=== PATIENT | male | born 1940 | race African-American/Black ===

== ENCOUNTER 2016-08-24 15:18 | Inpatient (IN) | payer MEDICARE ==
[~2016-08-24] VITALS: Ht 175.3 cm; Wt 88.2 kg
[2016-08-24 15:50] LABS: BASO # 0.1 x10^3/uL (0.0-0.2); BASO % 2 % (0-3); EOS % 1 % (0-3); HEMOGLOBIN 12.3 g/dL (13.0-17.5); LYMPH % 31 % (24-48); MEAN CORPUSCULAR HEMOGLOBIN 34 pg (25-35); MEAN CORPUSCULAR HGB CONC 34 g/dL (31-37); MEAN CORPUSCULAR VOLUME 98 fL (79-100); MONO % 10 % (0-9); NEUT % 56 % (31-73); PLATELET COUNT 206 x10^3/uL (140-400); RED BLOOD COUNT 3.68 x10^6/uL (4.30-5.70); RED CELL DISTRIBUTION WIDTH 13.8 % (11.5-14.5); WHITE BLOOD COUNT 3.4 x10^3/uL (4.0-11.0)
--- NOTE | 2016-08-24 15:56 | RAD ---
Exam performed: One view chest. Indication: STROKE W/U Date of Service: 08/24/2016 5:40 PM Comparison: One view chest from 09/30/12. Single AP upright portable view chest findings: Cardiomediastinal silhouette is within upper limits of normal. There is minimal blunting of the left costophrenic angle likely tiny pleural effusion or pleural thickening. No acute infiltrates or pneumothorax is detected. The bony structures are normal. Impression: No acute cardiopulmonary process is detected.
[2016-08-24 15:57] LABS: PROTHROMBIN TIME PATIENT 12.9 SEC (11.7-14.0)
--- NOTE | 2016-08-24 16:05 | RAD ---
Exam performed: CT scan of the head without contrast. Date of Service: 04/30/13. Comparison: None available. Clinical History: Dizziness and syncope. Technique: Helical acquisitions are obtained from the foramen magnum to the vertex without intravenous administration of contrast. Findings: Mild prominence of cortical sulci and ventricular system with age related atrophy. There are areas of low-attenuation in both periventricular cortical deep white matter assisting small vessel ischemic changes. Normal kimbrough-white differentiation is maintained. There is no extra axial fluid collection, intraparenchymal hemorrhage or mass lesion. The visualized portions of the orbits, and the mastoid air cells appear clear. Mucoperiosteal thickening involving bilateral maxillary sinuses. The calvarium is intact. Impression: 1. No acute intracranial process detected. 2. Age-related atrophy and bilateral periventricular small vessel ischemic changes. 3. Chronic bilateral maxillary sinus disease. PQRS Compliance Statement: One or more of the following individualized dose reduction techniques were utilized for this examination: 1. Automated exposure control 2. Adjustment of the mA and/or kV according to patient size 3. Use of iterative reconstruction technique
[2016-08-24 16:08] LABS: CALCIUM 9.3 mg/dL (8.5-10.1); CREATININE 0.8 mg/dL (0.7-1.3); GFR 94.2; POTASSIUM 4.1 mmol/L (3.5-5.1)
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
[2016-08-24 16:16] LABS: ALBUMIN 2.9 g/dL (3.4-5.0); ALBUMIN/GLOBULIN RATIO 0.6 (1.0-1.7); MAGNESIUM 0.5 mg/dL (1.8-2.4); TOTAL BILIRUBIN 0.5 mg/dL (0.2-1.0); TOTAL PROTEIN 7.8 g/dL (6.4-8.2)
[2016-08-24] MEDS ORDERED: IV NORMAL SALINE 1000ML BAG 1,000 ML IV ONE (17:00)
[2016-08-24] MEDS ORDERED: fentaNYL PF VIAL 100 MCG/2 ML VIAL IV PRN (17:00)
[2016-08-24] MEDS ORDERED: ONDANSETRON PF 4 MG/2 ML VIAL. IV PRN (17:00)
[2016-08-24 18:20] VITALS: BP 160/89
[2016-08-24 18:28] VITALS: BP 160/89
[2016-08-24 19:10] VITALS: BP 146/75
[2016-08-24 23:10] VITALS: BP 129/83
--- NOTE | 2016-08-25 01:15 | HP ---
ADMIT DATE: 08/24/2016 CHIEF COMPLAINT: Leg weakness and alcohol withdrawal. HISTORY OF PRESENT ILLNESS: The patient is a pleasant 76-year-old male who drinks too much. States that he was in the shower, his legs gave out, he dropped to the ground. He may have almost passed out. He is complaining of some progressive weakness. I have discussed the case with the ER physician. We are going to admit the patient and consult Neurology. PAST MEDICAL HISTORY: Alcoholism, hypertension. ALLERGIES: None. FAMILY HISTORY: Diabetes. SOCIAL HISTORY: Drinks a lot of alcohol, no drugs. MEDICATIONS: Reviewed. REVIEW OF SYSTEMS: GENERAL: No history of weight change, weakness or fevers. SKIN: No bruising, hair changes or rashes. EYES: No blurred, double or loss of vision. NOSE AND THROAT: No history of nosebleeds, hoarseness or sore throat. HEART: No history of palpitations, chest pain or shortness of breath on exertion. LUNGS: Denies cough, hemoptysis, wheezing or shortness of breath. GASTROINTESTINAL: Denies changes in appetite, nausea, vomiting, diarrhea or constipation. GENITOURINARY: No history of frequency, urgency, hesitancy or nocturia. NEUROLOGIC: ____ weakness. PSYCHIATRIC: No history of panic, anxiety or depression. ENDOCRINE: No history of heat or cold intolerance, polyuria or polydipsia. EXTREMITIES: Denies muscle weakness, joint pain, pain on walking or stiffness. PHYSICAL EXAMINATION: VITAL SIGNS: Temperature afebrile, pulse 74, respirations 23, blood pressure 119/68. GENERAL: He is alert, cooperative. HEART: Normal S1, S2. LUNGS: Clear. ABDOMEN: Soft, positive bowel sounds. He has got some ascites. EXTREMITIES: 1+ edema. SKIN: No rashes. PSYCHIATRIC: Stable. VASCULAR: Good capillary refill. ENDOCRINE: No thyromegaly. LYMPHATICS: No cervical nodes. HEMATOPOIETIC: No bruising. ASSESSMENT AND PLAN: Transient ischemic attack. The patient has been admitted. We will check carotid Doppler, consult Neurology. Suspect he will need an MRI. Alcohol withdrawal protocol. PT, OT. RUSTY CALLE DO DR: SHAYNE/ta JOB#: [id number] / [id number]
[2016-08-25 03:10] VITALS: BP 145/77
[2016-08-25 05:00] LABS: BASO % 1 % (0-3); EOS % 0 % (0-3); HEMATOCRIT 32.9 % (39.0-53.0); HEMOGLOBIN 11.9 g/dL (13.0-17.5); LYMPH # 0.8 x10^3/uL (1.0-4.8); LYMPH % 22 % (24-48); MEAN CORPUSCULAR HEMOGLOBIN 35 pg (25-35); MEAN CORPUSCULAR HGB CONC 36 g/dL (31-37); MEAN CORPUSCULAR VOLUME 97 fL (79-100); MONO % 13 % (0-9); NEUT % 64 % (31-73); PLATELET COUNT 198 x10^3/uL (140-400); RED CELL DISTRIBUTION WIDTH 13.6 % (11.5-14.5); WHITE BLOOD COUNT 3.6 x10^3/uL (4.0-11.0)
[2016-08-25 05:15] LABS: CALCIUM 9.3 mg/dL (8.5-10.1); CREATININE 0.7 mg/dL (0.7-1.3); POTASSIUM 3.6 mmol/L (3.5-5.1)
[2016-08-25 07:00] VITALS: BP 174/88
[2016-08-25] MEDS ORDERED: cloNIDine HCL 0.1 MG TABLET PO PRN (08:45)
[2016-08-25] MEDS ORDERED: chlordiazePOXIDE HCL 25 MG CAPSULE PO PRN ×2 (08:45)
[2016-08-25] MEDS ORDERED: diphenhydrAMINE 50 MG/ML VIAL IVP PRN (08:45)
[2016-08-25] MEDS ORDERED: LORazepam 100 MG in IV NORMAL SALINE 100ML 50 ML IV PRN (08:45)
[2016-08-25] MEDS ORDERED: LORazepam 1 MG TABLET PO PRN (08:45)
[2016-08-25] MEDS ORDERED: HALOPERIDOL LACTATE 5 MG/ML VIAL. IVP PRN (08:45)
[2016-08-25] MEDS: LORazepam 1 MG TABLET PO PRN (09:27)
[2016-08-25 09:37] LABS: ALBUMIN 2.6 g/dL (3.4-5.0); DIRECT BILIRUBIN 0.3 mg/dL (0.0-0.2); TOTAL BILIRUBIN 0.5 mg/dL (0.2-1.0)
[2016-08-25] MEDS ORDERED: METO50TA2 PO (10:58)
[2016-08-25] MEDS ORDERED: PANT40TA5 PO (10:58)
[2016-08-25] MEDS ORDERED: DOXA4TAB2 PO (10:58)
[2016-08-25] MEDS ORDERED: LOSA1TAB18 PO (10:58)
[2016-08-25] MEDS ORDERED: SIMV20TA3 PO (10:58)
[2016-08-25] MEDS ORDERED: POTASSIUM CHLO10 MEQ PO (10:58)
[2016-08-25 11:00] VITALS: BP 130/88
--- NOTE | 2016-08-25 12:32 | PDOC ---
PROGRESS NOTES Chief Complaint Chief Complaint 1. TIA 2. Hyponatremia 3. Alcoholism 4. Hypertension History of Present Illness History of Present Illness Patient seen this am in NAD. Reviewed results of chest x-ray and head CT with patient. Informed patient of low sodium 127 and potassium 3.6. Will replace these electrolytes. Informed patient of his high blood pressure readings and that Norvasc 10 mg will be added. Patient understands plan of action. Vitals Vitals Vital Signs Date Time Temp Pulse Resp B/P (MAP) Pulse Ox O2 Delivery O2 Flow Rate FiO2 08/25/16 11:00 98.7 120 20 130/88 (102) 93 Room Air 98.7 Physical Exam General: Alert, Oriented X3, Cooperative Heart: Regular rate, Normal S1, Normal S2 Lungs: Clear Abdomen: Normal bowel sounds, Soft, No tenderness, No hepatosplenomegaly Extremities: No clubbing, No cyanosis Skin: No rashes, No breakdown, No significant lesion Labs LABS Laboratory Tests Test 08/24/16 15:35 08/25/16 04:35 White Blood Count 3.4 x10^3/uL (4.0-11.0) 3.6 x10^3/uL (4.0-11.0) Red Blood Count 3.68 x10^6/uL (4.30-5.70) 3.40 x10^6/uL (4.30-5.70) Hemoglobin 12.3 g/dL (13.0-17.5) 11.9 g/dL (13.0-17.5) Hematocrit 36.0 % (39.0-53.0) 32.9 % (39.0-53.0) Mean Corpuscular Volume 98 fL (79-100) 97 fL (79-100) Mean Corpuscular Hemoglobin 34 pg (25-35) 35 pg (25-35) Mean Corpuscular Hemoglobin Concent 34 g/dL (31-37) 36 g/dL (31-37) Red Cell Distribution Width 13.8 % (11.5-14.5) 13.6 % (11.5-14.5) Platelet Count 206 x10^3/uL (140-400) 198 x10^3/uL (140-400) Neutrophils (%) (Auto) 56 % (31-73) 64 % (31-73) Lymphocytes (%) (Auto) 31 % (24-48) 22 % (24-48) Monocytes (%) (Auto) 10 % (0-9) 13 % (0-9) Eosinophils (%) (Auto) 1 % (0-3) 0 % (0-3) Basophils (%) (Auto) 2 % (0-3) 1 % (0-3) Neutrophils # (Auto) 1.9 x10^3uL (1.8-7.7) 2.3 x10^3uL (1.8-7.7) Lymphocytes # (Auto) 1.0 x10^3/uL (1.0-4.8) 0.8 x10^3/uL (1.0-4.8) Monocytes # (Auto) 0.3 x10^3/uL (0.0-1.1) 0.5 x10^3/uL (0.0-1.1) Eosinophils # (Auto) 0.0 x10^3/uL (0.0-0.7) 0.0 x10^3/uL (0.0-0.7) Basophils # (Auto) 0.1 x10^3/uL (0.0-0.2) 0.0 x10^3/uL (0.0-0.2) Prothrombin Time 12.9 SEC (11.7-14.0) Prothromb Time International Ratio 1.0 (0.8-1.1) Activated Partial Thromboplast Time 30 SEC (24-38) Sodium Level 123 mmol/L (136-145) 127 mmol/L (136-145) Potassium Level 4.1 mmol/L (3.5-5.1) 3.6 mmol/L (3.5-5.1) Chloride Level 87 mmol/L (98-107) 90 mmol/L (98-107) Carbon Dioxide Level 28 mmol/L (21-32) 26 mmol/L (21-32) Anion Gap 8 (6-14) 11 (6-14) Blood Urea Nitrogen 7 mg/dL (8-26) 6 mg/dL (8-26) Creatinine 0.8 mg/dL (0.7-1.3) 0.7 mg/dL (0.7-1.3) Estimated GFR (Cockcroft-Gault) 94.2 133.0 BUN/Creatinine Ratio 9 (6-20) Glucose Level 105 mg/dL (70-99) 84 mg/dL (70-99) Calcium Level 9.3 mg/dL (8.5-10.1) 9.3 mg/dL (8.5-10.1) Magnesium Level 0.5 mg/dL (1.8-2.4) Total Bilirubin 0.5 mg/dL (0.2-1.0) 0.5 mg/dL (0.2-1.0) Aspartate Amino Transf (AST/SGOT) 94 U/L (15-37) 75 U/L (15-37) Alanine Aminotransferase (ALT/SGPT) 56 U/L (16-63) 51 U/L (16-63) Alkaline Phosphatase 57 U/L (46-116) 47 U/L (46-116) Creatine Kinase 159 U/L (39-308) Troponin I Quantitative < 0.017 ng/mL (0.000-0.055) YB-Xlg-T-Type Natriuretic Peptide 124 pg/mL (0-449) Total Protein 7.8 g/dL (6.4-8.2) 7.0 g/dL (6.4-8.2) Albumin 2.9 g/dL (3.4-5.0) 2.6 g/dL (3.4-5.0) Albumin/Globulin Ratio 0.6 (1.0-1.7) Lipase 1307 U/L (73-393) Thyroid Stimulating Hormone (TSH) 0.581 uIU/mL (0.358-3.74) Ethyl Alcohol Level 240 mg/dL (0-10) Direct Bilirubin 0.3 mg/dL (0.0-0.2) Review of Systems Review of Systems No fever/chills No rashes No JVD No chest pain Assessment and Plan Assessmemt and Plan Problems Medical Problems: (1) Alcohol abuse Status: Acute (2) Hyponatremia Status: Acute (3) Pancreatitis Status: Acute (4) TIA (transient ischemic attack) Status: Acute 5. Hypertension Plan: -Continue current medications and adjust accordingly as needed. -Add Norvasc 10 mg PO to med list. -Administer NS 75 ml/hr. Last sodium 127. -Administer 40 mEq KCl. Last potassium 3.6. -Involve PT/OT. -Continue speciality consultation. -Continue blood draws to monitor Na and K. Problems: Comment Review of Relevant I have reviewed the following items azeb (where applicable) has been applied. Labs Laboratory Tests Test 08/24/16 15:35 08/25/16 04:35 White Blood Count 3.4 x10^3/uL (4.0-11.0) 3.6 x10^3/uL (4.0-11.0) Red Blood Count 3.68 x10^6/uL (4.30-5.70) 3.40 x10^6/uL (4.30-5.70) Hemoglobin 12.3 g/dL (13.0-17.5) 11.9 g/dL (13.0-17.5) Hematocrit 36.0 % (39.0-53.0) 32.9 % (39.0-53.0) Mean Corpuscular Volume 98 fL (79-100) 97 fL (79-100) Mean Corpuscular Hemoglobin 34 pg (25-35) 35 pg (25-35) Mean Corpuscular Hemoglobin Concent 34 g/dL (31-37) 36 g/dL (31-37) Red Cell Distribution Width 13.8 % (11.5-14.5) 13.6 % (11.5-14.5) Platelet Count 206 x10^3/uL (140-400) 198 x10^3/uL (140-400) Neutrophils (%) (Auto) 56 % (31-73) 64 % (31-73) Lymphocytes (%) (Auto) 31 % (24-48) 22 % (24-48) Monocytes (%) (Auto) 10 % (0-9) 13 % (0-9) Eosinophils (%) (Auto) 1 % (0-3) 0 % (0-3) Basophils (%) (Auto) 2 % (0-3) 1 % (0-3) Neutrophils # (Auto) 1.9 x10^3uL (1.8-7.7) 2.3 x10^3uL (1.8-7.7) Lymphocytes # (Auto) 1.0 x10^3/uL (1.0-4.8) 0.8 x10^3/uL (1.0-4.8) Monocytes # (Auto) 0.3 x10^3/uL (0.0-1.1) 0.5 x10^3/uL (0.0-1.1) Eosinophils # (Auto) 0.0 x10^3/uL (0.0-0.7) 0.0 x10^3/uL (0.0-0.7) Basophils # (Auto) 0.1 x10^3/uL (0.0-0.2) 0.0 x10^3/uL (0.0-0.2) Prothrombin Time 12.9 SEC (11.7-14.0) Prothromb Time International Ratio 1.0 (0.8-1.1) Activated Partial Thromboplast Time 30 SEC (24-38) Sodium Level 123 mmol/L (136-145) 127 mmol/L (136-145) Potassium Level 4.1 mmol/L (3.5-5.1) 3.6 mmol/L (3.5-5.1) Chloride Level 87 mmol/L (98-107) 90 mmol/L (98-107) Carbon Dioxide Level 28 mmol/L (21-32) 26 mmol/L (21-32) Anion Gap 8 (6-14) 11 (6-14) Blood Urea Nitrogen 7 mg/dL (8-26) 6 mg/dL (8-26) Creatinine 0.8 mg/dL (0.7-1.3) 0.7 mg/dL (0.7-1.3) Estimated GFR (Cockcroft-Gault) 94.2 133.0 BUN/Creatinine Ratio 9 (6-20) Glucose Level 105 mg/dL (70-99) 84 mg/dL (70-99) Calcium Level 9.3 mg/dL (8.5-10.1) 9.3 mg/dL (8.5-10.1) Magnesium Level 0.5 mg/dL (1.8-2.4) Total Bilirubin 0.5 mg/dL (0.2-1.0) 0.5 mg/dL (0.2-1.0) Aspartate Amino Transf (AST/SGOT) 94 U/L (15-37) 75 U/L (15-37) Alanine Aminotransferase (ALT/SGPT) 56 U/L (16-63) 51 U/L (16-63) Alkaline Phosphatase 57 U/L (46-116) 47 U/L (46-116) Creatine Kinase 159 U/L (39-308) Troponin I Quantitative < 0.017 ng/mL (0.000-0.055) KD-Sbl-H-Type Natriuretic Peptide 124 pg/mL (0-449) Total Protein 7.8 g/dL (6.4-8.2) 7.0 g/dL (6.4-8.2) Albumin 2.9 g/dL (3.4-5.0) 2.6 g/dL (3.4-5.0) Albumin/Globulin Ratio 0.6 (1.0-1.7) Lipase 1307 U/L (73-393) Thyroid Stimulating Hormone (TSH) 0.581 uIU/mL (0.358-3.74) Ethyl Alcohol Level 240 mg/dL (0-10) Direct Bilirubin 0.3 mg/dL (0.0-0.2) Laboratory Tests Test 08/24/16 15:35 08/25/16 04:35 White Blood Count 3.4 x10^3/uL (4.0-11.0) 3.6 x10^3/uL (4.0-11.0) Red Blood Count 3.68 x10^6/uL (4.30-5.70) 3.40 x10^6/uL (4.30-5.70) Hemoglobin 12.3 g/dL (13.0-17.5) 11.9 g/dL (13.0-17.5) Hematocrit 36.0 % (39.0-53.0) 32.9 % (39.0-53.0) Mean Corpuscular Volume 98 fL (79-100) 97 fL (79-100) Mean Corpuscular Hemoglobin 34 pg (25-35) 35 pg (25-35) Mean Corpuscular Hemoglobin Concent 34 g/dL (31-37) 36 g/dL (31-37) Red Cell Distribution Width 13.8 % (11.5-14.5) 13.6 % (11.5-14.5) Platelet Count 206 x10^3/uL (140-400) 198 x10^3/uL (140-400) Neutrophils (%) (Auto) 56 % (31-73) 64 % (31-73) Lymphocytes (%) (Auto) 31 % (24-48) 22 % (24-48) Monocytes (%) (Auto) 10 % (0-9) 13 % (0-9) Eosinophils (%) (Auto) 1 % (0-3) 0 % (0-3) Basophils (%) (Auto) 2 % (0-3) 1 % (0-3) Neutrophils # (Auto) 1.9 x10^3uL (1.8-7.7) 2.3 x10^3uL (1.8-7.7) Lymphocytes # (Auto) 1.0 x10^3/uL (1.0-4.8) 0.8 x10^3/uL (1.0-4.8) Monocytes # (Auto) 0.3 x10^3/uL (0.0-1.1) 0.5 x10^3/uL (0.0-1.1) Eosinophils # (Auto) 0.0 x10^3/uL (0.0-0.7) 0.0 x10^3/uL (0.0-0.7) Basophils # (Auto) 0.1 x10^3/uL (0.0-0.2) 0.0 x10^3/uL (0.0-0.2) Prothrombin Time 12.9 SEC (11.7-14.0) Prothromb Time International Ratio 1.0 (0.8-1.1) Activated Partial Thromboplast Time 30 SEC (24-38) Sodium Level 123 mmol/L (136-145) 127 mmol/L (136-145) Potassium Level 4.1 mmol/L (3.5-5.1) 3.6 mmol/L (3.5-5.1) Chloride Level 87 mmol/L (98-107) 90 mmol/L (98-107) Carbon Dioxide Level 28 mmol/L (21-32) 26 mmol/L (21-32) Anion Gap 8 (6-14) 11 (6-14) Blood Urea Nitrogen 7 mg/dL (8-26) 6 mg/dL (8-26) Creatinine 0.8 mg/dL (0.7-1.3) 0.7 mg/dL (0.7-1.3) Estimated GFR (Cockcroft-Gault) 94.2 133.0 BUN/Creatinine Ratio 9 (6-20) Glucose Level 105 mg/dL (70-99) 84 mg/dL (70-99) Calcium Level 9.3 mg/dL (8.5-10.1) 9.3 mg/dL (8.5-10.1) Magnesium Level 0.5 mg/dL (1.8-2.4) Total Bilirubin 0.5 mg/dL (0.2-1.0) 0.5 mg/dL (0.2-1.0) Aspartate Amino Transf (AST/SGOT) 94 U/L (15-37) 75 U/L (15-37) Alanine Aminotransferase (ALT/SGPT) 56 U/L (16-63) 51 U/L (16-63) Alkaline Phosphatase 57 U/L (46-116) 47 U/L (46-116) Creatine Kinase 159 U/L (39-308) Troponin I Quantitative < 0.017 ng/mL (0.000-0.055) EB-Jqx-T-Type Natriuretic Peptide 124 pg/mL (0-449) Total Protein 7.8 g/dL (6.4-8.2) 7.0 g/dL (6.4-8.2) Albumin 2.9 g/dL (3.4-5.0) 2.6 g/dL (3.4-5.0) Albumin/Globulin Ratio 0.6 (1.0-1.7) Lipase 1307 U/L (73-393) Thyroid Stimulating Hormone (TSH) 0.581 uIU/mL (0.358-3.74) Ethyl Alcohol Level 240 mg/dL (0-10) Direct Bilirubin 0.3 mg/dL (0.0-0.2) Medications Current Medications Ondansetron HCl (Zofran) 4 mg PRN Q8HRS PRN IV NAUSEA/VOMITING; Start 08/24/16 at 17:00; Stop 08/25/16 at 16:59 Fentanyl Citrate (Fentanyl 2ml Vial) 50 mcg PRN Q2HR PRN IV PAIN; Start at 17:00; Stop 08/25/16 at 16:59 Sodium Chloride 1,000 ml @ 100 mls/hr 1X ONCE IV Last administered on t 17:31; Start 08/24/16 at 17:00; Stop 08/25/16 at 02:59; Status DC Multivitamins 10 ml/Thiamine HCl 100 mg/Folic Acid 1 mg/Sodium Chloride 1,011.2 ml @ 100 mls/ hr DAILY IV ; Start 08/25/16 at 09:00; Stop 08/30/16 at 08:59 Chlordiazepoxide (Librium) 50 mg PRN Q1HR PRN PO For CIWA 8-14; Start 08/25/16 at 08:45 Chlordiazepoxide (Librium) 100 mg PRN Q1HR PRN PO For CIWA 15 or greater; Start 08/25/16 at 08:45 Lorazepam (Ativan) 4 mg PRN Q1HR PRN PO For CIWA 8-14 Last administered on 08/25t 09:27; Start 08/25/16 at 08:45 Lorazepam (Ativan) 8 mg PRN Q1HR PRN PO For CIWA 15 or greater; Start 08/25/16 at 08:45 Lorazepam (Ativan) 2 mg PRN Q1HR PRN IV For CIWA 8-14; Start 08/25/16 at 08:45 Lorazepam (Ativan) 4 mg PRN Q1HR PRN IV For CIWA 15 or greater; Start 08/25/16 at 08:45 Haloperidol Lactate (Haldol) 5 mg PRN Q4HRS PRN IVP Hallucinatns,Confusn, Delirium; Start 08/25/16 at 08:45 Diphenhydramine HCl (Benadryl) 25 mg PRN Q15MIN PRN IVP EPS symptoms 2'Haldol admin; Start 08/25/16 at 08:45 Clonidine HCl (Catapres) 0.1 mg PRN Q1HR PRN PO SBP > 180 or DBP > 100, MRX3; Start 08/25/16 at 08:45 Lorazepam (Ativan) 2 mg PRN Q15MIN PRN IV COMM; Start 08/25/16 at 08:45; Status UNV Lorazepam (Ativan) 4 mg PRN Q15MIN PRN IV COMM; Start 08/25/16 at 08:45; Status UNV Diazepam (Valium) 5 mg PRN Q5MIN PRN IV COMM; Start 08/25/16 at 08:45 Diazepam (Valium) 10 mg PRN Q5MIN PRN IV COMM; Start 08/25/16 at 08:45 Lorazepam 100 mg/ Sodium Chloride 100 ml @ 2 mls/hr CONT PRN IV PROTOCOL; Start 08/25/16 at 08:45; Status UNV Active Scripts Active Reported Losartan-Hctz 100-12.5 Mg Tab (Losartan/Hydrochlorothiazide) 1 Each Tablet 1 Tab PO DAILY Metoprolol Tartrate 50 Mg Tablet 1 Tab PO BID Pantoprazole Sodium 40 Mg Tablet.dr 1 Tab PO DAILY Simvastatin 20 Mg Tablet 1 Tab PO QHS Potassium Chloride 10 Meq Capsule.er 10 Meq PO DAILY Cardura (Doxazosin Mesylate) 4 Mg Tablet 1 Tab PO DAILY Vitals/I & O Vital Sign - Last 24 Hours 08/24/16 08/24/16 08/24/16 08/24/16 15:22 16:20 17:20 18:20 Temp 97.8 97.7 97.8 97.7 Pulse 74 80 78 84 Resp 18 18 18 16 B/P (MAP) 153/118 (130) 144/80 (101) 142/77 (98) 160/89 (112) Pulse Ox 94 97 97 91 O2 Delivery Room Air Room Air Room Air Room Air 08/24/16 08/24/16 08/24/16 08/24/16 18:28 19:10 20:00 23:10 Temp 97.7 98.1 98.0 97.7 98.1 98.0 Pulse 84 80 90 Resp 16 20 20 B/P (MAP) 160/89 (112) 146/75 (98) 129/83 (98) Pulse Ox 91 94 92 O2 Delivery Room Air Room Air Room Air Room Air 08/25/16 08/25/16 08/25/16 03:10 07:00 11:00 Temp 98.3 98.6 98.7 98.3 98.6 98.7 Pulse 91 91 120 Resp 20 20 20 B/P (MAP) 145/77 (99) 174/88 (116) 130/88 (102) Pulse Ox 90 93 93 O2 Delivery Room Air Room Air Room Air Intake and Output 08/24/16 08/24/16 08/25/16 14:59 22:59 06:59 Intake Total 50 ml Output Total 1525 ml Balance -1475 ml RUSTY CALLE III DO August 25, 2016 12:32
[2016-08-25] MEDS ORDERED: POTASSIUM CHLORIDE 20 MEQ TABLET.ER. PO ONE (13:00)
[2016-08-25] MEDS: amLODIPine BESYLATE 10 MG TABLET PO SCH (13:04)
[2016-08-25] MEDS: MULTIVIT INFUSN,ADULT 4,VIT K 10 ML, THIAMINE 100 MG, FOLIC ACID 1 MG in IV NORMAL SALI... IV SCH (13:04)
[2016-08-25] MEDS: IV NORMAL SALINE 1000ML BAG 1,000 ML IV SCH (14:00)
--- NOTE | 2016-08-25 14:25 | PDOC2 ---
NEUROLOGY CONSULT Date of Admission Date of Admission Full Report Dictated DATE: 08/25/16 TIME: 14:24 Current Medications Current Medications Current Medications Ondansetron HCl (Zofran) 4 mg PRN Q8HRS PRN IV NAUSEA/VOMITING; Start 08/24/16 at 17:00; Stop 08/25/16 at 16:59 Fentanyl Citrate (Fentanyl 2ml Vial) 50 mcg PRN Q2HR PRN IV PAIN; Start at 17:00; Stop 08/25/16 at 16:59 Sodium Chloride 1,000 ml @ 100 mls/hr 1X ONCE IV Last administered on 17:31; Start 08/24/16 at 17:00; Stop 08/25/16 at 02:59; Status DC Multivitamins 10 ml/Thiamine HCl 100 mg/Folic Acid 1 mg/Sodium Chloride 1,011.2 ml @ 100 mls/ hr DAILY IV Last administered on 08/25/16 13:04; Start at 09:00; Stop 08/30/16 at 08:59 Chlordiazepoxide (Librium) 50 mg PRN Q1HR PRN PO For CIWA 8-14; Start 08/25/16 at 08:45 Chlordiazepoxide (Librium) 100 mg PRN Q1HR PRN PO For CIWA 15 or greater; Start 08/25/16 at 08:45 Lorazepam (Ativan) 4 mg PRN Q1HR PRN PO For CIWA 8-14 Last administered on 08/25 09:27; Start 08/25/16 at 08:45 Lorazepam (Ativan) 8 mg PRN Q1HR PRN PO For CIWA 15 or greater; Start 08/25/16 at 08:45 Lorazepam (Ativan) 2 mg PRN Q1HR PRN IV For CIWA 8-14; Start 08/25/16 at 08:45 Lorazepam (Ativan) 4 mg PRN Q1HR PRN IV For CIWA 15 or greater; Start 08/25/16 at 08:45 Haloperidol Lactate (Haldol) 5 mg PRN Q4HRS PRN IVP Hallucinatns,Confusn, Delirium; Start 08/25/16 at 08:45 Diphenhydramine HCl (Benadryl) 25 mg PRN Q15MIN PRN IVP EPS symptoms 2'Haldol admin; Start 08/25/16 at 08:45 Clonidine HCl (Catapres) 0.1 mg PRN Q1HR PRN PO SBP > 180 or DBP > 100, MRX3; Start 08/25/16 at 08:45 Lorazepam (Ativan) 2 mg PRN Q15MIN PRN IV COMM; Start 08/25/16 at 08:45; Status UNV Lorazepam (Ativan) 4 mg PRN Q15MIN PRN IV COMM; Start 08/25/16 at 08:45; Status UNV Diazepam (Valium) 5 mg PRN Q5MIN PRN IV COMM; Start 08/25/16 at 08:45 Diazepam (Valium) 10 mg PRN Q5MIN PRN IV COMM; Start 08/25/16 at 08:45 Lorazepam 100 mg/ Sodium Chloride 100 ml @ 2 mls/hr CONT PRN IV PROTOCOL; Start 08/25/16 at 08:45; Status UNV Sodium Chloride 1,000 ml @ 75 mls/hr [id number] IV ; Start 08/25/16 at 14:00 Potassium Chloride (Klor-Con) 40 meq 1X ONCE PO Last administered on 13:03; Start 08/25/16 at 13:00; Stop 08/25/16 at 13:01; Status DC Amlodipine Besylate (Norvasc) 10 mg DAILY PO Last administered on 08/25/16 13: 04; Start 08/25/16 at 13:00 Active Scripts Active Reported Losartan-Hctz 100-12.5 Mg Tab (Losartan/Hydrochlorothiazide) 1 Each Tablet 1 Tab PO DAILY Metoprolol Tartrate 50 Mg Tablet 1 Tab PO BID Pantoprazole Sodium 40 Mg Tablet.dr 1 Tab PO DAILY Simvastatin 20 Mg Tablet 1 Tab PO QHS Potassium Chloride 10 Meq Capsule.er 10 Meq PO DAILY Cardura (Doxazosin Mesylate) 4 Mg Tablet 1 Tab PO DAILY Allergies Allergies: Coded Allergies: No Known Drug Allergies (Unverified , 08/24/16) Vitals VITALS Vital Signs Date Time Temp Pulse Resp B/P (MAP) Pulse Ox O2 Delivery O2 Flow Rate FiO2 08/25/16 13:04 120 130/88 08/25/16 11:00 98.7 20 93 Room Air 98.7 Labs Labs Laboratory Tests Test 08/24/16 15:35 08/25/16 04:35 White Blood Count 3.4 x10^3/uL (4.0-11.0) 3.6 x10^3/uL (4.0-11.0) Red Blood Count 3.68 x10^6/uL (4.30-5.70) 3.40 x10^6/uL (4.30-5.70) Hemoglobin 12.3 g/dL (13.0-17.5) 11.9 g/dL (13.0-17.5) Hematocrit 36.0 % (39.0-53.0) 32.9 % (39.0-53.0) Mean Corpuscular Volume 98 fL (79-100) 97 fL (79-100) Mean Corpuscular Hemoglobin 34 pg (25-35) 35 pg (25-35) Mean Corpuscular Hemoglobin Concent 34 g/dL (31-37) 36 g/dL (31-37) Red Cell Distribution Width 13.8 % (11.5-14.5) 13.6 % (11.5-14.5) Platelet Count 206 x10^3/uL (140-400) 198 x10^3/uL (140-400) Neutrophils (%) (Auto) 56 % (31-73) 64 % (31-73) Lymphocytes (%) (Auto) 31 % (24-48) 22 % (24-48) Monocytes (%) (Auto) 10 % (0-9) 13 % (0-9) Eosinophils (%) (Auto) 1 % (0-3) 0 % (0-3) Basophils (%) (Auto) 2 % (0-3) 1 % (0-3) Neutrophils # (Auto) 1.9 x10^3uL (1.8-7.7) 2.3 x10^3uL (1.8-7.7) Lymphocytes # (Auto) 1.0 x10^3/uL (1.0-4.8) 0.8 x10^3/uL (1.0-4.8) Monocytes # (Auto) 0.3 x10^3/uL (0.0-1.1) 0.5 x10^3/uL (0.0-1.1) Eosinophils # (Auto) 0.0 x10^3/uL (0.0-0.7) 0.0 x10^3/uL (0.0-0.7) Basophils # (Auto) 0.1 x10^3/uL (0.0-0.2) 0.0 x10^3/uL (0.0-0.2) Prothrombin Time 12.9 SEC (11.7-14.0) Prothromb Time International Ratio 1.0 (0.8-1.1) Activated Partial Thromboplast Time 30 SEC (24-38) Sodium Level 123 mmol/L (136-145) 127 mmol/L (136-145) Potassium Level 4.1 mmol/L (3.5-5.1) 3.6 mmol/L (3.5-5.1) Chloride Level 87 mmol/L (98-107) 90 mmol/L (98-107) Carbon Dioxide Level 28 mmol/L (21-32) 26 mmol/L (21-32) Anion Gap 8 (6-14) 11 (6-14) Blood Urea Nitrogen 7 mg/dL (8-26) 6 mg/dL (8-26) Creatinine 0.8 mg/dL (0.7-1.3) 0.7 mg/dL (0.7-1.3) Estimated GFR (Cockcroft-Gault) 94.2 133.0 BUN/Creatinine Ratio 9 (6-20) Glucose Level 105 mg/dL (70-99) 84 mg/dL (70-99) Calcium Level 9.3 mg/dL (8.5-10.1) 9.3 mg/dL (8.5-10.1) Magnesium Level 0.5 mg/dL (1.8-2.4) Total Bilirubin 0.5 mg/dL (0.2-1.0) 0.5 mg/dL (0.2-1.0) Aspartate Amino Transf (AST/SGOT) 94 U/L (15-37) 75 U/L (15-37) Alanine Aminotransferase (ALT/SGPT) 56 U/L (16-63) 51 U/L (16-63) Alkaline Phosphatase 57 U/L (46-116) 47 U/L (46-116) Creatine Kinase 159 U/L (39-308) Troponin I Quantitative < 0.017 ng/mL (0.000-0.055) SC-Gnw-V-Type Natriuretic Peptide 124 pg/mL (0-449) Total Protein 7.8 g/dL (6.4-8.2) 7.0 g/dL (6.4-8.2) Albumin 2.9 g/dL (3.4-5.0) 2.6 g/dL (3.4-5.0) Albumin/Globulin Ratio 0.6 (1.0-1.7) Lipase 1307 U/L (73-393) Thyroid Stimulating Hormone (TSH) 0.581 uIU/mL (0.358-3.74) Ethyl Alcohol Level 240 mg/dL (0-10) Direct Bilirubin 0.3 mg/dL (0.0-0.2) Laboratory Tests Test 08/24/16 15:35 08/25/16 04:35 White Blood Count 3.4 x10^3/uL (4.0-11.0) 3.6 x10^3/uL (4.0-11.0) Red Blood Count 3.68 x10^6/uL (4.30-5.70) 3.40 x10^6/uL (4.30-5.70) Hemoglobin 12.3 g/dL (13.0-17.5) 11.9 g/dL (13.0-17.5) Hematocrit 36.0 % (39.0-53.0) 32.9 % (39.0-53.0) Mean Corpuscular Volume 98 fL (79-100) 97 fL (79-100) Mean Corpuscular Hemoglobin 34 pg (25-35) 35 pg (25-35) Mean Corpuscular Hemoglobin Concent 34 g/dL (31-37) 36 g/dL (31-37) Red Cell Distribution Width 13.8 % (11.5-14.5) 13.6 % (11.5-14.5) Platelet Count 206 x10^3/uL (140-400) 198 x10^3/uL (140-400) Neutrophils (%) (Auto) 56 % (31-73) 64 % (31-73) Lymphocytes (%) (Auto) 31 % (24-48) 22 % (24-48) Monocytes (%) (Auto) 10 % (0-9) 13 % (0-9) Eosinophils (%) (Auto) 1 % (0-3) 0 % (0-3) Basophils (%) (Auto) 2 % (0-3) 1 % (0-3) Neutrophils # (Auto) 1.9 x10^3uL (1.8-7.7) 2.3 x10^3uL (1.8-7.7) Lymphocytes # (Auto) 1.0 x10^3/uL (1.0-4.8) 0.8 x10^3/uL (1.0-4.8) Monocytes # (Auto) 0.3 x10^3/uL (0.0-1.1) 0.5 x10^3/uL (0.0-1.1) Eosinophils # (Auto) 0.0 x10^3/uL (0.0-0.7) 0.0 x10^3/uL (0.0-0.7) Basophils # (Auto) 0.1 x10^3/uL (0.0-0.2) 0.0 x10^3/uL (0.0-0.2) Prothrombin Time 12.9 SEC (11.7-14.0) Prothromb Time International Ratio 1.0 (0.8-1.1) Activated Partial Thromboplast Time 30 SEC (24-38) Sodium Level 123 mmol/L (136-145) 127 mmol/L (136-145) Potassium Level 4.1 mmol/L (3.5-5.1) 3.6 mmol/L (3.5-5.1) Chloride Level 87 mmol/L (98-107) 90 mmol/L (98-107) Carbon Dioxide Level 28 mmol/L (21-32) 26 mmol/L (21-32) Anion Gap 8 (6-14) 11 (6-14) Blood Urea Nitrogen 7 mg/dL (8-26) 6 mg/dL (8-26) Creatinine 0.8 mg/dL (0.7-1.3) 0.7 mg/dL (0.7-1.3) Estimated GFR (Cockcroft-Gault) 94.2 133.0 BUN/Creatinine Ratio 9 (6-20) Glucose Level 105 mg/dL (70-99) 84 mg/dL (70-99) Calcium Level 9.3 mg/dL (8.5-10.1) 9.3 mg/dL (8.5-10.1) Magnesium Level 0.5 mg/dL (1.8-2.4) Total Bilirubin 0.5 mg/dL (0.2-1.0) 0.5 mg/dL (0.2-1.0) Aspartate Amino Transf (AST/SGOT) 94 U/L (15-37) 75 U/L (15-37) Alanine Aminotransferase (ALT/SGPT) 56 U/L (16-63) 51 U/L (16-63) Alkaline Phosphatase 57 U/L (46-116) 47 U/L (46-116) Creatine Kinase 159 U/L (39-308) Troponin I Quantitative < 0.017 ng/mL (0.000-0.055) [id number]-Type Natriuretic Peptide 124 pg/mL (0-449) Total Protein 7.8 g/dL (6.4-8.2) 7.0 g/dL (6.4-8.2) Albumin 2.9 g/dL (3.4-5.0) 2.6 g/dL (3.4-5.0) Albumin/Globulin Ratio 0.6 (1.0-1.7) Lipase 1307 U/L (73-393) Thyroid Stimulating Hormone (TSH) 0.581 uIU/mL (0.358-3.74) Ethyl Alcohol Level 240 mg/dL (0-10) Direct Bilirubin 0.3 mg/dL (0.0-0.2) Assessment/Plan Assessment/Plan Patient is a 76-year-old man with a long history of heavy alcohol consumption who fell over forward when trying to leaf size picker the dog's water bowl. There was no loss of consciousness or syncopal episode. He has bilateral leg weakness at the hips. I also feel he's got cognitive deficits. We can obtain some labs looking for deficiency state if not artery obtained. CAT scan of the head did not reveal an acute process. He is going to require rehabilitation for balance and strength. GABRIEL BERNARD MD August 25, 2016 14:25
[2016-08-25] MEDS: METOPROLOL TART IMMED RELEASE 50 MG TABLET. PO SCH ×2 (14:31→20:49)
--- NOTE | 2016-08-25 14:32 | PDOC2 ---
CARDIOLOGY CONSULT NOTE CHEIF COMPLAINT: fall Problems: HPI: 76 y.o with mechanical fall in the setting of alcohol abuse at baseline he is active, denies any chest pain, dyspnea, orthopnea or PND reports compliance with meds cardiology called for sinus tachy on monitor. PMHX: alcohol abuse HTN SOCHX: Lives at home with girlfriend. Drinks 1/2pint daily. smokes 1/2ppd FAMHX: NC CURRENT MEDS: Current Medications Medications (Trade) Dose Ordered Sig/Keith Start Time Stop Time Status Last Admin Dose Admin Amlodipine Besylate (Norvasc) 10 mg DAILY 08/25/16 13:00 08/25/16 13:04 10 MG Chlordiazepoxide (Librium) 100 mg PRN Q1HR PRN 08/25/16 08:45 Clonidine HCl (Catapres) 0.1 mg PRN Q1HR PRN 08/25/16 08:45 Diazepam (Valium) 10 mg PRN Q5MIN PRN 08/25/16 08:45 Diphenhydramine HCl (Benadryl) 25 mg PRN Q15MIN PRN 08/25/16 08:45 Fentanyl Citrate (Fentanyl 2ml Vial) 50 mcg PRN Q2HR PRN 08/24/16 17:00 08/25/16 16:59 Haloperidol Lactate (Haldol) 5 mg PRN Q4HRS PRN 08/25/16 08:45 Lorazepam (Ativan) 4 mg PRN Q15MIN PRN 08/25/16 08:45 UNV Lorazepam 100 mg/ Sodium Chloride 100 ml @ 2 mls/hr CONT PRN 08/25/16 08:45 UNV Metoprolol Tartrate (Lopressor) 50 mg BID 08/25/16 21:00 UNV Multivitamins 10 ml/Thiamine HCl 100 mg/Folic Acid 1 mg/Sodium Chloride 1,011.2 ml @ 100 mls/ hr DAILY 08/25/16 09:00 08/30/16 08:59 08/25/16 13:04 100 MLS/HR Ondansetron HCl (Zofran) 4 mg PRN Q8HRS PRN 08/24/16 17:00 08/25/16 16:59 Potassium Chloride (Klor-Con) 40 meq 1X ONCE 08/25/16 13:00 08/25/16 13:01 DC 08/25/16 13:03 40 MEQ Sodium Chloride 1,000 ml @ 75 mls/hr [id number] 08/25/16 14:00 ALLERGIES: Allergies Coded Allergies Type Severity Reaction Last Updated Verified No Known Drug Allergies 08/24/16 No ROS: Negative for 01/26 systems reviewed. PHYSICAL EXAM: Vital Signs: Vital Signs Date Time Temp Pulse Resp B/P (MAP) Pulse Ox O2 Delivery O2 Flow Rate FiO2 08/25/16 13:04 120 130/88 08/25/16 11:00 98.7 20 93 Room Air 98.7 I & O Intake and Output 08/25/16 07:00 Intake Total 50 ml Output Total 1525 ml Balance -1475 ml Intake Oral 50 ml Output Urine Total 1525 ml Physical Exam: A/O x 3. NAD Tachycardic, regular no m/r/g no carotid bruits normal lung sounds abd soft no edema non-focal neuro exam DIAGNOSTIC TESTING: EKG ST with RBBB. CT head negative. Lab Laboratory Tests Test 08/24/16 15:35 08/25/16 04:35 White Blood Count 3.4 x10^3/uL (4.0-11.0) L 3.6 x10^3/uL (4.0-11.0) L Red Blood Count 3.68 x10^6/uL (4.30-5.70) L 3.40 x10^6/uL (4.30-5.70) L Hemoglobin 12.3 g/dL (13.0-17.5) L 11.9 g/dL (13.0-17.5) L Hematocrit 36.0 % (39.0-53.0) L 32.9 % (39.0-53.0) L Mean Corpuscular Volume 98 fL (79-100) 97 fL (79-100) Mean Corpuscular Hemoglobin 34 pg (25-35) 35 pg (25-35) Mean Corpuscular Hemoglobin Concent 34 g/dL (31-37) 36 g/dL (31-37) Red Cell Distribution Width 13.8 % (11.5-14.5) 13.6 % (11.5-14.5) Platelet Count 206 x10^3/uL (140-400) 198 x10^3/uL (140-400) Neutrophils (%) (Auto) 56 % (31-73) 64 % (31-73) Lymphocytes (%) (Auto) 31 % (24-48) 22 % (24-48) L Monocytes (%) (Auto) 10 % (0-9) H 13 % (0-9) H Eosinophils (%) (Auto) 1 % (0-3) 0 % (0-3) Basophils (%) (Auto) 2 % (0-3) 1 % (0-3) Neutrophils # (Auto) 1.9 x10^3uL (1.8-7.7) 2.3 x10^3uL (1.8-7.7) Lymphocytes # (Auto) 1.0 x10^3/uL (1.0-4.8) 0.8 x10^3/uL (1.0-4.8) L Monocytes # (Auto) 0.3 x10^3/uL (0.0-1.1) 0.5 x10^3/uL (0.0-1.1) Eosinophils # (Auto) 0.0 x10^3/uL (0.0-0.7) 0.0 x10^3/uL (0.0-0.7) Basophils # (Auto) 0.1 x10^3/uL (0.0-0.2) 0.0 x10^3/uL (0.0-0.2) Prothrombin Time 12.9 SEC (11.7-14.0) Prothromb Time International Ratio 1.0 (0.8-1.1) Activated Partial Thromboplast Time 30 SEC (24-38) Sodium Level 123 mmol/L (136-145) L 127 mmol/L (136-145) L Potassium Level 4.1 mmol/L (3.5-5.1) 3.6 mmol/L (3.5-5.1) Chloride Level 87 mmol/L (98-107) L 90 mmol/L (98-107) L Carbon Dioxide Level 28 mmol/L (21-32) 26 mmol/L (21-32) Anion Gap 8 (6-14) 11 (6-14) Blood Urea Nitrogen 7 mg/dL (8-26) L 6 mg/dL (8-26) L Creatinine 0.8 mg/dL (0.7-1.3) 0.7 mg/dL (0.7-1.3) Estimated GFR (Cockcroft-Gault) 94.2 133.0 BUN/Creatinine Ratio 9 (6-20) Glucose Level 105 mg/dL (70-99) H 84 mg/dL (70-99) Calcium Level 9.3 mg/dL (8.5-10.1) 9.3 mg/dL (8.5-10.1) Total Bilirubin 0.5 mg/dL (0.2-1.0) 0.5 mg/dL (0.2-1.0) Aspartate Amino Transf (AST/SGOT) 94 U/L (15-37) H 75 U/L (15-37) H Alkaline Phosphatase 57 U/L (46-116) 47 U/L (46-116) Creatine Kinase 159 U/L (39-308) Total Protein 7.8 g/dL (6.4-8.2) 7.0 g/dL (6.4-8.2) Albumin 2.9 g/dL (3.4-5.0) L 2.6 g/dL (3.4-5.0) L Albumin/Globulin Ratio 0.6 (1.0-1.7) L Lipase 1307 U/L (73-393) H Thyroid Stimulating Hormone (TSH) 0.581 uIU/mL (0.358-3.74) Ethyl Alcohol Level 240 mg/dL (0-10) H Direct Bilirubin 0.3 mg/dL (0.0-0.2) H ASSESSMENT: 1. Sinus tachycardia likely secondary to dehydration, alcoholism 2. HTN PLAN: 1. IVF 2. Restart home meds 3. If persistent tachy after home meds restarted, consider increasing metoprolol. This may convert into some SVT (aflutter or atrial tachy) given his presentation but will defer aggressive treatment until electrolytes and dehydration correction. Will follow peripherally. SHARRI NAVA MD August 25, 2016 14:32
--- NOTE | 2016-08-25 14:42 | ACF ---
Admission Forms Criteria TRANSIENT ISCHEMIC ATTACK (TIA) Clinical Indications for Admission to Inpatient Care (Place 'X' for any and all applicable criteria): Admission is indicated for ANY ONE of the following(1)(2)(3)(4)(5): [ ]I. Immediate inpatient procedure is needed (eg, endarterectomy). [X]II. Inpatient admission required rather than observation care (Also use Transient Ischemic Attack (TIA): Observation Care Criteria as appropriate) because of ANY ONE of the following: [X]a) Focal neurologic signs or symptoms persist or recurring [ ]b) Cardiac arrhythmias of immediate concern [ ]c) Clinically significant cardiac disorder identified that requires inpatient care (eg, severe valvular disease, atrial myxoma, cardiomyopathy) [ ]d) Hypertension requiring inpatient treatment [ ]e) Parenteral anticoagulation required (eg, alternative forms of anticoagulation not appropriate or not feasible) as indicated by ALL of the following(13): [ ]i) Temporary subtherapeutic anticoagulation unacceptable because of high risk of short-term venous or arterial thromboembolism due to ANY ONE of the following(14)(15)(16): [ ]1) Atrial fibrillation suspected as etiology of TIA(17)(18)(19)(20)(21) [ ]2) Venous thromboembolism within past 12 months [ ]3) Underlying malignancy [ ]4) Patient with mechanical cardiac valve(22)( 23) [ ]5) Underlying hypercoagulable state (eg, protein C or protein S deficiency antithrombin deficiency, antiphospholipid antibodies) [ ]6) Patient at temporary high risk of thromboembolism (eg, status post orthopedic surgery) [ ]ii) Contraindications to outpatient use of "bridging" agent or alternative oral anticoagulant[B] as indicated by ALL of the following: [ ]1) Contraindication to outpatient use of low- molecular-weight heparin as "bridging" agent as indicated by ANY ONE of the following(15): [ ]A. Documented current or history of heparin-induced thrombocytopenia(24) [ ]B. Severe thrombocytopenia (eg, platelet count less than 50,000/mm3 (58t470/L) [ ]C. Documented allergy to heparin, low- molecular-weight heparin, or pork products [ ]D. Renal failure (creatinine clearance less than 30 mL/min/1.73m2 (0.50mL/sec/1.73m2) or on dialysis) [ ]E. Inability to manage self-injection ( eg, by patient, caregiver, or visiting nurse) [ ]2) Contraindication to outpatient use of fondaparinux as "bridging" agent as indicated by ANY ONE of the following(25)(26 )(27)(28): [ ]A. Severe thrombocytopenia (eg, platelet count less than 50,000/mm3 (50 x109/L)) [ ]B.Hypersensitivity to fondaparinux, related drugs, or product components [ ]C.Renal failure (creatinine clearance less than 30 mL/min/1.73m2 (0.50mL/sec/1.73m2) or on dialysis) [ ]D.Inability to manage self-injection ( eg, by patient, caregiver, or visiting nurse [ ]3. Oral direct thrombin inhibitor (eg, dabigatran) or oral coagulation factor Xa inhibitor (eg, rivaroxaban, apixaban) not appropriate as oral anticoagulation (eg, indication not appropriate) or contraindicated (eg, hypersensitivity, creatinine clearance less than 15 mL/min/1.73m2 ( 0.25 mL/sec/1.73m2) or on dialysis). [ ]f) Continuous IV infusion of anticoagulant, platelet inhibitor, vasoactive or antiarrhythmia(18)(19) [ ]g) Other condition, treatment, or monitoring requiring inpatient admission [ ]III. Contraindications and/or Inappropriate clinical situations for Observational Care in patients with Transient Ischemic Attack (TIA), when ANY ONE of the following is required: [ ]a) Patient with persistent or severe neurological deficit 24 [ ]b) Patient with acute CVA or other identified pathology should be admitted to inpatient for further care 25 [ ]IV. General contraindications and/or Inappropriate clinical situations for Observational Care in patients with Transient Ischemic Attack (TIA), when ANY ONE of the following is required: [ ]a) Prediction of prolongation of LOS based on ANY ONE of the following may be considered as a contraindication for observational care 2, 3, 4, 5, 6, 7, 8, 9, 10, 11 [ ]i) Age > 65 yrs. [ ]ii) Patient arriving by ambulance [ ]iii) Patient with high acuity [ ]iv) Patient requiring vital sign monitoring [ ]v) Patient on IV medication [ ]b) Systolic blood pressures 180mmHg 3,12 [ ]c) Patient with altered mental status including delirium and other alteration of consciousness, (3) [ ]d) Patient whose discharge disposition will be to a senior care home or rehabilitation home should not be managed in Emergency Department Observation Unit. CMS rule requires 3 days hospital stay before such placement.3,13 [ ]e) Patient with failure to thrive due to broad array of etiologies 3,16,17 [ ]f) Inability to ambulate 3,14 Extended stay beyond goal length of stay may be needed for(4)(30)(32): [ ]a) Parenteral anticoagulation required [ ]b) Dangerous arrhythmia [ ]c) Cardiac valvular disorder, atrial myxoma, cardiomyopathy [ ]d) Uncontrolled severe hypertension [ ]e) Severe carotid stenosis [ ]f) Active comorbidities (eg, heart failure) [ ]g) Extracranial vertebrobasilar disease(29) [ ]h) Clinical evolution of TIA into cerebrovascular accident (stroke) The original [employer] [facility] content created by [employer] has been revised. The portions of thecontent which have been revised are identified through the use of italic text or in bold, and [facility] has neither reviewed nor approved the modified material. All other unmodified content is copyright [facility]. Please see references footnoted in the original [employer] [facility] edition 2016 Admission Criteria Met?: Yes ALEXANDR ANDREA August 25, 2016 14:42
--- NOTE | 2016-08-25 14:45 | EKG ---
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
[2016-08-25 15:00] VITALS: BP 111/72
[2016-08-25 19:43] VITALS: BP 142/89
[2016-08-25] MEDS ORDERED: METOPROLOL TART IMMED RELEASE 50 MG TABLET. PO SCH ×2 (21:00)
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
[2016-08-25 23:09] VITALS: BP 138/89
[2016-08-26] VITALS (7 sets, daily range): BP systolic 111–196; BP diastolic 67–119
[2016-08-26] MEDS: IV NORMAL SALINE 1000ML BAG 1,000 ML IV SCH ×2 (01:33→15:19)
[2016-08-26 05:35] LABS: BASO % 1 % (0-3); EOS % 2 % (0-3); HEMATOCRIT 36.9 % (39.0-53.0); HEMOGLOBIN 12.9 g/dL (13.0-17.5); LYMPH # 1.2 x10^3/uL (1.0-4.8); LYMPH % 36 % (24-48); MEAN CORPUSCULAR HEMOGLOBIN 35 pg (25-35); MEAN CORPUSCULAR HGB CONC 35 g/dL (31-37); MEAN CORPUSCULAR VOLUME 99 fL (79-100); MONO % 18 % (0-9); NEUT % 44 % (31-73); PLATELET COUNT 190 x10^3/uL (140-400); RED BLOOD COUNT 3.75 x10^6/uL (4.30-5.70); RED CELL DISTRIBUTION WIDTH 14.1 % (11.5-14.5); WHITE BLOOD COUNT 3.4 x10^3/uL (4.0-11.0)
[2016-08-26 05:39] LABS: CALCIUM 9.7 mg/dL (8.5-10.1); CREATININE 0.7 mg/dL (0.7-1.3); POTASSIUM 3.6 mmol/L (3.5-5.1)
[2016-08-26] MEDS: LORazepam 1 MG TABLET PO PRN ×2 (07:28→19:53)
[2016-08-26] MEDS: METOPROLOL TART IMMED RELEASE 50 MG TABLET. PO SCH ×2 (07:29→19:53)
[2016-08-26] MEDS: amLODIPine BESYLATE 10 MG TABLET PO SCH (07:30)
[2016-08-26] MEDS: MULTIVIT INFUSN,ADULT 4,VIT K 10 ML, THIAMINE 100 MG, FOLIC ACID 1 MG in IV NORMAL SALI... IV SCH (08:33)
[2016-08-26] MEDS ORDERED: hydroCHLOROthiazide 12.5 MG CAPSULE PO SCH (09:00)
--- NOTE | 2016-08-26 13:26 | PDOC ---
PROGRESS NOTES Chief Complaint Chief Complaint 1. TIA 2. Hyponatremia 3. Alcoholism 4. Hypertension History of Present Illness History of Present Illness Patient seen this am in NAD. Discussed pt's continued high BP despite adding Norvasc yesterday Discussed w/ pt need to diuerese more fluid off to manage BP Patient understands plan of action. Vitals Vitals Vital Signs Date Time Temp Pulse Resp B/P (MAP) Pulse Ox O2 Delivery O2 Flow Rate FiO2 08/26/16 11:00 97.7 71 20 120/67 (84) 92 Room Air 97.7 Physical Exam General: Alert, Oriented X3, Cooperative Heart: Regular rate, Normal S1, Normal S2 Lungs: Clear, Other (no wheezing) Abdomen: Normal bowel sounds, Soft, No tenderness, No hepatosplenomegaly Extremities: No clubbing, No cyanosis Skin: No rashes, No breakdown, No significant lesion Labs LABS Laboratory Tests Test 08/26/16 04:40 White Blood Count 3.4 x10^3/uL (4.0-11.0) Red Blood Count 3.75 x10^6/uL (4.30-5.70) Hemoglobin 12.9 g/dL (13.0-17.5) Hematocrit 36.9 % (39.0-53.0) Mean Corpuscular Volume 99 fL (79-100) Mean Corpuscular Hemoglobin 35 pg (25-35) Mean Corpuscular Hemoglobin Concent 35 g/dL (31-37) Red Cell Distribution Width 14.1 % (11.5-14.5) Platelet Count 190 x10^3/uL (140-400) Neutrophils (%) (Auto) 44 % (31-73) Lymphocytes (%) (Auto) 36 % (24-48) Monocytes (%) (Auto) 18 % (0-9) Eosinophils (%) (Auto) 2 % (0-3) Basophils (%) (Auto) 1 % (0-3) Neutrophils # (Auto) 1.5 x10^3uL (1.8-7.7) Lymphocytes # (Auto) 1.2 x10^3/uL (1.0-4.8) Monocytes # (Auto) 0.6 x10^3/uL (0.0-1.1) Eosinophils # (Auto) 0.1 x10^3/uL (0.0-0.7) Basophils # (Auto) 0.0 x10^3/uL (0.0-0.2) Sodium Level 135 mmol/L (136-145) Potassium Level 3.6 mmol/L (3.5-5.1) Chloride Level 97 mmol/L (98-107) Carbon Dioxide Level 32 mmol/L (21-32) Anion Gap 6 (6-14) Blood Urea Nitrogen 5 mg/dL (8-26) Creatinine 0.7 mg/dL (0.7-1.3) Estimated GFR (Cockcroft-Gault) 133.0 Glucose Level 122 mg/dL (70-99) Calcium Level 9.7 mg/dL (8.5-10.1) Review of Systems Review of Systems Denies chest pain Denies SOA Assessment and Plan Assessmemt and Plan Problems Medical Problems: (1) Alcohol abuse Status: Acute (2) Hyponatremia Status: Acute (3) Pancreatitis Status: Acute (4) TIA (transient ischemic attack) Status: Acute Assessment: 1. TIA - neuro r/o - most likely syncope related to EtOH abuse 2. Hyponatremia - resolved 3. Alcoholism 4. Hypertension Plan: -Continue current medications and adjust accordingly as needed. -D/C hydrochlorothiazide and start Lasix 40 mg QD -Start KCl 20 mEq - last K at 3.6 but prevent hypokalemia secondary to adding lasix -Administer 40 mEq KCl. Last potassium 3.6. -Involve PT/OT. -Continue speciality consultation. -Continue blood draws to monitor Na and K. -Check labs in am Problems: Comment Review of Relevant I have reviewed the following items azeb (where applicable) has been applied. Labs Laboratory Tests Test 08/24/16 15:35 08/25/16 04:35 08/26/16 04:40 White Blood Count 3.4 x10^3/uL (4.0-11.0) 3.6 x10^3/uL (4.0-11.0) 3.4 x10^3/uL (4.0-11.0) Red Blood Count 3.68 x10^6/uL (4.30-5.70) 3.40 x10^6/uL (4.30-5.70) 3.75 x10^6/uL (4.30-5.70) Hemoglobin 12.3 g/dL (13.0-17.5) 11.9 g/dL (13.0-17.5) 12.9 g/dL (13.0-17.5) Hematocrit 36.0 % (39.0-53.0) 32.9 % (39.0-53.0) 36.9 % (39.0-53.0) Mean Corpuscular Volume 98 fL (79-100) 97 fL (79-100) 99 fL (79-100) Mean Corpuscular Hemoglobin 34 pg (25-35) 35 pg (25-35) 35 pg (25-35) Mean Corpuscular Hemoglobin Concent 34 g/dL (31-37) 36 g/dL (31-37) 35 g/dL (31-37) Red Cell Distribution Width 13.8 % (11.5-14.5) 13.6 % (11.5-14.5) 14.1 % (11.5-14.5) Platelet Count 206 x10^3/uL (140-400) 198 x10^3/uL (140-400) 190 x10^3/uL (140-400) Neutrophils (%) (Auto) 56 % (31-73) 64 % (31-73) 44 % (31-73) Lymphocytes (%) (Auto) 31 % (24-48) 22 % (24-48) 36 % (24-48) Monocytes (%) (Auto) 10 % (0-9) 13 % (0-9) 18 % (0-9) Eosinophils (%) (Auto) 1 % (0-3) 0 % (0-3) 2 % (0-3) Basophils (%) (Auto) 2 % (0-3) 1 % (0-3) 1 % (0-3) Neutrophils # (Auto) 1.9 x10^3uL (1.8-7.7) 2.3 x10^3uL (1.8-7.7) 1.5 x10^3uL (1.8-7.7) Lymphocytes # (Auto) 1.0 x10^3/uL (1.0-4.8) 0.8 x10^3/uL (1.0-4.8) 1.2 x10^3/uL (1.0-4.8) Monocytes # (Auto) 0.3 x10^3/uL (0.0-1.1) 0.5 x10^3/uL (0.0-1.1) 0.6 x10^3/uL (0.0-1.1) Eosinophils # (Auto) 0.0 x10^3/uL (0.0-0.7) 0.0 x10^3/uL (0.0-0.7) 0.1 x10^3/uL (0.0-0.7) Basophils # (Auto) 0.1 x10^3/uL (0.0-0.2) 0.0 x10^3/uL (0.0-0.2) 0.0 x10^3/uL (0.0-0.2) Prothrombin Time 12.9 SEC (11.7-14.0) Prothromb Time International Ratio 1.0 (0.8-1.1) Activated Partial Thromboplast Time 30 SEC (24-38) Sodium Level 123 mmol/L (136-145) 127 mmol/L (136-145) 135 mmol/L (136-145) Potassium Level 4.1 mmol/L (3.5-5.1) 3.6 mmol/L (3.5-5.1) 3.6 mmol/L (3.5-5.1) Chloride Level 87 mmol/L (98-107) 90 mmol/L (98-107) 97 mmol/L (98-107) Carbon Dioxide Level 28 mmol/L (21-32) 26 mmol/L (21-32) 32 mmol/L (21-32) Anion Gap 8 (6-14) 11 (6-14) 6 (6-14) Blood Urea Nitrogen 7 mg/dL (8-26) 6 mg/dL (8-26) 5 mg/dL (8-26) Creatinine 0.8 mg/dL (0.7-1.3) 0.7 mg/dL (0.7-1.3) 0.7 mg/dL (0.7-1.3) Estimated GFR (Cockcroft-Gault) 94.2 133.0 133.0 BUN/Creatinine Ratio 9 (6-20) Glucose Level 105 mg/dL (70-99) 84 mg/dL (70-99) 122 mg/dL (70-99) Calcium Level 9.3 mg/dL (8.5-10.1) 9.3 mg/dL (8.5-10.1) 9.7 mg/dL (8.5-10.1) Magnesium Level 0.5 mg/dL (1.8-2.4) Total Bilirubin 0.5 mg/dL (0.2-1.0) 0.5 mg/dL (0.2-1.0) Aspartate Amino Transf (AST/SGOT) 94 U/L (15-37) 75 U/L (15-37) Alanine Aminotransferase (ALT/SGPT) 56 U/L (16-63) 51 U/L (16-63) Alkaline Phosphatase 57 U/L (46-116) 47 U/L (46-116) Creatine Kinase 159 U/L (39-308) Troponin I Quantitative < 0.017 ng/mL (0.000-0.055) TA-Rcg-V-Type Natriuretic Peptide 124 pg/mL (0-449) Total Protein 7.8 g/dL (6.4-8.2) 7.0 g/dL (6.4-8.2) Albumin 2.9 g/dL (3.4-5.0) 2.6 g/dL (3.4-5.0) Albumin/Globulin Ratio 0.6 (1.0-1.7) Lipase 1307 U/L (73-393) Thyroid Stimulating Hormone (TSH) 0.581 uIU/mL (0.358-3.74) Ethyl Alcohol Level 240 mg/dL (0-10) Direct Bilirubin 0.3 mg/dL (0.0-0.2) Laboratory Tests Test 08/26/16 04:40 White Blood Count 3.4 x10^3/uL (4.0-11.0) Red Blood Count 3.75 x10^6/uL (4.30-5.70) Hemoglobin 12.9 g/dL (13.0-17.5) Hematocrit 36.9 % (39.0-53.0) Mean Corpuscular Volume 99 fL (79-100) Mean Corpuscular Hemoglobin 35 pg (25-35) Mean Corpuscular Hemoglobin Concent 35 g/dL (31-37) Red Cell Distribution Width 14.1 % (11.5-14.5) Platelet Count 190 x10^3/uL (140-400) Neutrophils (%) (Auto) 44 % (31-73) Lymphocytes (%) (Auto) 36 % (24-48) Monocytes (%) (Auto) 18 % (0-9) Eosinophils (%) (Auto) 2 % (0-3) Basophils (%) (Auto) 1 % (0-3) Neutrophils # (Auto) 1.5 x10^3uL (1.8-7.7) Lymphocytes # (Auto) 1.2 x10^3/uL (1.0-4.8) Monocytes # (Auto) 0.6 x10^3/uL (0.0-1.1) Eosinophils # (Auto) 0.1 x10^3/uL (0.0-0.7) Basophils # (Auto) 0.0 x10^3/uL (0.0-0.2) Sodium Level 135 mmol/L (136-145) Potassium Level 3.6 mmol/L (3.5-5.1) Chloride Level 97 mmol/L (98-107) Carbon Dioxide Level 32 mmol/L (21-32) Anion Gap 6 (6-14) Blood Urea Nitrogen 5 mg/dL (8-26) Creatinine 0.7 mg/dL (0.7-1.3) Estimated GFR (Cockcroft-Gault) 133.0 Glucose Level 122 mg/dL (70-99) Calcium Level 9.7 mg/dL (8.5-10.1) Medications Current Medications Ondansetron HCl (Zofran) 4 mg PRN Q8HRS PRN IV NAUSEA/VOMITING; Start 08/24/16 at 17:00; Stop 08/25/16 at 16:59; Status DC Fentanyl Citrate (Fentanyl 2ml Vial) 50 mcg PRN Q2HR PRN IV PAIN; Start at 17:00; Stop 08/25/16 at 16:59; Status DC Sodium Chloride 1,000 ml @ 100 mls/hr 1X ONCE IV Last administered on t 17:31; Start 08/24/16 at 17:00; Stop 08/25/16 at 02:59; Status DC Multivitamins 10 ml/Thiamine HCl 100 mg/Folic Acid 1 mg/Sodium Chloride 1,011.2 ml @ 100 mls/ hr DAILY IV Last administered on 08/26/16 08:33; Start at 09:00; Stop 08/30/16 at 08:59 Chlordiazepoxide (Librium) 50 mg PRN Q1HR PRN PO For CIWA 8-14 Last administered on 08/25/16 20:50; Start 08/25/16 at 08:45 Chlordiazepoxide (Librium) 100 mg PRN Q1HR PRN PO For CIWA 15 or greater; Start 08/25/16 at 08:45 Lorazepam (Ativan) 4 mg PRN Q1HR PRN PO For CIWA 8-14 Last administered on 08/26 07:28; Start 08/25/16 at 08:45 Lorazepam (Ativan) 8 mg PRN Q1HR PRN PO For CIWA 15 or greater; Start 08/25/16 at 08:45 Lorazepam (Ativan) 2 mg PRN Q1HR PRN IV For CIWA 8-14 Last administered on 08/26 01:32; Start 08/25/16 at 08:45 Lorazepam (Ativan) 4 mg PRN Q1HR PRN IV For CIWA 15 or greater; Start 08/25/16 at 08:45 Haloperidol Lactate (Haldol) 5 mg PRN Q4HRS PRN IVP Hallucinatns,Confusn, Delirium Last administered on 08/26/16 03:23; Start 08/25/16 at 08:45 Diphenhydramine HCl (Benadryl) 25 mg PRN Q15MIN PRN IVP EPS symptoms 2'Haldol admin; Start 08/25/16 at 08:45 Clonidine HCl (Catapres) 0.1 mg PRN Q1HR PRN PO SBP > 180 or DBP > 100, MRX3; Start 08/25/16 at 08:45 Lorazepam (Ativan) 2 mg PRN Q15MIN PRN IV COMM; Start 08/25/16 at 08:45; Status UNV Lorazepam (Ativan) 4 mg PRN Q15MIN PRN IV COMM; Start 08/25/16 at 08:45; Status UNV Diazepam (Valium) 5 mg PRN Q5MIN PRN IV COMM; Start 08/25/16 at 08:45 Diazepam (Valium) 10 mg PRN Q5MIN PRN IV COMM; Start 08/25/16 at 08:45 Lorazepam 100 mg/ Sodium Chloride 100 ml @ 2 mls/hr CONT PRN IV PROTOCOL; Start 08/25/16 at 08:45; Status UNV Sodium Chloride 1,000 ml @ 75 mls/hr [id number] IV Last administered on 01:33; Start 08/25/16 at 14:00 Potassium Chloride (Klor-Con) 40 meq 1X ONCE PO Last administered on 13:03; Start 08/25/16 at 13:00; Stop 08/25/16 at 13:01; Status DC Amlodipine Besylate (Norvasc) 10 mg DAILY PO Last administered on 08/26/16 07: 30; Start 08/25/16 at 13:00 Metoprolol Tartrate (Lopressor) 50 mg BID PO ; Start 08/25/16 at 21:00; Stop at 21:00; Status DC Metoprolol Tartrate (Lopressor) 50 mg BID PO ; Start 08/25/16 at 21:00; Stop at 21:00; Status DC Metoprolol Tartrate (Lopressor) 50 mg BID PO Last administered on 08/26/16 07: 29; Start 08/25/16 at 14:30 Doxazosin Mesylate (Cardura) 4 mg DAILY PO ; Start 08/26/16 at 09:00 Pantoprazole Sodium (Protonix) 40 mg DAILYAC PO ; Start 08/26/16 at 09:00 Simvastatin (Zocor) 20 mg QHS PO ; Start 08/26/16 at 21:00 Losartan Potassium (Cozaar) 100 mg DAILY PO ; Start 08/26/16 at 09:00 Hydrochlorothiazide (Microzide) 12.5 mg DAILY PO ; Start 08/26/16 at 09:00 Active Scripts Active Reported Losartan-Hctz 100-12.5 Mg Tab (Losartan/Hydrochlorothiazide) 1 Each Tablet 1 Tab PO DAILY Metoprolol Tartrate 50 Mg Tablet 1 Tab PO BID Pantoprazole Sodium 40 Mg Tablet.dr 1 Tab PO DAILY Simvastatin 20 Mg Tablet 1 Tab PO QHS Potassium Chloride 10 Meq Capsule.er 10 Meq PO DAILY Cardura (Doxazosin Mesylate) 4 Mg Tablet 1 Tab PO DAILY Vitals/I & O Vital Sign - Last 24 Hours 08/25/16 08/25/16 08/25/16 08/25/16 14:31 15:00 19:43 20:00 Temp 98.5 97.7 98.5 97.7 Pulse 140 126 90 Resp 20 18 B/P (MAP) 111/72 (85) 142/89 (106) Pulse Ox 99 95 O2 Delivery Room Air Room Air Room Air 08/25/16 08/25/16 08/26/16 08/26/16 20:49 23:09 03:38 07:00 Temp 98.0 98.1 97.5 98.0 98.1 97.5 Pulse 90 91 78 91 Resp 18 20 B/P (MAP) 142/89 138/89 (105) 159/104 (122) 196/119 (144) Pulse Ox 96 98 95 O2 Delivery Room Air Room Air Room Air 08/26/16 08/26/16 08/26/16 08/26/16 07:29 07:30 08:00 11:00 Temp 97.7 97.7 Pulse 80 78 71 Resp 20 B/P (MAP) 196/119 197/119 120/67 (84) Pulse Ox 92 O2 Delivery Room Air Room Air Intake and Output 08/25/16 08/25/16 08/26/16 15:00 23:00 07:00 Intake Total 700 ml 0 ml Output Total 750 ml 780 ml Balance -50 ml -780 ml RUSTY CALLE III DO August 26, 2016 13:26
[2016-08-26] MEDS ORDERED: POTASSIUM CHLORIDE 20 MEQ TABLET.ER. PO ONE (13:30)
[2016-08-26] MEDS: FUROSEMIDE 40 MG TABLET. PO SCH (14:51)
[2016-08-26] MEDS: PANTOPRAZOLE 40 MG TABLET.DR. PO SCH (14:52)
[2016-08-26] MEDS: DOXAZOSIN MESYLATE 4 MG TABLET. PO SCH (14:52)
[2016-08-26] MEDS: LOSARTAN POTASSIUM 50 MG TABLET. PO SCH (14:52)
[2016-08-26] MEDS ORDERED: SIMVASTATIN 20 MG TABLET PO SCH (21:00)
[2016-08-27 02:20] VITALS: BP 162/103
[2016-08-27 03:32] LABS: BASO % 1 % (0-3); EOS % 2 % (0-3); HEMATOCRIT 36.2 % (39.0-53.0); HEMOGLOBIN 12.2 g/dL (13.0-17.5); LYMPH # 1.3 x10^3/uL (1.0-4.8); LYMPH % 25 % (24-48); MEAN CORPUSCULAR HEMOGLOBIN 34 pg (25-35); MEAN CORPUSCULAR HGB CONC 34 g/dL (31-37); MEAN CORPUSCULAR VOLUME 99 fL (79-100); MONO % 10 % (0-9); NEUT % 63 % (31-73); PLATELET COUNT 172 x10^3/uL (140-400); RED BLOOD COUNT 3.65 x10^6/uL (4.30-5.70); WHITE BLOOD COUNT 5.1 x10^3/uL (4.0-11.0)
[2016-08-27 04:00] LABS: CALCIUM 9.7 mg/dL (8.5-10.1); CREATININE 0.6 mg/dL (0.7-1.3); GFR 158.9; POTASSIUM 3.4 mmol/L (3.5-5.1)
[2016-08-27] MEDS: IV NORMAL SALINE 1000ML BAG 1,000 ML IV SCH (06:07)
[2016-08-27 07:00] VITALS: BP 172/103
[2016-08-27] MEDS ORDERED: POTASSIUM CHLORIDE 20 MEQ TABLET.ER. PO ONE (07:30)
[2016-08-27] MEDS: LOSARTAN POTASSIUM 50 MG TABLET. PO SCH (08:09)
[2016-08-27] MEDS: METOPROLOL TART IMMED RELEASE 50 MG TABLET. PO SCH (08:10)
[2016-08-27] MEDS: amLODIPine BESYLATE 10 MG TABLET PO SCH (08:11)
[2016-08-27] MEDS: FUROSEMIDE 40 MG TABLET. PO SCH (08:11)
[2016-08-27] MEDS: DOXAZOSIN MESYLATE 4 MG TABLET. PO SCH (08:11)
[2016-08-27] MEDS: PANTOPRAZOLE 40 MG TABLET.DR. PO SCH (08:12)
[2016-08-27] MEDS: cloNIDine HCL 0.1 MG TABLET PO SCH ×2 (08:12→15:08)
[2016-08-27] MEDS ORDERED: AMLO10TA4 PO (08:42)
[2016-08-27] MEDS ORDERED: CLON0.1T PO (08:42)
--- NOTE | 2016-08-27 08:46 | PDOC3 ---
Discharge Summary Visit Information Date of Admission: August 24, 2016 Date of Discharge: August 27, 2016 Admitting Diagnosis Comment: 1, ETOH 2, HYPONTREMIA 3. ENCEPHALOPATHY 4. HTN, urgency 5, HYPOKALEMIA Final Diagnosis Problems Medical Problems: (1) Alcohol abuse Status: Acute (2) Hyponatremia Status: Acute (3) Pancreatitis Status: Acute (4) TIA (transient ischemic attack) Status: Acute Brief Hospital Course Allergies Allergies Coded Allergies Type Severity Reaction Last Updated Verified No Known Drug Allergies 08/24/16 No Vital Signs Vital Signs Date Time Temp Pulse Resp B/P (MAP) Pulse Ox O2 Delivery O2 Flow Rate FiO2 08/27/16 08:12 92 172/103 08/27/16 08:00 Room Air 08/27/16 07:00 97.4 18 93 97.4 Lab Results Laboratory Tests Test 08/26/16 04:40 08/27/16 03:10 White Blood Count 3.4 x10^3/uL (4.0-11.0) 5.1 x10^3/uL (4.0-11.0) Red Blood Count 3.75 x10^6/uL (4.30-5.70) 3.65 x10^6/uL (4.30-5.70) Hemoglobin 12.9 g/dL (13.0-17.5) 12.2 g/dL (13.0-17.5) Hematocrit 36.9 % (39.0-53.0) 36.2 % (39.0-53.0) Mean Corpuscular Volume 99 fL (79-100) 99 fL (79-100) Mean Corpuscular Hemoglobin 35 pg (25-35) 34 pg (25-35) Mean Corpuscular Hemoglobin Concent 35 g/dL (31-37) 34 g/dL (31-37) Red Cell Distribution Width 14.1 % (11.5-14.5) 14.0 % (11.5-14.5) Platelet Count 190 x10^3/uL (140-400) 172 x10^3/uL (140-400) Neutrophils (%) (Auto) 44 % (31-73) 63 % (31-73) Lymphocytes (%) (Auto) 36 % (24-48) 25 % (24-48) Monocytes (%) (Auto) 18 % (0-9) 10 % (0-9) Eosinophils (%) (Auto) 2 % (0-3) 2 % (0-3) Basophils (%) (Auto) 1 % (0-3) 1 % (0-3) Neutrophils # (Auto) 1.5 x10^3uL (1.8-7.7) 3.2 x10^3uL (1.8-7.7) Lymphocytes # (Auto) 1.2 x10^3/uL (1.0-4.8) 1.3 x10^3/uL (1.0-4.8) Monocytes # (Auto) 0.6 x10^3/uL (0.0-1.1) 0.5 x10^3/uL (0.0-1.1) Eosinophils # (Auto) 0.1 x10^3/uL (0.0-0.7) 0.1 x10^3/uL (0.0-0.7) Basophils # (Auto) 0.0 x10^3/uL (0.0-0.2) 0.0 x10^3/uL (0.0-0.2) Sodium Level 135 mmol/L (136-145) 136 mmol/L (136-145) Potassium Level 3.6 mmol/L (3.5-5.1) 3.4 mmol/L (3.5-5.1) Chloride Level 97 mmol/L (98-107) 100 mmol/L (98-107) Carbon Dioxide Level 32 mmol/L (21-32) 29 mmol/L (21-32) Anion Gap 6 (6-14) 7 (6-14) Blood Urea Nitrogen 5 mg/dL (8-26) 4 mg/dL (8-26) Creatinine 0.7 mg/dL (0.7-1.3) 0.6 mg/dL (0.7-1.3) Estimated GFR (Cockcroft-Gault) 133.0 158.9 Glucose Level 122 mg/dL (70-99) 111 mg/dL (70-99) Calcium Level 9.7 mg/dL (8.5-10.1) 9.7 mg/dL (8.5-10.1) Laboratory Tests Test 08/27/16 03:10 White Blood Count 5.1 x10^3/uL (4.0-11.0) Red Blood Count 3.65 x10^6/uL (4.30-5.70) Hemoglobin 12.2 g/dL (13.0-17.5) Hematocrit 36.2 % (39.0-53.0) Mean Corpuscular Volume 99 fL (79-100) Mean Corpuscular Hemoglobin 34 pg (25-35) Mean Corpuscular Hemoglobin Concent 34 g/dL (31-37) Red Cell Distribution Width 14.0 % (11.5-14.5) Platelet Count 172 x10^3/uL (140-400) Neutrophils (%) (Auto) 63 % (31-73) Lymphocytes (%) (Auto) 25 % (24-48) Monocytes (%) (Auto) 10 % (0-9) Eosinophils (%) (Auto) 2 % (0-3) Basophils (%) (Auto) 1 % (0-3) Neutrophils # (Auto) 3.2 x10^3uL (1.8-7.7) Lymphocytes # (Auto) 1.3 x10^3/uL (1.0-4.8) Monocytes # (Auto) 0.5 x10^3/uL (0.0-1.1) Eosinophils # (Auto) 0.1 x10^3/uL (0.0-0.7) Basophils # (Auto) 0.0 x10^3/uL (0.0-0.2) Sodium Level 136 mmol/L (136-145) Potassium Level 3.4 mmol/L (3.5-5.1) Chloride Level 100 mmol/L (98-107) Carbon Dioxide Level 29 mmol/L (21-32) Anion Gap 7 (6-14) Blood Urea Nitrogen 4 mg/dL (8-26) Creatinine 0.6 mg/dL (0.7-1.3) Estimated GFR (Cockcroft-Gault) 158.9 Glucose Level 111 mg/dL (70-99) Calcium Level 9.7 mg/dL (8.5-10.1) Brief Hospital Course Mr. Ho is a 76 old AA male who drinks half a pint of vodka everyday brought in by bec of confusion and lethargy. Alcoholic, heavy half a pint vodka everyday he claims he has been cutting down, SOme hypokalemia, and hyponatremia, ON HCTZ and lisinopril and LOSartan as home med Still somewhat unsteady in gait BP high, needed to start norvasc 10 and clonidine 0.1 TID. Counselled heavy on etoh BMP in 1-2 weeks - rx given HH to be arranged DispO; Dw Pt and SW Consults: proc; none Pt seen and examined time 34 mins Discharge Information Condition at Discharge: Improved, Stable Disposition/Orders: D/C to Home w/ HH Scheduled Doxazosin Mesylate (Cardura), 1 TAB PO DAILY, (Reported) Losartan/Hydrochlorothiazide (Losartan-Hctz 100-12.5 Mg Tab), 1 TAB PO DAILY, ( Reported) Metoprolol Tartrate (Metoprolol Tartrate), 1 TAB PO BID, (Reported) Pantoprazole Sodium (Pantoprazole Sodium), 1 TAB PO DAILY, (Reported) Potassium Chloride (Potassium Chloride), 10 MEQ PO DAILY, (Reported) Simvastatin (Simvastatin), 1 TAB PO QHS, (Reported) JULIUS MONAHAN MD August 27, 2016 08:46
[2016-08-27] MEDS ORDERED: MULTIVITAMIN with MINERAL TABLET. PO SCH (09:00)
[2016-08-27] MEDS ORDERED: THIAMINE 100 MG TABLET. PO SCH (09:00)
[2016-08-27] MEDS ORDERED: FOLIC ACID 1 MG TABLET. PO SCH (09:00)
[2016-08-27 11:00] VITALS: BP 135/75
--- NOTE | 2016-08-27 12:24 | PDOC ---
PROGRESS NOTES Assessment Problems Medical Problems: (1) Alcohol abuse Status: Acute (2) Hyponatremia Status: Acute (3) Pancreatitis Status: Acute (4) TIA (transient ischemic attack) Status: Acute Mechanical fall, no evidence of stroke or transient ischemic attack Plan Agree with discharge Home health Follow-up with neurology as needed Subjective No complaints Objective Vital Signs Date Time Temp Pulse Resp B/P (MAP) Pulse Ox O2 Delivery O2 Flow Rate FiO2 08/27/16 11:00 97.8 74 18 135/75 (95) 95 Room Air 97.8 Intake and Output 08/27/16 07:00 Intake Total 400 ml Output Total 550 ml Balance -150 ml Intake Oral 400 ml Output Urine Total 550 ml PHYSICAL EXAM Alert. Oriented to time, place and person. PERRL. EOMI. CN: no focal findings. Muscle tone: normal. Muscle strength: 5/5 DTR: 1+flexor[ ] Gait: Ambulates with some assistance Sensory exam: no abnormal findings. No cerebellar signs elicited. Review of Relevant I have reviewed the following items azeb (where applicable) has been applied. Labs Laboratory Tests Test 08/26/16 04:40 08/27/16 03:10 White Blood Count 3.4 x10^3/uL (4.0-11.0) 5.1 x10^3/uL (4.0-11.0) Red Blood Count 3.75 x10^6/uL (4.30-5.70) 3.65 x10^6/uL (4.30-5.70) Hemoglobin 12.9 g/dL (13.0-17.5) 12.2 g/dL (13.0-17.5) Hematocrit 36.9 % (39.0-53.0) 36.2 % (39.0-53.0) Mean Corpuscular Volume 99 fL (79-100) 99 fL (79-100) Mean Corpuscular Hemoglobin 35 pg (25-35) 34 pg (25-35) Mean Corpuscular Hemoglobin Concent 35 g/dL (31-37) 34 g/dL (31-37) Red Cell Distribution Width 14.1 % (11.5-14.5) 14.0 % (11.5-14.5) Platelet Count 190 x10^3/uL (140-400) 172 x10^3/uL (140-400) Neutrophils (%) (Auto) 44 % (31-73) 63 % (31-73) Lymphocytes (%) (Auto) 36 % (24-48) 25 % (24-48) Monocytes (%) (Auto) 18 % (0-9) 10 % (0-9) Eosinophils (%) (Auto) 2 % (0-3) 2 % (0-3) Basophils (%) (Auto) 1 % (0-3) 1 % (0-3) Neutrophils # (Auto) 1.5 x10^3uL (1.8-7.7) 3.2 x10^3uL (1.8-7.7) Lymphocytes # (Auto) 1.2 x10^3/uL (1.0-4.8) 1.3 x10^3/uL (1.0-4.8) Monocytes # (Auto) 0.6 x10^3/uL (0.0-1.1) 0.5 x10^3/uL (0.0-1.1) Eosinophils # (Auto) 0.1 x10^3/uL (0.0-0.7) 0.1 x10^3/uL (0.0-0.7) Basophils # (Auto) 0.0 x10^3/uL (0.0-0.2) 0.0 x10^3/uL (0.0-0.2) Sodium Level 135 mmol/L (136-145) 136 mmol/L (136-145) Potassium Level 3.6 mmol/L (3.5-5.1) 3.4 mmol/L (3.5-5.1) Chloride Level 97 mmol/L (98-107) 100 mmol/L (98-107) Carbon Dioxide Level 32 mmol/L (21-32) 29 mmol/L (21-32) Anion Gap 6 (6-14) 7 (6-14) Blood Urea Nitrogen 5 mg/dL (8-26) 4 mg/dL (8-26) Creatinine 0.7 mg/dL (0.7-1.3) 0.6 mg/dL (0.7-1.3) Estimated GFR (Cockcroft-Gault) 133.0 158.9 Glucose Level 122 mg/dL (70-99) 111 mg/dL (70-99) Calcium Level 9.7 mg/dL (8.5-10.1) 9.7 mg/dL (8.5-10.1) Laboratory Tests Test 08/27/16 03:10 White Blood Count 5.1 x10^3/uL (4.0-11.0) Red Blood Count 3.65 x10^6/uL (4.30-5.70) Hemoglobin 12.2 g/dL (13.0-17.5) Hematocrit 36.2 % (39.0-53.0) Mean Corpuscular Volume 99 fL (79-100) Mean Corpuscular Hemoglobin 34 pg (25-35) Mean Corpuscular Hemoglobin Concent 34 g/dL (31-37) Red Cell Distribution Width 14.0 % (11.5-14.5) Platelet Count 172 x10^3/uL (140-400) Neutrophils (%) (Auto) 63 % (31-73) Lymphocytes (%) (Auto) 25 % (24-48) Monocytes (%) (Auto) 10 % (0-9) Eosinophils (%) (Auto) 2 % (0-3) Basophils (%) (Auto) 1 % (0-3) Neutrophils # (Auto) 3.2 x10^3uL (1.8-7.7) Lymphocytes # (Auto) 1.3 x10^3/uL (1.0-4.8) Monocytes # (Auto) 0.5 x10^3/uL (0.0-1.1) Eosinophils # (Auto) 0.1 x10^3/uL (0.0-0.7) Basophils # (Auto) 0.0 x10^3/uL (0.0-0.2) Sodium Level 136 mmol/L (136-145) Potassium Level 3.4 mmol/L (3.5-5.1) Chloride Level 100 mmol/L (98-107) Carbon Dioxide Level 29 mmol/L (21-32) Anion Gap 7 (6-14) Blood Urea Nitrogen 4 mg/dL (8-26) Creatinine 0.6 mg/dL (0.7-1.3) Estimated GFR (Cockcroft-Gault) 158.9 Glucose Level 111 mg/dL (70-99) Calcium Level 9.7 mg/dL (8.5-10.1) Medications Current Medications Ondansetron HCl (Zofran) 4 mg PRN Q8HRS PRN IV NAUSEA/VOMITING; Start 08/24/16 at 17:00; Stop 08/25/16 at 16:59; Status DC Fentanyl Citrate (Fentanyl 2ml Vial) 50 mcg PRN Q2HR PRN IV PAIN; Start at 17:00; Stop 08/25/16 at 16:59; Status DC Sodium Chloride 1,000 ml @ 100 mls/hr 1X ONCE IV Last administered on 17:31; Start 08/24/16 at 17:00; Stop 08/25/16 at 02:59; Status DC Multivitamins 10 ml/Thiamine HCl 100 mg/Folic Acid 1 mg/Sodium Chloride 1,011.2 ml @ 100 mls/ hr DAILY IV Last administered on 08/26/16 08:33; Start at 09:00; Stop 08/27/16 at 00:21; Status DC Chlordiazepoxide (Librium) 50 mg PRN Q1HR PRN PO For CIWA 8-14 Last administered on 08/25/16 20:50; Start 08/25/16 at 08:45 Chlordiazepoxide (Librium) 100 mg PRN Q1HR PRN PO For CIWA 15 or greater; Start 08/25/16 at 08:45 Lorazepam (Ativan) 4 mg PRN Q1HR PRN PO For CIWA 8-14 Last administered on 08/26 19:53; Start 08/25/16 at 08:45 Lorazepam (Ativan) 8 mg PRN Q1HR PRN PO For CIWA 15 or greater; Start 08/25/16 at 08:45 Lorazepam (Ativan) 2 mg PRN Q1HR PRN IV For CIWA 8-14 Last administered on 08/26 01:32; Start 08/25/16 at 08:45 Lorazepam (Ativan) 4 mg PRN Q1HR PRN IV For CIWA 15 or greater; Start 08/25/16 at 08:45 Haloperidol Lactate (Haldol) 5 mg PRN Q4HRS PRN IVP Hallucinatns,Confusn, Delirium Last administered on 08/26/16 03:23; Start 08/25/16 at 08:45 Diphenhydramine HCl (Benadryl) 25 mg PRN Q15MIN PRN IVP EPS symptoms 2'Haldol admin; Start 08/25/16 at 08:45 Clonidine HCl (Catapres) 0.1 mg PRN Q1HR PRN PO SBP > 180 or DBP > 100, MRX3; Start 08/25/16 at 08:45 Lorazepam (Ativan) 2 mg PRN Q15MIN PRN IV COMM; Start 08/25/16 at 08:45; Status UNV Lorazepam (Ativan) 4 mg PRN Q15MIN PRN IV COMM; Start 08/25/16 at 08:45; Status UNV Diazepam (Valium) 5 mg PRN Q5MIN PRN IV COMM; Start 08/25/16 at 08:45 Diazepam (Valium) 10 mg PRN Q5MIN PRN IV COMM; Start 08/25/16 at 08:45 Lorazepam 100 mg/ Sodium Chloride 100 ml @ 2 mls/hr CONT PRN IV PROTOCOL; Start 08/25/16 at 08:45; Status UNV Sodium Chloride 1,000 ml @ 75 mls/hr [id number] IV Last administered on 06:07; Start 08/25/16 at 14:00 Potassium Chloride (Klor-Con) 40 meq 1X ONCE PO Last administered on 13:03; Start 08/25/16 at 13:00; Stop 08/25/16 at 13:01; Status DC Amlodipine Besylate (Norvasc) 10 mg DAILY PO Last administered on 08/27/16 08: 11; Start 08/25/16 at 13:00 Metoprolol Tartrate (Lopressor) 50 mg BID PO ; Start 08/25/16 at 21:00; Stop at 21:00; Status DC Metoprolol Tartrate (Lopressor) 50 mg BID PO ; Start 08/25/16 at 21:00; Stop at 21:00; Status DC Metoprolol Tartrate (Lopressor) 50 mg BID PO Last administered on 08/27/16 08: 10; Start 08/25/16 at 14:30 Doxazosin Mesylate (Cardura) 4 mg DAILY PO Last administered on 08/27/16 08:11 ; Start 08/26/16 at 09:00 Pantoprazole Sodium (Protonix) 40 mg DAILYAC PO Last administered on 08/27/16 08:12; Start 08/26/16 at 09:00 Simvastatin (Zocor) 20 mg QHS PO Last administered on 08/26/16 19:52; Start at 21:00 Losartan Potassium (Cozaar) 100 mg DAILY PO Last administered on 08/27/16 08: 09; Start 08/26/16 at 09:00 Hydrochlorothiazide (Microzide) 12.5 mg DAILY PO ; Start 08/26/16 at 09:00; Stop 08/26/16 at 13:19; Status DC Furosemide (Lasix) 40 mg DAILY PO Last administered on 08/27/16 08:11; Start 08/26/16 at 14:00 Potassium Chloride (Klor-Con) 20 meq 1X ONCE PO Last administered on 14:51; Start 08/26/16 at 13:30; Stop 08/26/16 at 13:31; Status DC Multivitamins (Thera M Plus) 1 tab DAILY PO Last administered on 08/27/16 08: 13; Start 08/27/16 at 09:00 Folic Acid (Folic Acid) 1 mg DAILY PO Last administered on 08/27/16 08:10; Start 08/27/16 at 09:00 Thiamine Mononitrate (Vitamin B-1) 100 mg DAILY PO Last administered on 08:11; Start 08/27/16 at 09:00 Potassium Chloride (Klor-Con) 20 meq 1X ONCE PO Last administered on 08:10; Start 08/27/16 at 07:30; Stop 08/27/16 at 07:31; Status DC Clonidine HCl (Catapres) 0.1 mg Q8HRS PO Last administered on 08/27/16 08:12; Start 08/27/16 at 07:30 Active Scripts Active Reported Losartan-Hctz 100-12.5 Mg Tab (Losartan/Hydrochlorothiazide) 1 Each Tablet 1 Tab PO DAILY Metoprolol Tartrate 50 Mg Tablet 1 Tab PO BID Pantoprazole Sodium 40 Mg Tablet.dr 1 Tab PO DAILY Simvastatin 20 Mg Tablet 1 Tab PO QHS Potassium Chloride 10 Meq Capsule.er 10 Meq PO DAILY Cardura (Doxazosin Mesylate) 4 Mg Tablet 1 Tab PO DAILY Vitals/I & O Vital Sign - Last 24 Hours 08/26/16 08/26/16 08/26/16 08/26/16 13:30 13:30 14:52 14:52 Pulse 71 71 B/P (MAP) 143/68 (93) 119/72 (88) 120/67 120/67 O2 Delivery Orthostatics orthostatics 08/26/16 08/26/16 08/26/16 08/26/16 15:00 19:30 19:53 20:00 Temp 97.7 97.6 97.7 97.6 Pulse 86 116 86 Resp 20 18 B/P (MAP) 164/102 (122) 111/75 (87) 164/102 Pulse Ox 96 92 O2 Delivery Room Air Room Air Room Air 08/26/16 08/27/16 08/27/16 08/27/16 22:42 02:20 07:00 08:00 Temp 97.7 98.3 97.4 97.7 98.3 97.4 Pulse 80 77 92 Resp 18 20 18 B/P (MAP) 139/88 (105) 162/103 (122) 172/103 (126) Pulse Ox 91 92 93 O2 Delivery Room Air Room Air Room Air Room Air 08/27/16 08/27/16 08/27/16 08/27/16 08:09 08:10 08:11 08:11 Pulse 92 92 92 92 B/P (MAP) 172/103 172/103 172/103 172/103 08/27/16 08/27/16 08:12 11:00 Temp 97.8 97.8 Pulse 92 74 Resp 18 B/P (MAP) 172/103 135/75 (95) Pulse Ox 95 O2 Delivery Room Air Intake and Output 08/26/16 08/26/16 08/27/16 15:00 23:00 07:00 Intake Total 400 ml 0 ml Output Total 550 ml Balance -150 ml 0 ml PEDRO BUCHANAN MD August 27, 2016 12:24
[2016-08-27 15:00] VITALS: BP 120/80
[2016-08-27 15:08] VITALS: BP 128/80
== END 2016-08-27 17:30 | disposition home health service (06) | DRG 438 ==
LOC: ER 17:04 → 6 SOUTH 17:16
PROVIDERS: ADMIT Internal Medicine; ATTEND Internal Medicine
DX: K85.90 Acute pancreatitis without necrosis or infection, unspecified (principal); G93.40 Encephalopathy, unspecified; G45.9 Transient cerebral ischemic attack, unspecified; E87.1 Hypo-osmolality and hyponatremia; I16.0 Hypertensive urgency; F10.20 Alcohol dependence, uncomplicated; E78.00 Pure hypercholesterolemia, unspecified; E78.5 Hyperlipidemia, unspecified; E86.0 Dehydration; I10 Essential (primary) hypertension; J32.0 Chronic maxillary sinusitis; Z79.899 Other long term (current) drug therapy; Z83.3 Family history of diabetes mellitus; E87.6 Hypokalemia
CPT/HCPCS: 36415; 70450; 71010; 80048; 80053; 80076; 82550; 83690; 83735; 83880; 84443; 84484; 85027; 85610; 85730; 93005; 96360; G0480; J1630; J2060; J7030; 97116; 97530; 99285-25

== ENCOUNTER 2017-12-23 08:49 | Inpatient (IN) | payer MEDICARE ==
[~2017-12-23] VITALS: Ht 167.6 cm; Wt 89.8 kg
[~2017-12-23 08:49] MED LIST: AMLO10TA4 PO; CLON0.1T PO; DOXA4TAB2 PO; LOSA1TAB25 PO; METO50TA6 PO; PANT40TA5 PO; POTA10TA12 PO; SIMV20TA3 PO
[2017-12-23] MEDS ORDERED: IV NORMAL SALINE 1000ML BAG 1,000 ML IV ONE (09:00)
[2017-12-23] MEDS ORDERED: DIPHTH,PERTUSS(ACELL),TET TOX 0.5 ML DISP.SYRIN. VAX IM ONE (09:00)
--- NOTE | 2017-12-23 09:05 | PHYS DOC ---
Past Medical History Past Medical History: High Cholesterol, Hypertension Past Surgical History: Other Additional Past Surgical Histo: EX LAPARATOMY 1970 FOLLOWING ASS[facility]ULT. Alcohol Use: Occasionally Drug Use: None Adult General Chief Complaint Chief Complaint: MECHANICAL FALL HPI HPI Patient is a 77 year old male brought in by embolus after what is sounds like probably either mechanical fall or syncope patient was trying to have a bowel movement he got up off the commode he said his legs got weak and he fell over hitting his face he does remember the event. He did drink alcohol last night he tells me . It is unclear if there was a complete loss of consciousness I have not yet talked to the family member that witnessed this. No neck pain no chest pain or shortness of breath he currently feels fine blood pressure for the medics was in the 80s initially but is come up into the low 100s. Patient has a history of frequent alcohol use. No recent illnesses no fever Review of Systems Review of Systems Constitutional: Denies fever or chills []reports generalized weakness Eyes: Denies change in visual acuity, redness, or eye pain [] HENT: Denies nasal congestion or sore throat [] Respiratory: Patient does report cough : Denies dysuria or hematuria [] Musculoskeletal: Denies back pain or joint pain [] Integument: Denies rash or skin lesions [] All other systems were reviewed and found to be within normal limits, except as documented in this note. Current Medications Current Medications Current Medications Medications (Trade) Dose Ordered Sig/Keith Start Time Stop Time Status Last Admin Dose Admin Diphtheria/ Tetanus/Acell Pertussis (Boostrix) 0.5 ml ONCE ONCE 12/23/17 09:00 12/23/17 09:01 DC Sodium Chloride 1,000 ml @ 1,000 mls/hr 1X ONCE 12/23/17 09:00 12/23/17 09:59 DC 12/23/17 09:39 1,000 MLS/HR Allergies Allergies Allergies Coded Allergies Type Severity Reaction Last Updated Verified No Known Drug Allergies 08/24/16 No Physical Exam Physical Exam Constitutional: Well developed, well nourished, no acute distress, non-toxic appearance. []Smells of alcohol HENT: Normocephalic there is a nonsuturable avulsion at the tip of the nose. No active bleeding Eyes: PERRLA, EOMI, conjunctiva normal, no discharge. [] Neck: Normal range of motion, no tenderness, supple, no stridor. [] Cardiovascular:Heart rate regular rhythm, no murmur [] Lungs & Thorax: Coarse breath sounds left lung base Abdomen: Bowel sounds normal, soft, no tenderness, no masses, no pulsatile masses. [] Skin: Warm, dry, no erythema, no rash. [] Extremities: No tenderness, no cyanosis, no clubbing, ROM intact, no edema. [] Neurologic: Alert and oriented X 3, normal motor function, normal sensory function, no focal deficits noted. [] Psychologic: Affect normal, judgement normal, mood normal. [] Current Patient Data Vital Signs Vital Signs Date Time Temp Pulse Resp B/P (MAP) Pulse Ox O2 Delivery O2 Flow Rate FiO2 12/23/17 09:30 63 16 95 12/23/17 09:00 97.6 97.6 12/23/17 08:57 113/65 (81) Room Air Lab Values Laboratory Tests Test 12/23/17 09:25 White Blood Count 4.1 x10^3/uL (4.0-11.0) Red Blood Count 3.70 x10^6/uL (4.30-5.70) L Hemoglobin 12.8 g/dL (13.0-17.5) L Hematocrit 38.2 % (39.0-53.0) L Mean Corpuscular Volume 103 fL (79-100) H Mean Corpuscular Hemoglobin 35 pg (25-35) Mean Corpuscular Hemoglobin Concent 34 g/dL (31-37) Red Cell Distribution Width 14.9 % (11.5-14.5) H Platelet Count 138 x10^3/uL (140-400) L Neutrophils (%) (Auto) 42 % (31-73) Lymphocytes (%) (Auto) 42 % (24-48) Monocytes (%) (Auto) 9 % (0-9) Eosinophils (%) (Auto) 6 % (0-3) H Basophils (%) (Auto) 1 % (0-3) Neutrophils # (Auto) 1.7 x10^3uL (1.8-7.7) L Lymphocytes # (Auto) 1.8 x10^3/uL (1.0-4.8) Monocytes # (Auto) 0.4 x10^3/uL (0.0-1.1) Eosinophils # (Auto) 0.2 x10^3/uL (0.0-0.7) Basophils # (Auto) 0.0 x10^3/uL (0.0-0.2) Prothrombin Time 13.4 SEC (11.7-14.0) Prothrombin Time INR 1.1 (0.8-1.1) Sodium Level 133 mmol/L (136-145) L Potassium Level 4.0 mmol/L (3.5-5.1) Chloride Level 99 mmol/L (98-107) Carbon Dioxide Level 23 mmol/L (21-32) Anion Gap 11 (6-14) Blood Urea Nitrogen 5 mg/dL (8-26) L Creatinine 0.8 mg/dL (0.7-1.3) Estimated GFR (Cockcroft-Gault) 113.7 BUN/Creatinine Ratio 6 (6-20) Glucose Level 99 mg/dL (70-99) Calcium Level 9.2 mg/dL (8.5-10.1) Total Bilirubin 0.7 mg/dL (0.2-1.0) Aspartate Amino Transferase (AST) 203 U/L (15-37) H Alanine Aminotransferase (ALT) 77 U/L (16-63) H Alkaline Phosphatase 71 U/L (46-116) Troponin I Quantitative < 0.017 ng/mL (0.000-0.055) Total Protein 7.7 g/dL (6.4-8.2) Albumin 2.9 g/dL (3.4-5.0) L Albumin/Globulin Ratio 0.6 (1.0-1.7) L Ethyl Alcohol Level 191 mg/dL (0-10) H Laboratory Tests 12/23/17 09:25 Laboratory Tests 12/23/17 09:25 EKG EKG [] Interpretation Time: Normal sinus rhythm rate of 66) bundle-branch block in light of that no obvious ischemia was identified interpreted by me the time of encounter Radiology/Procedures Radiology/Procedures [] Impressions: Impression: 1. No acute intracranial process. Please note that CT can be relatively insensitive to acute ischemic infarction for up to 24 hours after symptom onset. 2. Nonspecific white matter changes, probably from chronic microvascular ischemic disease. Electronically signed by: Oscar Bahena MD (12/23/2017 10:01 AM) [facility] Chest x-ray showed interstitial infiltrate Course & Med Decision Making Course & Med Decision Making Pertinent Labs and Imaging studies reviewed. 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 Final plan: Chest x-ray showed probable pneumonia patient has been coughing he is at high risk due to his alcoholism. He was weak with pressures in the 80s at home here his blood pressures in the 120s. Plan for blood cultures lactic acid as well as admission tracks and azithromycin will be given. Admitted to Dr. tod Galloway Disclaimer Laverne Disclaimer This electronic medical record was generated, in whole or in part, using a voice recognition dictation system. Departure Departure Impression: Primary Impression: Pneumonia Disposition: ADMITTED INPATIENT Admitting Physician: Marika Gilliland Condition: STABLE Referrals: JANAY MARTIN MD (PCP) ZENON JONES MD Dec 23, 2017 09:05
--- NOTE | 2017-12-23 09:33 | EKG ---
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
--- NOTE | 2017-12-23 09:36 | RAD ---
EXAM: CHEST 1 VIEW History: Shortness of breath COMPARISON: 08/24/2016 TECHNIQUE: Single portable radiograph of the chest FINDINGS: The cardiac silhouette is unremarkable. Bibasilar lung airspace opacities likely pneumonia or atelectasis. The costophrenic sulci are clear and well demarcated. IMPRESSION: Bibasilar lung airspace opacities likely atelectasis or infiltrates. Follow-up to resolution. Electronically signed by: Godwin Rosenberg MD (12/23/2017 9:33 AM) [id number]
[2017-12-23 09:41] LABS: BASO % 1 % (0-3); EOS # 0.2 x10^3/uL (0.0-0.7); EOS % 6 % (0-3); HEMATOCRIT 38.2 % (39.0-53.0); HEMOGLOBIN 12.8 g/dL (13.0-17.5); LYMPH # 1.8 x10^3/uL (1.0-4.8); LYMPH % 42 % (24-48); MEAN CORPUSCULAR HEMOGLOBIN 35 pg (25-35); MEAN CORPUSCULAR HGB CONC 34 g/dL (31-37); MEAN CORPUSCULAR VOLUME 103 fL (79-100); MONO # 0.4 x10^3/uL (0.0-1.1); MONO % 9 % (0-9); NEUT # 1.7 x10^3uL (1.8-7.7); NEUT % 42 % (31-73); PLATELET COUNT 138 x10^3/uL (140-400); RED CELL DISTRIBUTION WIDTH 14.9 % (11.5-14.5); WHITE BLOOD COUNT 4.1 x10^3/uL (4.0-11.0)
[2017-12-23 09:51] LABS: CALCIUM 9.2 mg/dL (8.5-10.1); CREATININE 0.8 mg/dL (0.7-1.3); GFR 113.7
[2017-12-23 09:57] LABS: ALBUMIN 2.9 g/dL (3.4-5.0); ALBUMIN/GLOBULIN RATIO 0.6 (1.0-1.7); TOTAL BILIRUBIN 0.7 mg/dL (0.2-1.0); TOTAL PROTEIN 7.7 g/dL (6.4-8.2)
[2017-12-23 09:59] LABS: PROTHROMBIN TIME PATIENT 13.4 SEC (11.7-14.0)
--- NOTE | 2017-12-23 10:04 | RAD ---
CT head without intravenous contrast History: Trauma, syncope. Comparison: CT head August 24, 2016. Technique: Axial images are obtained of the head from the skull base through the vertex without IV contrast. Exposure: One or more of the following individualized dose reduction techniques were utilized for this examination: 1. Automated exposure control 2. Adjustment of the mA and/or kV according to patient size 3. Use of iterative reconstruction technique Findings: The ventricles are appropriate in size, shape, and location for the patient's age. No obvious intracranial mass, mass-effect, midline shift, hemorrhage or obvious acute infarction is identified. Basilar cisterns are patent. Patchy, nonspecific white matter low-attenuation is seen, probably from chronic microvascular ischemic disease. Bone windows demonstrate no acute calvarial abnormality. Left maxillary sinus appears small, may represent changes of chronic sinusitis. Impression: 1. No acute intracranial process. Please note that CT can be relatively insensitive to acute ischemic infarction for up to 24 hours after symptom onset. 2. Nonspecific white matter changes, probably from chronic microvascular ischemic disease. Electronically signed by: Oscar Bahena MD (12/23/2017 10:01 AM) [facility]
[2017-12-23] MEDS ORDERED: AZITHRMYCN 500MG IVPB FOR OMNI 250 ML IV ONE (10:15)
[2017-12-23] MEDS ORDERED: AZITHROMYCIN 500 MG in IV NORMAL SALINE 250ML 250 ML IV ONE (12:30)
[2017-12-23] MEDS: IV NORMAL SALINE 1000ML BAG 1,000 ML IV SCH (13:12)
[2017-12-23] MEDS ORDERED: ONDANSETRON PF 4 MG/2 ML VIAL. IV PRN (14:15)
[2017-12-23 15:00] VITALS: BP 114/63
--- NOTE | 2017-12-23 15:28 | PDOC1 ---
History and Physical Date of Admission Date of Admission DATE: 12/23/17 TIME: 15:21 Identification/Chief Complaint Chief Complaint sycope, nausea and vomiting Source Source: Chart review, Patient History of Present Illness History of Present Illness Mr. Ho is a 77 year old male admit s/p a or syncope. In the bathroom with effort, then when standing, his legs got weak and hel fell. he does not report LOS feels better now, complains of leg weakness, he had relative low BP in the field SBP in 80's and he takes mult htn meds . No recent illnesses no fever Past Medical History Cardiovascular: HTN Psych: Addictions Family History Family History: Family History Unknown Social History Smoke: Quit (1 year ago) ALCOHOL: heavy Drugs: None Current Problem List Problem List Problems Medical Problems: (1) Pneumonia Status: Acute Current Medications Current Medications Current Medications Sodium Chloride 1,000 ml @ 1,000 mls/hr 1X ONCE IV Last administered on at 09:39; Start 12/23/17 at 09:00; Stop 12/23/17 at 09:59; Status DC Diphtheria/ Tetanus/Acell Pertussis (Boostrix) 0.5 ml ONCE ONCE VAX IM Last administered on 12/23/17at 10:12; Start 12/23/17 at 09:00; Stop 12/23/17 at 09:01 ; Status DC Sodium Chloride 1,000 ml @ 75 mls/hr [id number] IV Last administered on at 13:12; Start 12/23/17 at 10:05; Stop 12/24/17 at 10:04 Ceftriaxone Sodium 50 ml @ 100 mls/hr 1X ONCE IV Last administered on at 10:57; Start 12/23/17 at 10:15; Stop 12/23/17 at 10:44; Status DC Azithromycin 250 ml @ 250 mls/hr 1X ONCE IV ; Start 12/23/17 at 10:15; Stop at 11:14; Status Cancel Azithromycin 500 mg/Sodium Chloride 250 ml @ 250 mls/hr 1X ONCE IV Last administered on 12/23/17at 13:12; Start 12/23/17 at 12:30; Stop 12/23/17 at 13:29 ; Status DC Ondansetron HCl (Zofran) 4 mg PRN Q6HRS PRN IV NAUSEA/VOMITING Last administered on 12/23/17at 14:40; Start 12/23/17 at 14:15 Active Scripts Active Clonidine Hcl 0.1 Mg Tablet 0.1 Mg PO TID 60 Days Norvasc (Amlodipine Besylate) 10 Mg Tablet 10 Mg PO DAILY 60 Days Reported Losartan-Hctz 100-12.5 Mg Tab (Losartan/Hydrochlorothiazide) 1 Each Tablet 1 Tab PO DAILY Metoprolol Tartrate 50 Mg Tablet 1 Tab PO BID Pantoprazole Sodium 40 Mg Tablet.dr 1 Tab PO DAILY Simvastatin 20 Mg Tablet 1 Tab PO QHS Potassium Chloride 10 Meq Capsule.er 10 Meq PO DAILY Cardura (Doxazosin Mesylate) 4 Mg Tablet 1 Tab PO DAILY Allergies Allergies: Coded Allergies: No Known Drug Allergies (Unverified , 08/24/16) ROS General: YES: Chills, Fatigue Eyes: No Blurry vision, No Decreased vision, No Double vision, No Dry eyes, No Excessive tearing, No Eye Pain, No Itchy Eyes, No Loss of vision, No Photophobia , No Scotomata, No Uses contacts, No Uses glasses, No Other HEENT: No: Heacaches, Visual Changes, Hearing change, Nasal congestion, Nasal discharge, Oral lesions, Sinus pain, Sore Throat, Epistaxis, Sneezing, Snoring, Tinnitus, Vertigo, Vocal changes, Other Respiratory: YES: Cough, SOB with excertion; No: Hemoptysis, Orthopnea, Pleuritic Pain, Shortness of breath, Sputum Changes, Stridor, Tachypnea, Wheezing, Other Cardiovascular: No Chest Pain, No Palpitations, No Orthopnea, No Paroxysmal Noc. Dyspnea, No Edema, No Lt Headedness, No Other Gastrointestinal: No Nausea, No Vomiting, No Abdominal Pain, No Diarrhea, No Constipation, No Melena, No Hematochezia, No Other Musculoskeletal: Yes Gait Disturbance, Yes Muscular Weakness (legs) Neurological: No Behavorial Changes, No Bowel/Bladder ControlChng, No Confusion , No Dizziness, No Headaches, No Impaired Coord/balance, No Memory Loss, No Numbness/Tingling, No Seizures, No Speech Problems, No Tremors, No Visual Changes, No Weakness, No Other Skin: No Dry Skin, No Eczema, No Hair Changes, No Lumps, No Mole Changes, No Mottling, No Nail Changes, No Pruritus, No Rash, No Skin Lesion Changes, No Other, No Acne Physical Exam General: Alert, Cooperative, mild distress HEENT: Atraumatic, EOMI, Mucous membr. moist/pink Lungs: Clear to auscultation, Normal air movement Heart: S1S2, RRR, no gallops, no murmurs Abdomen: Normal bowel sounds, Soft Rectal Exam: not examined Extremities: No cyanosis, Normal pulses Skin: No rashes, No significant lesion Neuro: Normal speech, Sensation intact, Cranial nerves 3-12 NL Psych/Mental Status: Mental status NL, Mood NL Vitals Vitals Vital Signs Date Time Temp Pulse Resp B/P (MAP) Pulse Ox O2 Delivery O2 Flow Rate FiO2 12/23/17 11:30 76 18 97 12/23/17 09:00 97.6 97.6 12/23/17 08:57 113/65 (81) Room Air Labs Labs Laboratory Tests Test 12/23/17 09:25 12/23/17 10:40 12/23/17 14:38 White Blood Count 4.1 x10^3/uL (4.0-11.0) Red Blood Count 3.70 x10^6/uL (4.30-5.70) Hemoglobin 12.8 g/dL (13.0-17.5) Hematocrit 38.2 % (39.0-53.0) Mean Corpuscular Volume 103 fL (79-100) Mean Corpuscular Hemoglobin 35 pg (25-35) Mean Corpuscular Hemoglobin Concent 34 g/dL (31-37) Red Cell Distribution Width 14.9 % (11.5-14.5) Platelet Count 138 x10^3/uL (140-400) Neutrophils (%) (Auto) 42 % (31-73) Lymphocytes (%) (Auto) 42 % (24-48) Monocytes (%) (Auto) 9 % (0-9) Eosinophils (%) (Auto) 6 % (0-3) Basophils (%) (Auto) 1 % (0-3) Neutrophils # (Auto) 1.7 x10^3uL (1.8-7.7) Lymphocytes # (Auto) 1.8 x10^3/uL (1.0-4.8) Monocytes # (Auto) 0.4 x10^3/uL (0.0-1.1) Eosinophils # (Auto) 0.2 x10^3/uL (0.0-0.7) Basophils # (Auto) 0.0 x10^3/uL (0.0-0.2) Prothrombin Time 13.4 SEC (11.7-14.0) Prothromb Time International Ratio 1.1 (0.8-1.1) Sodium Level 133 mmol/L (136-145) Potassium Level 4.0 mmol/L (3.5-5.1) Chloride Level 99 mmol/L (98-107) Carbon Dioxide Level 23 mmol/L (21-32) Anion Gap 11 (6-14) Blood Urea Nitrogen 5 mg/dL (8-26) Creatinine 0.8 mg/dL (0.7-1.3) Estimated GFR (Cockcroft-Gault) 113.7 BUN/Creatinine Ratio 6 (6-20) Glucose Level 99 mg/dL (70-99) Calcium Level 9.2 mg/dL (8.5-10.1) Total Bilirubin 0.7 mg/dL (0.2-1.0) Aspartate Amino Transf (AST/SGOT) 203 U/L (15-37) Alanine Aminotransferase (ALT/SGPT) 77 U/L (16-63) Alkaline Phosphatase 71 U/L (46-116) Troponin I Quantitative < 0.017 ng/mL (0.000-0.055) XB-Dbf-N-Type Natriuretic Peptide 94 pg/mL (0-449) Total Protein 7.7 g/dL (6.4-8.2) Albumin 2.9 g/dL (3.4-5.0) Albumin/Globulin Ratio 0.6 (1.0-1.7) Ethyl Alcohol Level 191 mg/dL (0-10) Lactic Acid Level 2.6 mmol/L (0.4-2.0) 2.6 mmol/L (0.4-2.0) Laboratory Tests Test 12/23/17 09:25 12/23/17 10:40 12/23/17 14:38 White Blood Count 4.1 x10^3/uL (4.0-11.0) Red Blood Count 3.70 x10^6/uL (4.30-5.70) Hemoglobin 12.8 g/dL (13.0-17.5) Hematocrit 38.2 % (39.0-53.0) Mean Corpuscular Volume 103 fL (79-100) Mean Corpuscular Hemoglobin 35 pg (25-35) Mean Corpuscular Hemoglobin Concent 34 g/dL (31-37) Red Cell Distribution Width 14.9 % (11.5-14.5) Platelet Count 138 x10^3/uL (140-400) Neutrophils (%) (Auto) 42 % (31-73) Lymphocytes (%) (Auto) 42 % (24-48) Monocytes (%) (Auto) 9 % (0-9) Eosinophils (%) (Auto) 6 % (0-3) Basophils (%) (Auto) 1 % (0-3) Neutrophils # (Auto) 1.7 x10^3uL (1.8-7.7) Lymphocytes # (Auto) 1.8 x10^3/uL (1.0-4.8) Monocytes # (Auto) 0.4 x10^3/uL (0.0-1.1) Eosinophils # (Auto) 0.2 x10^3/uL (0.0-0.7) Basophils # (Auto) 0.0 x10^3/uL (0.0-0.2) Prothrombin Time 13.4 SEC (11.7-14.0) Prothromb Time International Ratio 1.1 (0.8-1.1) Sodium Level 133 mmol/L (136-145) Potassium Level 4.0 mmol/L (3.5-5.1) Chloride Level 99 mmol/L (98-107) Carbon Dioxide Level 23 mmol/L (21-32) Anion Gap 11 (6-14) Blood Urea Nitrogen 5 mg/dL (8-26) Creatinine 0.8 mg/dL (0.7-1.3) Estimated GFR (Cockcroft-Gault) 113.7 BUN/Creatinine Ratio 6 (6-20) Glucose Level 99 mg/dL (70-99) Calcium Level 9.2 mg/dL (8.5-10.1) Total Bilirubin 0.7 mg/dL (0.2-1.0) Aspartate Amino Transf (AST/SGOT) 203 U/L (15-37) Alanine Aminotransferase (ALT/SGPT) 77 U/L (16-63) Alkaline Phosphatase 71 U/L (46-116) Troponin I Quantitative < 0.017 ng/mL (0.000-0.055) TJ-Omt-Y-Type Natriuretic Peptide 94 pg/mL (0-449) Total Protein 7.7 g/dL (6.4-8.2) Albumin 2.9 g/dL (3.4-5.0) Albumin/Globulin Ratio 0.6 (1.0-1.7) Ethyl Alcohol Level 191 mg/dL (0-10) Lactic Acid Level 2.6 mmol/L (0.4-2.0) 2.6 mmol/L (0.4-2.0) VTE Prophylaxis Ordered VTE Prophylaxis Devices: No VTE Pharmacological Prophylaxi: Yes Assessment/Plan Assessment/Plan acute EtOH intoxication at 0900 AM. he tells me he only has 2 normal size drinks daily nausea and vomiting, symptom control, ativan sched and PRN fro EtOH syncope at home, likely vagal, but also intoxicated CXR showed some hazyiness that may be atelectasis, IV abx started in ER, will give nebs, cont, may be able to wean treating pneumonia leg weakess and poorly ambulatory, PT and OT and physiatry consult hx of Htn with likely chronic diastolic CHF relative hypotension, hold the TOREY Klein MD Dec 23, 2017 15:28
[2017-12-23] MEDS ORDERED: MULTIVIT INFUSN,ADULT 4,VIT K 10 ML, THIAMINE 100 MG, FOLIC ACID 1 MG in IV NORMAL SALI... IV ONE (16:00)
[2017-12-23] MEDS: IPRATRPIUM/ALBUTEROL 0.5/2.5MG 3 ML NEBU. NEB SCH ×2 (16:39→18:28)
[2017-12-23] MEDS: ENOXAPARIN 40 MG/0.4 ML SYRINGE. SQ SCH (16:56)
[2017-12-23] MEDS: PANTOPRAZOLE 40 MG TABLET.DR. PO SCH (16:56)
[2017-12-23] MEDS: LOSARTAN POTASSIUM 50 MG TABLET. PO SCH (16:58)
[2017-12-23] MEDS: hydroCHLOROthiazide 12.5 MG CAPSULE PO SCH (16:58)
[2017-12-23] MEDS: DOXAZOSIN MESYLATE 4 MG TABLET. PO SCH (16:59)
[2017-12-23] MEDS: cloNIDine HCL 0.1 MG TABLET PO SCH ×2 (16:59→20:53)
[2017-12-23 19:00] VITALS: BP_SYST 110; BP_SYST 80; BP_DIAS 47; BP_DIAS 64
[2017-12-23] MEDS: SIMVASTATIN 20 MG TABLET PO SCH (20:53)
[2017-12-23] MEDS: LORazepam 0.5 MG TABLET PO SCH (20:53)
[2017-12-23] MEDS: METOPROLOL TART IMMED RELEASE 50 MG TABLET. PO SCH (20:53)
[2017-12-23 23:00] VITALS: BP 94/59
[2017-12-23 23:51] LABS: BILIRUBIN,URINE NEGATIVE (NEG); CLARITY,URINE CLEAR; COLOR,URINE AMBER; NITRITE,URINE NEGATIVE (NEG); PH,URINE 5.5; PROTEIN,URINE NEGATIVE (NEG-TRACE)
[2017-12-24 00:01] LABS: BACTERIA,URINE 0 /HPF (0-FEW); HYALINE CASTS, URINE FEW /HPF; RBC,URINE OCC /HPF (0-2); SQUAMOUS EPITHELIAL CELL,UR OCC /LPF
--- NOTE | 2017-12-24 01:28 | CONS ---
DATE OF CONSULTATION: 12/23/2017 ATTENDING PHYSICIAN: Dr. Gilliland. The patient was seen at the request of Dr. Gilliland for rehab evaluation. 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 The patient was admitted to the Emergency Room this afternoon after he had a syncopal episode in the bathroom. With effort then when standing, his legs got weak and he fell. He does not report any loss of consciousness. The patient complains of lower extremity weakness and he is scared of falling down when up. He was noted on the field with low blood pressure in the 80s. He has been taking multiple hypertension medications. The patient with known hypertension, chronic ethanol use, takes about 1/2 pint between himself and his girlfriend on a daily basis. The patient is not known allergic to any medication. He quit smoking about a year ago. The patient had chest x-ray done, which revealed bibasilar lung airspace opacities, likely atelectasis or infiltrates. CT scan of the brain failed to reveal any acute lesion. The patient usually gets up and walks without any assistive devices. He got a walker in the last couple of days. He had 2 steps to enter the house. The patient denies any back pain or lower extremity pain or numbness in the extremities. He denies any trouble with his bowel or bladder control or swallowing. He does not have much appetite right now. PHYSICAL EXAMINATION: Today revealed an elderly male. He is alert, oriented to time, place, person and circumstance and follows commands appropriately, moves all 4 extremities voluntarily where he had 4+/5 grade muscle strength and deep tendon reflexes are decreased overall with absent ankle jerks. He had equal perception of touch and pinprick sensation bilaterally. He had crepitus on range of motion of both knee joints without any obvious knee joint effusion, and he had pain free range of motion on both hip joints. Blood pressure while supine is 80/55 mmHg. He requires some help with bed mobility and transfers, and he made a few steps at bedside using a roller walker, but he is scared of falling while up. His skin is intact at this time. No obvious visual field cut or facial asymmetry noted. ASSESSMENT: An elderly male with known hypertension and also chronic ethanol abuse, clinical evidence of peripheral neuropathy, degenerative joint disease of both knees with recent fainting episode, most probably from hypotension. RECOMMENDATIONS: To get him up as tolerated, to hold off his blood pressure medication until his orthostasis goes away. Dr. Gilliland, I appreciate asking me to participate in the care of this interesting patient. I will be glad to follow him with you as needed for his rehabilitation. QUEENIE RIVAS MD DR: MARCELO/ta JOB#: [id number] / [id number]
[2017-12-24 03:00] VITALS: BP 116/63
[2017-12-24] MEDS: IV NORMAL SALINE 1000ML BAG 1,000 ML IV SCH (03:04)
[2017-12-24 06:12] LABS: BASO % 1 % (0-3); EOS % 0 % (0-3); HEMATOCRIT 30.8 % (39.0-53.0); HEMOGLOBIN 10.4 g/dL (13.0-17.5); LYMPH # 1.9 x10^3/uL (1.0-4.8); LYMPH % 43 % (24-48); MEAN CORPUSCULAR HEMOGLOBIN 35 pg (25-35); MEAN CORPUSCULAR HGB CONC 34 g/dL (31-37); MEAN CORPUSCULAR VOLUME 104 fL (79-100); MONO # 0.5 x10^3/uL (0.0-1.1); MONO % 12 % (0-9); NEUT % 44 % (31-73); PLATELET COUNT 110 x10^3/uL (140-400); RED BLOOD COUNT 2.95 x10^6/uL (4.30-5.70); RED CELL DISTRIBUTION WIDTH 15.1 % (11.5-14.5); WHITE BLOOD COUNT 4.5 x10^3/uL (4.0-11.0)
[2017-12-24 06:31] LABS: ALBUMIN 2.3 g/dL (3.4-5.0); ALBUMIN/GLOBULIN RATIO 0.6 (1.0-1.7); CALCIUM 8.4 mg/dL (8.5-10.1); CREATININE 0.8 mg/dL (0.7-1.3); GFR 113.7; POTASSIUM 3.8 mmol/L (3.5-5.1); TOTAL BILIRUBIN 0.6 mg/dL (0.2-1.0)
[2017-12-24] MEDS: IPRATRPIUM/ALBUTEROL 0.5/2.5MG 3 ML NEBU. NEB SCH ×4 (06:58→19:43)
[2017-12-24 07:00] VITALS: BP 114/66
[2017-12-24] MEDS ORDERED: NON FORMULARY ITEM (Losartan/Hydrochlorothiazide (Losartan-Hctz 100-12.5 Mg Tab) 1 TAB) PO SCH (09:00)
[2017-12-24] MEDS: cloNIDine HCL 0.1 MG TABLET PO SCH ×3 (09:00→22:41)
[2017-12-24] MEDS: METOPROLOL TART IMMED RELEASE 50 MG TABLET. PO SCH ×2 (09:00→22:41)
[2017-12-24] MEDS: hydroCHLOROthiazide 12.5 MG CAPSULE PO SCH (09:00)
[2017-12-24] MEDS: LOSARTAN POTASSIUM 50 MG TABLET. PO SCH (09:00)
[2017-12-24] MEDS: DOXAZOSIN MESYLATE 4 MG TABLET. PO SCH (09:00)
[2017-12-24] MEDS ORDERED: AZITHROMYCIN 250 MG TABLET. PO SCH (09:00)
--- NOTE | 2017-12-24 09:03 | PDOC ---
PROGRESS NOTES Subjective Subjective He feels better this AM. Objective Objective Vital Signs Date Time Temp Pulse Resp B/P (MAP) Pulse Ox O2 Delivery O2 Flow Rate FiO2 12/24/17 07:00 97.7 84 20 114/66 (82) 92 Room Air 97.7 Intake and Output 12/24/17 07:00 Intake Total 1300 ml Output Total 625 ml Balance 675 ml Intake IV Total 1300 ml Output Urine Total 625 ml # Voids 1 Physical Exam Physical Exam He is alert and sitting in bed and eating breakfast and BP 114/80 mmHg. supine and sitting without any dizziness. He moves all 4 extremities actively. Assessment Assessment Problems Medical Problems: (1) Pneumonia Status: Acute Plan Plan of Care To get him up with monitoring of his BP for orthostasis and to slowly resume his antihypertensive medicines as needed and physical therapy and occupational therapy to work on his mobility and self care and home when medically stable. Comment Review of Relevant I have reviewed the following items azeb (where applicable) has been applied. Labs Laboratory Tests Test 12/23/17 09:25 12/23/17 10:40 12/23/17 14:38 12/23/17 23:30 White Blood Count 4.1 x10^3/uL (4.0-11.0) Red Blood Count 3.70 x10^6/uL (4.30-5.70) Hemoglobin 12.8 g/dL (13.0-17.5) Hematocrit 38.2 % (39.0-53.0) Mean Corpuscular Volume 103 fL (79-100) Mean Corpuscular Hemoglobin 35 pg (25-35) Mean Corpuscular Hemoglobin Concent 34 g/dL (31-37) Red Cell Distribution Width 14.9 % (11.5-14.5) Platelet Count 138 x10^3/uL (140-400) Neutrophils (%) (Auto) 42 % (31-73) Lymphocytes (%) (Auto) 42 % (24-48) Monocytes (%) (Auto) 9 % (0-9) Eosinophils (%) (Auto) 6 % (0-3) Basophils (%) (Auto) 1 % (0-3) Neutrophils # (Auto) 1.7 x10^3uL (1.8-7.7) Lymphocytes # (Auto) 1.8 x10^3/uL (1.0-4.8) Monocytes # (Auto) 0.4 x10^3/uL (0.0-1.1) Eosinophils # (Auto) 0.2 x10^3/uL (0.0-0.7) Basophils # (Auto) 0.0 x10^3/uL (0.0-0.2) Prothrombin Time 13.4 SEC (11.7-14.0) Prothromb Time International Ratio 1.1 (0.8-1.1) Sodium Level 133 mmol/L (136-145) Potassium Level 4.0 mmol/L (3.5-5.1) Chloride Level 99 mmol/L (98-107) Carbon Dioxide Level 23 mmol/L (21-32) Anion Gap 11 (6-14) Blood Urea Nitrogen 5 mg/dL (8-26) Creatinine 0.8 mg/dL (0.7-1.3) Estimated GFR (Cockcroft-Gault) 113.7 BUN/Creatinine Ratio 6 (6-20) Glucose Level 99 mg/dL (70-99) Calcium Level 9.2 mg/dL (8.5-10.1) Total Bilirubin 0.7 mg/dL (0.2-1.0) Aspartate Amino Transf (AST/SGOT) 203 U/L (15-37) Alanine Aminotransferase (ALT/SGPT) 77 U/L (16-63) Alkaline Phosphatase 71 U/L (46-116) Troponin I Quantitative < 0.017 ng/mL (0.000-0.055) LZ-Gam-Q-Type Natriuretic Peptide 94 pg/mL (0-449) Total Protein 7.7 g/dL (6.4-8.2) Albumin 2.9 g/dL (3.4-5.0) Albumin/Globulin Ratio 0.6 (1.0-1.7) Ethyl Alcohol Level 191 mg/dL (0-10) Lactic Acid Level 2.6 mmol/L (0.4-2.0) 2.6 mmol/L (0.4-2.0) Urine Collection Type Unknown Urine Color Jazzy Urine Clarity Clear Urine pH 5.5 Urine Specific [place] 1.015 Urine Protein Negative mg/dL (NEG-TRACE) Urine Glucose (UA) Negative mg/dL (NEG) Urine Ketones (Stick) 40 mg/dL (NEG) Urine Blood Negative (NEG) Urine Nitrite Negative (NEG) Urine Bilirubin Negative (NEG) Urine Urobilinogen Dipstick 1.0 mg/dL (0.2 mg/dL) Urine Leukocyte Esterase Small (NEG) Urine RBC Occ /HPF (0-2) Urine WBC 11-20 /HPF (0-4) Urine Squamous Epithelial Cells Occ /LPF Urine Bacteria 0 /HPF (0-FEW) Urine Hyaline Casts Few /HPF Urine Mucus Mod /LPF Test 12/24/17 06:00 White Blood Count 4.5 x10^3/uL (4.0-11.0) Red Blood Count 2.95 x10^6/uL (4.30-5.70) Hemoglobin 10.4 g/dL (13.0-17.5) Hematocrit 30.8 % (39.0-53.0) Mean Corpuscular Volume 104 fL (79-100) Mean Corpuscular Hemoglobin 35 pg (25-35) Mean Corpuscular Hemoglobin Concent 34 g/dL (31-37) Red Cell Distribution Width 15.1 % (11.5-14.5) Platelet Count 110 x10^3/uL (140-400) Neutrophils (%) (Auto) 44 % (31-73) Lymphocytes (%) (Auto) 43 % (24-48) Monocytes (%) (Auto) 12 % (0-9) Eosinophils (%) (Auto) 0 % (0-3) Basophils (%) (Auto) 1 % (0-3) Neutrophils # (Auto) 2.0 x10^3uL (1.8-7.7) Lymphocytes # (Auto) 1.9 x10^3/uL (1.0-4.8) Monocytes # (Auto) 0.5 x10^3/uL (0.0-1.1) Eosinophils # (Auto) 0.0 x10^3/uL (0.0-0.7) Basophils # (Auto) 0.0 x10^3/uL (0.0-0.2) Sodium Level 135 mmol/L (136-145) Potassium Level 3.8 mmol/L (3.5-5.1) Chloride Level 103 mmol/L (98-107) Carbon Dioxide Level 21 mmol/L (21-32) Anion Gap 11 (6-14) Blood Urea Nitrogen 6 mg/dL (8-26) Creatinine 0.8 mg/dL (0.7-1.3) Estimated GFR (Cockcroft-Gault) 113.7 BUN/Creatinine Ratio 8 (6-20) Glucose Level 89 mg/dL (70-99) Calcium Level 8.4 mg/dL (8.5-10.1) Total Bilirubin 0.6 mg/dL (0.2-1.0) Aspartate Amino Transf (AST/SGOT) 128 U/L (15-37) Alanine Aminotransferase (ALT/SGPT) 57 U/L (16-63) Alkaline Phosphatase 55 U/L (46-116) Total Protein 6.0 g/dL (6.4-8.2) Albumin 2.3 g/dL (3.4-5.0) Albumin/Globulin Ratio 0.6 (1.0-1.7) Laboratory Tests Test 12/23/17 09:25 12/23/17 10:40 12/23/17 14:38 12/23/17 23:30 White Blood Count 4.1 x10^3/uL (4.0-11.0) Red Blood Count 3.70 x10^6/uL (4.30-5.70) Hemoglobin 12.8 g/dL (13.0-17.5) Hematocrit 38.2 % (39.0-53.0) Mean Corpuscular Volume 103 fL (79-100) Mean Corpuscular Hemoglobin 35 pg (25-35) Mean Corpuscular Hemoglobin Concent 34 g/dL (31-37) Red Cell Distribution Width 14.9 % (11.5-14.5) Platelet Count 138 x10^3/uL (140-400) Neutrophils (%) (Auto) 42 % (31-73) Lymphocytes (%) (Auto) 42 % (24-48) Monocytes (%) (Auto) 9 % (0-9) Eosinophils (%) (Auto) 6 % (0-3) Basophils (%) (Auto) 1 % (0-3) Neutrophils # (Auto) 1.7 x10^3uL (1.8-7.7) Lymphocytes # (Auto) 1.8 x10^3/uL (1.0-4.8) Monocytes # (Auto) 0.4 x10^3/uL (0.0-1.1) Eosinophils # (Auto) 0.2 x10^3/uL (0.0-0.7) Basophils # (Auto) 0.0 x10^3/uL (0.0-0.2) Prothrombin Time 13.4 SEC (11.7-14.0) Prothromb Time International Ratio 1.1 (0.8-1.1) Sodium Level 133 mmol/L (136-145) Potassium Level 4.0 mmol/L (3.5-5.1) Chloride Level 99 mmol/L (98-107) Carbon Dioxide Level 23 mmol/L (21-32) Anion Gap 11 (6-14) Blood Urea Nitrogen 5 mg/dL (8-26) Creatinine 0.8 mg/dL (0.7-1.3) Estimated GFR (Cockcroft-Gault) 113.7 BUN/Creatinine Ratio 6 (6-20) Glucose Level 99 mg/dL (70-99) Calcium Level 9.2 mg/dL (8.5-10.1) Total Bilirubin 0.7 mg/dL (0.2-1.0) Aspartate Amino Transf (AST/SGOT) 203 U/L (15-37) Alanine Aminotransferase (ALT/SGPT) 77 U/L (16-63) Alkaline Phosphatase 71 U/L (46-116) Troponin I Quantitative < 0.017 ng/mL (0.000-0.055) II-Cka-C-Type Natriuretic Peptide 94 pg/mL (0-449) Total Protein 7.7 g/dL (6.4-8.2) Albumin 2.9 g/dL (3.4-5.0) Albumin/Globulin Ratio 0.6 (1.0-1.7) Ethyl Alcohol Level 191 mg/dL (0-10) Lactic Acid Level 2.6 mmol/L (0.4-2.0) 2.6 mmol/L (0.4-2.0) Urine Collection Type Unknown Urine Color Jazzy Urine Clarity Clear Urine pH 5.5 Urine Specific [place] 1.015 Urine Protein Negative mg/dL (NEG-TRACE) Urine Glucose (UA) Negative mg/dL (NEG) Urine Ketones (Stick) 40 mg/dL (NEG) Urine Blood Negative (NEG) Urine Nitrite Negative (NEG) Urine Bilirubin Negative (NEG) Urine Urobilinogen Dipstick 1.0 mg/dL (0.2 mg/dL) Urine Leukocyte Esterase Small (NEG) Urine RBC Occ /HPF (0-2) Urine WBC 11-20 /HPF (0-4) Urine Squamous Epithelial Cells Occ /LPF Urine Bacteria 0 /HPF (0-FEW) Urine Hyaline Casts Few /HPF Urine Mucus Mod /LPF Test 12/24/17 06:00 White Blood Count 4.5 x10^3/uL (4.0-11.0) Red Blood Count 2.95 x10^6/uL (4.30-5.70) Hemoglobin 10.4 g/dL (13.0-17.5) Hematocrit 30.8 % (39.0-53.0) Mean Corpuscular Volume 104 fL (79-100) Mean Corpuscular Hemoglobin 35 pg (25-35) Mean Corpuscular Hemoglobin Concent 34 g/dL (31-37) Red Cell Distribution Width 15.1 % (11.5-14.5) Platelet Count 110 x10^3/uL (140-400) Neutrophils (%) (Auto) 44 % (31-73) Lymphocytes (%) (Auto) 43 % (24-48) Monocytes (%) (Auto) 12 % (0-9) Eosinophils (%) (Auto) 0 % (0-3) Basophils (%) (Auto) 1 % (0-3) Neutrophils # (Auto) 2.0 x10^3uL (1.8-7.7) Lymphocytes # (Auto) 1.9 x10^3/uL (1.0-4.8) Monocytes # (Auto) 0.5 x10^3/uL (0.0-1.1) Eosinophils # (Auto) 0.0 x10^3/uL (0.0-0.7) Basophils # (Auto) 0.0 x10^3/uL (0.0-0.2) Sodium Level 135 mmol/L (136-145) Potassium Level 3.8 mmol/L (3.5-5.1) Chloride Level 103 mmol/L (98-107) Carbon Dioxide Level 21 mmol/L (21-32) Anion Gap 11 (6-14) Blood Urea Nitrogen 6 mg/dL (8-26) Creatinine 0.8 mg/dL (0.7-1.3) Estimated GFR (Cockcroft-Gault) 113.7 BUN/Creatinine Ratio 8 (6-20) Glucose Level 89 mg/dL (70-99) Calcium Level 8.4 mg/dL (8.5-10.1) Total Bilirubin 0.6 mg/dL (0.2-1.0) Aspartate Amino Transf (AST/SGOT) 128 U/L (15-37) Alanine Aminotransferase (ALT/SGPT) 57 U/L (16-63) Alkaline Phosphatase 55 U/L (46-116) Total Protein 6.0 g/dL (6.4-8.2) Albumin 2.3 g/dL (3.4-5.0) Albumin/Globulin Ratio 0.6 (1.0-1.7) Medications Current Medications Sodium Chloride 1,000 ml @ 1,000 mls/hr 1X ONCE IV Last administered on at 09:39; Start 12/23/17 at 09:00; Stop 12/23/17 at 09:59; Status DC Diphtheria/ Tetanus/Acell Pertussis (Boostrix) 0.5 ml ONCE ONCE VAX IM Last administered on 12/23/17at 10:12; Start 12/23/17 at 09:00; Stop 12/23/17 at 09:01 ; Status DC Sodium Chloride 1,000 ml @ 75 mls/hr [id number] IV Last administered on at 03:04; Start 12/23/17 at 10:05; Stop 12/24/17 at 10:04 Ceftriaxone Sodium 50 ml @ 100 mls/hr 1X ONCE IV Last administered on at 10:57; Start 12/23/17 at 10:15; Stop 12/23/17 at 10:44; Status DC Azithromycin 250 ml @ 250 mls/hr 1X ONCE IV ; Start 12/23/17 at 10:15; Stop at 11:14; Status Cancel Azithromycin 500 mg/Sodium Chloride 250 ml @ 250 mls/hr 1X ONCE IV Last administered on 12/23/17at 13:12; Start 12/23/17 at 12:30; Stop 12/23/17 at 13:29 ; Status DC Ondansetron HCl (Zofran) 4 mg PRN Q6HRS PRN IV NAUSEA/VOMITING Last administered on 12/23/17at 14:40; Start 12/23/17 at 14:15 Ceftriaxone Sodium 1 gm/ Dextrose 50 ml @ 100 mls/hr Q24H IV ; Start 12/23/17 at 15:15; Status UNV Azithromycin (Zithromax) 250 mg DAILY PO ; Start 12/24/17 at 09:00 Albuterol/ Ipratropium (Duoneb) 3 ml RTQID NEB Last administered on 12/24/17at 06:58; Start 12/23/17 at 16:00 Clonidine HCl (Catapres) 0.1 mg TID PO Last administered on 12/23/17at 20:53; Start 12/23/17 at 16:00 Doxazosin Mesylate (Cardura) 4 mg DAILY PO Last administered on 12/23/17 16:59 ; Start 12/23/17 at 16:00 Metoprolol Tartrate (Lopressor) 50 mg BID PO Last administered on 12/23/17at 20: 53; Start 12/23/17 at 21:00 Pantoprazole Sodium (Protonix) 40 mg DAILYAC PO Last administered on 12/23/17at 16:56; Start 12/23/17 at 16:00 Potassium Chloride (Klor-Con) 10 meq DAILYWBKFT PO ; Start 12/24/17 at 08:00 Non-Formulary Medication (Losartan/ Hydrochlorothiazide (Losartan-Hctz 100-12.5 Mg Tab)) 1 tab DAILY PO ; Start 12/24/17 at 09:00; Status UNV Simvastatin (Zocor) 20 mg HS PO Last administered on 12/23/17at 20:53; Start 01/30 at 21:00 Multivitamins 10 ml/Thiamine HCl 100 mg/Folic Acid 1 mg/Sodium Chloride 1,011.2 ml @ 1,000.088 mls/hr 1X ONCE IV Last administered on 12/23/17at 16:55; Start 12/23/17 at 16:00; Stop 12/23/17 at 17:00; Status DC Multivitamins (Thera M Plus) 1 tab DAILY PO ; Start 12/24/17 at 09:00 Folic Acid (Folic Acid) 1 mg DAILY PO ; Start 12/24/17 at 09:00 Lorazepam (Ativan) 2 mg PRN Q1HR PRN IV For CIWA 8-14 Last administered on 12/24at 03:04; Start 12/23/17 at 15:30 Lorazepam (Ativan) 4 mg PRN Q1HR PRN IV For CIWA 15 or greater; Start 12/23/17 at 15:30 Lorazepam (Ativan) 0.5 mg BID PO Last administered on 12/23/17at 20:53; Start at 21:00 Ceftriaxone Sodium (Rocephin) 1 gm Q24H IVP ; Start 12/24/17 at 11:00 Enoxaparin Sodium (Lovenox Per Pharmacy Prophylaxis Dosing) 1 each PRN DAILY PRN MC SEE COMMENTS; Start 12/23/17 at 15:30 Enoxaparin Sodium (Lovenox 40mg Syringe) 40 mg Q24H SQ Last administered on 01/30at 16:56; Start 12/23/17 at 16:00 Hydrochlorothiazide (Microzide) 12.5 mg DAILY PO Last administered on at 16:58; Start 12/23/17 at 16:00 Losartan Potassium (Cozaar) 100 mg DAILY PO Last administered on 12/23/17at 16: 58; Start 12/23/17 at 16:00 Thiamine Mononitrate (Vitamin B-1) 100 mg DAILY PO ; Start 12/24/17 at 09:00 Active Scripts Active Clonidine Hcl 0.1 Mg Tablet 0.1 Mg PO TID 60 Days Norvasc (Amlodipine Besylate) 10 Mg Tablet 10 Mg PO DAILY 60 Days Reported Losartan-Hctz 100-12.5 Mg Tab (Losartan/Hydrochlorothiazide) 1 Each Tablet 1 Tab PO DAILY Metoprolol Tartrate 50 Mg Tablet 1 Tab PO BID Pantoprazole Sodium 40 Mg Tablet.dr 1 Tab PO DAILY Simvastatin 20 Mg Tablet 1 Tab PO QHS Potassium Chloride 10 Meq Capsule.er 10 Meq PO DAILY Cardura (Doxazosin Mesylate) 4 Mg Tablet 1 Tab PO DAILY Vitals/I & O Vital Sign - Last 24 Hours 12/23/17 12/23/17 12/23/17 12/23/17 09:00 09:30 10:00 10:30 Temp 97.6 97.6 Pulse 66 63 70 74 Resp 16 16 16 18 Pulse Ox 94 95 96 95 12/23/17 12/23/17 12/23/17 9/10/18 11:00 11:30 15:00 16:41 Temp 98.6 98.6 Pulse 73 76 100 Resp 16 18 20 B/P (MAP) 114/63 (80) Pulse Ox 94 97 96 93 O2 Delivery Room Air Room Air 12/23/17 12/23/17 12/23/17 12/23/17 16:58 16:59 16:59 18:29 Pulse 94 94 94 B/P (MAP) 114/63 114/63 114/63 Pulse Ox 93 O2 Delivery Room Air 12/23/17 12/23/17 12/23/17 12/23/17 19:00 19:00 20:00 20:53 Temp 99.9 99.9 Pulse 107 93 103 Resp 18 B/P (MAP) 80/47 (58) 110/64 (79) 124/87 Pulse Ox 95 O2 Delivery Room Air Room Air 12/23/17 12/23/17 12/24/17 12/24/17 20:53 23:00 03:00 06:58 Temp 97.9 99.2 97.9 99.2 Pulse 103 99 76 Resp 18 18 B/P (MAP) 124/87 94/59 (71) 116/63 (80) Pulse Ox 92 93 93 O2 Delivery Room Air Room Air Room Air 12/24/17 07:00 Temp 97.7 97.7 Pulse 84 Resp 20 B/P (MAP) 114/66 (82) Pulse Ox 92 O2 Delivery Room Air Intake and Output 12/23/17 12/23/17 12/24/17 15:00 23:00 07:00 Intake Total 1300 ml Output Total 200 ml 425 ml Balance 1300 ml -200 ml -425 ml QUEENIE RIVAS MD Dec 24, 2017 09:03
[2017-12-24] MEDS: MULTIVITAMIN with MINERAL TABLET. PO SCH (09:57)
[2017-12-24] MEDS: POTASSIUM CHLORIDE 10 MEQ TABLET.ER. PO SCH (09:58)
[2017-12-24] MEDS: PANTOPRAZOLE 40 MG TABLET.DR. PO SCH (09:58)
[2017-12-24] MEDS: FOLIC ACID 1 MG TABLET. PO SCH (09:58)
[2017-12-24] MEDS: THIAMINE 100 MG TABLET. PO SCH (09:58)
[2017-12-24] MEDS: LORazepam 0.5 MG TABLET PO SCH ×2 (09:59→22:41)
--- NOTE | 2017-12-24 10:49 | PDOC ---
PROGRESS NOTES History of Present Illness History of Present Illness Assessment/Plan Assessment/Plan acute EtOH intoxication at 0900 AM. he only has 2 normal size drinks daily nausea and vomiting, symptom control, ativan sched and PRN fro EtOH syncope at home, likely vagal, but also intoxicated CXR showed some hazyiness that may be atelectasis/ aspiration? , IV abx started in ER, will give nebs, treating pneumonia leg weakess and poorly ambulatory, PT and OT and physiatry consult hx of Htn with likely chronic diastolic CHF relative hypotension, hold norvasc cxr in am will treat for possible withdrawal prn Vitals Vitals Vital Signs Date Time Temp Pulse Resp B/P (MAP) Pulse Ox O2 Delivery O2 Flow Rate FiO2 12/24/17 08:00 Room Air 12/24/17 07:00 97.7 84 20 114/66 (82) 92 97.7 Physical Exam General: Alert, Oriented X3, Cooperative, mild distress Heart: Regular rate, Normal S1, Normal S2 Lungs: Clear, Crackles, Other Abdomen: Normal bowel sounds, Soft Extremities: No cyanosis, Normal pulses Skin: No rashes, No significant lesion Labs LABS EXAM: CHEST 1 VIEW History: Shortness of breath COMPARISON: 08/24/2016 TECHNIQUE: Single portable radiograph of the chest FINDINGS: The cardiac silhouette is unremarkable. Bibasilar lung airspace opacities likely pneumonia or atelectasis. The costophrenic sulci are clear and well demarcated. IMPRESSION: Bibasilar lung airspace opacities likely atelectasis or infiltrates. Follow-up to resolution. Electronically signed by: Godwin Rosenberg MD (12/23/2017 9:33 AM) [id number] Laboratory Tests Test 12/23/17 14:38 12/23/17 23:30 12/24/17 06:00 Lactic Acid Level 2.6 mmol/L (0.4-2.0) Urine Collection Type Unknown Urine Color Jazzy Urine Clarity Clear Urine pH 5.5 Urine Specific Newton 1.015 Urine Protein Negative mg/dL (NEG-TRACE) Urine Glucose (UA) Negative mg/dL (NEG) Urine Ketones (Stick) 40 mg/dL (NEG) Urine Blood Negative (NEG) Urine Nitrite Negative (NEG) Urine Bilirubin Negative (NEG) Urine Urobilinogen Dipstick 1.0 mg/dL (0.2 mg/dL) Urine Leukocyte Esterase Small (NEG) Urine RBC Occ /HPF (0-2) Urine WBC 11-20 /HPF (0-4) Urine Squamous Epithelial Cells Occ /LPF Urine Bacteria 0 /HPF (0-FEW) Urine Hyaline Casts Few /HPF Urine Mucus Mod /LPF White Blood Count 4.5 x10^3/uL (4.0-11.0) Red Blood Count 2.95 x10^6/uL (4.30-5.70) Hemoglobin 10.4 g/dL (13.0-17.5) Hematocrit 30.8 % (39.0-53.0) Mean Corpuscular Volume 104 fL (79-100) Mean Corpuscular Hemoglobin 35 pg (25-35) Mean Corpuscular Hemoglobin Concent 34 g/dL (31-37) Red Cell Distribution Width 15.1 % (11.5-14.5) Platelet Count 110 x10^3/uL (140-400) Neutrophils (%) (Auto) 44 % (31-73) Lymphocytes (%) (Auto) 43 % (24-48) Monocytes (%) (Auto) 12 % (0-9) Eosinophils (%) (Auto) 0 % (0-3) Basophils (%) (Auto) 1 % (0-3) Neutrophils # (Auto) 2.0 x10^3uL (1.8-7.7) Lymphocytes # (Auto) 1.9 x10^3/uL (1.0-4.8) Monocytes # (Auto) 0.5 x10^3/uL (0.0-1.1) Eosinophils # (Auto) 0.0 x10^3/uL (0.0-0.7) Basophils # (Auto) 0.0 x10^3/uL (0.0-0.2) Sodium Level 135 mmol/L (136-145) Potassium Level 3.8 mmol/L (3.5-5.1) Chloride Level 103 mmol/L (98-107) Carbon Dioxide Level 21 mmol/L (21-32) Anion Gap 11 (6-14) Blood Urea Nitrogen 6 mg/dL (8-26) Creatinine 0.8 mg/dL (0.7-1.3) Estimated GFR (Cockcroft-Gault) 113.7 BUN/Creatinine Ratio 8 (6-20) Glucose Level 89 mg/dL (70-99) Calcium Level 8.4 mg/dL (8.5-10.1) Total Bilirubin 0.6 mg/dL (0.2-1.0) Aspartate Amino Transf (AST/SGOT) 128 U/L (15-37) Alanine Aminotransferase (ALT/SGPT) 57 U/L (16-63) Alkaline Phosphatase 55 U/L (46-116) Total Protein 6.0 g/dL (6.4-8.2) Albumin 2.3 g/dL (3.4-5.0) Albumin/Globulin Ratio 0.6 (1.0-1.7) Assessment and Plan Assessmemt and Plan Problems Medical Problems: (1) Pneumonia Status: Acute Comment Review of Relevant I have reviewed the following items azeb (where applicable) has been applied. Labs Laboratory Tests Test 12/23/17 09:25 12/23/17 10:40 12/23/17 14:38 12/23/17 23:30 White Blood Count 4.1 x10^3/uL (4.0-11.0) Red Blood Count 3.70 x10^6/uL (4.30-5.70) Hemoglobin 12.8 g/dL (13.0-17.5) Hematocrit 38.2 % (39.0-53.0) Mean Corpuscular Volume 103 fL (79-100) Mean Corpuscular Hemoglobin 35 pg (25-35) Mean Corpuscular Hemoglobin Concent 34 g/dL (31-37) Red Cell Distribution Width 14.9 % (11.5-14.5) Platelet Count 138 x10^3/uL (140-400) Neutrophils (%) (Auto) 42 % (31-73) Lymphocytes (%) (Auto) 42 % (24-48) Monocytes (%) (Auto) 9 % (0-9) Eosinophils (%) (Auto) 6 % (0-3) Basophils (%) (Auto) 1 % (0-3) Neutrophils # (Auto) 1.7 x10^3uL (1.8-7.7) Lymphocytes # (Auto) 1.8 x10^3/uL (1.0-4.8) Monocytes # (Auto) 0.4 x10^3/uL (0.0-1.1) Eosinophils # (Auto) 0.2 x10^3/uL (0.0-0.7) Basophils # (Auto) 0.0 x10^3/uL (0.0-0.2) Prothrombin Time 13.4 SEC (11.7-14.0) Prothromb Time International Ratio 1.1 (0.8-1.1) Sodium Level 133 mmol/L (136-145) Potassium Level 4.0 mmol/L (3.5-5.1) Chloride Level 99 mmol/L (98-107) Carbon Dioxide Level 23 mmol/L (21-32) Anion Gap 11 (6-14) Blood Urea Nitrogen 5 mg/dL (8-26) Creatinine 0.8 mg/dL (0.7-1.3) Estimated GFR (Cockcroft-Gault) 113.7 BUN/Creatinine Ratio 6 (6-20) Glucose Level 99 mg/dL (70-99) Calcium Level 9.2 mg/dL (8.5-10.1) Total Bilirubin 0.7 mg/dL (0.2-1.0) Aspartate Amino Transf (AST/SGOT) 203 U/L (15-37) Alanine Aminotransferase (ALT/SGPT) 77 U/L (16-63) Alkaline Phosphatase 71 U/L (46-116) Troponin I Quantitative < 0.017 ng/mL (0.000-0.055) SU-Ewf-M-Type Natriuretic Peptide 94 pg/mL (0-449) Total Protein 7.7 g/dL (6.4-8.2) Albumin 2.9 g/dL (3.4-5.0) Albumin/Globulin Ratio 0.6 (1.0-1.7) Ethyl Alcohol Level 191 mg/dL (0-10) Lactic Acid Level 2.6 mmol/L (0.4-2.0) 2.6 mmol/L (0.4-2.0) Urine Collection Type Unknown Urine Color Jazzy Urine Clarity Clear Urine pH 5.5 Urine Specific Newton 1.015 Urine Protein Negative mg/dL (NEG-TRACE) Urine Glucose (UA) Negative mg/dL (NEG) Urine Ketones (Stick) 40 mg/dL (NEG) Urine Blood Negative (NEG) Urine Nitrite Negative (NEG) Urine Bilirubin Negative (NEG) Urine Urobilinogen Dipstick 1.0 mg/dL (0.2 mg/dL) Urine Leukocyte Esterase Small (NEG) Urine RBC Occ /HPF (0-2) Urine WBC 11-20 /HPF (0-4) Urine Squamous Epithelial Cells Occ /LPF Urine Bacteria 0 /HPF (0-FEW) Urine Hyaline Casts Few /HPF Urine Mucus Mod /LPF Test 12/24/17 06:00 White Blood Count 4.5 x10^3/uL (4.0-11.0) Red Blood Count 2.95 x10^6/uL (4.30-5.70) Hemoglobin 10.4 g/dL (13.0-17.5) Hematocrit 30.8 % (39.0-53.0) Mean Corpuscular Volume 104 fL (79-100) Mean Corpuscular Hemoglobin 35 pg (25-35) Mean Corpuscular Hemoglobin Concent 34 g/dL (31-37) Red Cell Distribution Width 15.1 % (11.5-14.5) Platelet Count 110 x10^3/uL (140-400) Neutrophils (%) (Auto) 44 % (31-73) Lymphocytes (%) (Auto) 43 % (24-48) Monocytes (%) (Auto) 12 % (0-9) Eosinophils (%) (Auto) 0 % (0-3) Basophils (%) (Auto) 1 % (0-3) Neutrophils # (Auto) 2.0 x10^3uL (1.8-7.7) Lymphocytes # (Auto) 1.9 x10^3/uL (1.0-4.8) Monocytes # (Auto) 0.5 x10^3/uL (0.0-1.1) Eosinophils # (Auto) 0.0 x10^3/uL (0.0-0.7) Basophils # (Auto) 0.0 x10^3/uL (0.0-0.2) Sodium Level 135 mmol/L (136-145) Potassium Level 3.8 mmol/L (3.5-5.1) Chloride Level 103 mmol/L (98-107) Carbon Dioxide Level 21 mmol/L (21-32) Anion Gap 11 (6-14) Blood Urea Nitrogen 6 mg/dL (8-26) Creatinine 0.8 mg/dL (0.7-1.3) Estimated GFR (Cockcroft-Gault) 113.7 BUN/Creatinine Ratio 8 (6-20) Glucose Level 89 mg/dL (70-99) Calcium Level 8.4 mg/dL (8.5-10.1) Total Bilirubin 0.6 mg/dL (0.2-1.0) Aspartate Amino Transf (AST/SGOT) 128 U/L (15-37) Alanine Aminotransferase (ALT/SGPT) 57 U/L (16-63) Alkaline Phosphatase 55 U/L (46-116) Total Protein 6.0 g/dL (6.4-8.2) Albumin 2.3 g/dL (3.4-5.0) Albumin/Globulin Ratio 0.6 (1.0-1.7) Laboratory Tests Test 12/23/17 14:38 12/23/17 23:30 12/24/17 06:00 Lactic Acid Level 2.6 mmol/L (0.4-2.0) Urine Collection Type Unknown Urine Color Jazzy Urine Clarity Clear Urine pH 5.5 Urine Specific Newton 1.015 Urine Protein Negative mg/dL (NEG-TRACE) Urine Glucose (UA) Negative mg/dL (NEG) Urine Ketones (Stick) 40 mg/dL (NEG) Urine Blood Negative (NEG) Urine Nitrite Negative (NEG) Urine Bilirubin Negative (NEG) Urine Urobilinogen Dipstick 1.0 mg/dL (0.2 mg/dL) Urine Leukocyte Esterase Small (NEG) Urine RBC Occ /HPF (0-2) Urine WBC 11-20 /HPF (0-4) Urine Squamous Epithelial Cells Occ /LPF Urine Bacteria 0 /HPF (0-FEW) Urine Hyaline Casts Few /HPF Urine Mucus Mod /LPF White Blood Count 4.5 x10^3/uL (4.0-11.0) Red Blood Count 2.95 x10^6/uL (4.30-5.70) Hemoglobin 10.4 g/dL (13.0-17.5) Hematocrit 30.8 % (39.0-53.0) Mean Corpuscular Volume 104 fL (79-100) Mean Corpuscular Hemoglobin 35 pg (25-35) Mean Corpuscular Hemoglobin Concent 34 g/dL (31-37) Red Cell Distribution Width 15.1 % (11.5-14.5) Platelet Count 110 x10^3/uL (140-400) Neutrophils (%) (Auto) 44 % (31-73) Lymphocytes (%) (Auto) 43 % (24-48) Monocytes (%) (Auto) 12 % (0-9) Eosinophils (%) (Auto) 0 % (0-3) Basophils (%) (Auto) 1 % (0-3) Neutrophils # (Auto) 2.0 x10^3uL (1.8-7.7) Lymphocytes # (Auto) 1.9 x10^3/uL (1.0-4.8) Monocytes # (Auto) 0.5 x10^3/uL (0.0-1.1) Eosinophils # (Auto) 0.0 x10^3/uL (0.0-0.7) Basophils # (Auto) 0.0 x10^3/uL (0.0-0.2) Sodium Level 135 mmol/L (136-145) Potassium Level 3.8 mmol/L (3.5-5.1) Chloride Level 103 mmol/L (98-107) Carbon Dioxide Level 21 mmol/L (21-32) Anion Gap 11 (6-14) Blood Urea Nitrogen 6 mg/dL (8-26) Creatinine 0.8 mg/dL (0.7-1.3) Estimated GFR (Cockcroft-Gault) 113.7 BUN/Creatinine Ratio 8 (6-20) Glucose Level 89 mg/dL (70-99) Calcium Level 8.4 mg/dL (8.5-10.1) Total Bilirubin 0.6 mg/dL (0.2-1.0) Aspartate Amino Transf (AST/SGOT) 128 U/L (15-37) Alanine Aminotransferase (ALT/SGPT) 57 U/L (16-63) Alkaline Phosphatase 55 U/L (46-116) Total Protein 6.0 g/dL (6.4-8.2) Albumin 2.3 g/dL (3.4-5.0) Albumin/Globulin Ratio 0.6 (1.0-1.7) Microbiology 12/23/17 Blood Culture - Preliminary, Resulted NO GROWTH AFTER 1 DAY Medications Current Medications Sodium Chloride 1,000 ml @ 1,000 mls/hr 1X ONCE IV Last administered on at 09:39; Start 12/23/17 at 09:00; Stop 12/23/17 at 09:59; Status DC Diphtheria/ Tetanus/Acell Pertussis (Boostrix) 0.5 ml ONCE ONCE VAX IM Last administered on 12/23/17at 10:12; Start 12/23/17 at 09:00; Stop 12/23/17 at 09:01 ; Status DC Sodium Chloride 1,000 ml @ 75 mls/hr [id number] IV Last administered on at 03:04; Start 12/23/17 at 10:05; Stop 12/24/17 at 10:04; Status DC Ceftriaxone Sodium 50 ml @ 100 mls/hr 1X ONCE IV Last administered on at 10:57; Start 12/23/17 at 10:15; Stop 12/23/17 at 10:44; Status DC Azithromycin 250 ml @ 250 mls/hr 1X ONCE IV ; Start 12/23/17 at 10:15; Stop at 11:14; Status Cancel Azithromycin 500 mg/Sodium Chloride 250 ml @ 250 mls/hr 1X ONCE IV Last administered on 12/23/17at 13:12; Start 12/23/17 at 12:30; Stop 12/23/17 at 13:29 ; Status DC Ondansetron HCl (Zofran) 4 mg PRN Q6HRS PRN IV NAUSEA/VOMITING Last administered on 12/23/17at 14:40; Start 12/23/17 at 14:15 Ceftriaxone Sodium 1 gm/ Dextrose 50 ml @ 100 mls/hr Q24H IV ; Start 12/23/17 at 15:15; Status UNV Azithromycin (Zithromax) 250 mg DAILY PO Last administered on 12/24/17at 09:58; Start 12/24/17 at 09:00 Albuterol/ Ipratropium (Duoneb) 3 ml RTQID NEB Last administered on 12/24/17at 06:58; Start 12/23/17 at 16:00 Clonidine HCl (Catapres) 0.1 mg TID PO Last administered on 12/23/17at 20:53; Start 12/23/17 at 16:00 Doxazosin Mesylate (Cardura) 4 mg DAILY PO Last administered on 12/23/17at 16:59 ; Start 12/23/17 at 16:00 Metoprolol Tartrate (Lopressor) 50 mg BID PO Last administered on 12/23/17at 20: 53; Start 12/23/17 at 21:00 Pantoprazole Sodium (Protonix) 40 mg DAILYAC PO Last administered on 12/24/17at 09:58; Start 12/23/17 at 16:00 Potassium Chloride (Klor-Con) 10 meq [id number] PO Last administered on at 09:58; Start 12/24/17 at 08:00 Non-Formulary Medication (Losartan/ Hydrochlorothiazide (Losartan-Hctz 100-12.5 Mg Tab)) 1 tab DAILY PO ; Start 12/24/17 at 09:00; Status UNV Simvastatin (Zocor) 20 mg HS PO Last administered on 12/23/17at 20:53; Start 01/30 at 21:00 Multivitamins 10 ml/Thiamine HCl 100 mg/Folic Acid 1 mg/Sodium Chloride 1,011.2 ml @ 1,000.088 mls/hr 1X ONCE IV Last administered on 12/23/17at 16:55; Start 12/23/17 at 16:00; Stop 12/23/17 at 17:00; Status DC Multivitamins (Thera M Plus) 1 tab DAILY PO Last administered on 12/24/17at 09: 57; Start 12/24/17 at 09:00 Folic Acid (Folic Acid) 1 mg DAILY PO Last administered on 12/24/17at 09:58; Start 12/24/17 at 09:00 Lorazepam (Ativan) 2 mg PRN Q1HR PRN IV For CIWA 8-14 Last administered on 12/24at 03:04; Start 12/23/17 at 15:30 Lorazepam (Ativan) 4 mg PRN Q1HR PRN IV For CIWA 15 or greater; Start 12/23/17 at 15:30 Lorazepam (Ativan) 0.5 mg BID PO Last administered on 12/24/17at 09:59; Start at 21:00 Ceftriaxone Sodium (Rocephin) 1 gm Q24H IVP ; Start 12/24/17 at 11:00 Enoxaparin Sodium (Lovenox Per Pharmacy Prophylaxis Dosing) 1 each PRN DAILY PRN MC SEE COMMENTS; Start 12/23/17 at 15:30 Enoxaparin Sodium (Lovenox 40mg Syringe) 40 mg Q24H SQ Last administered on 01/30at 16:56; Start 12/23/17 at 16:00 Hydrochlorothiazide (Microzide) 12.5 mg DAILY PO Last administered on at 16:58; Start 12/23/17 at 16:00 Losartan Potassium (Cozaar) 100 mg DAILY PO Last administered on 12/23/17at 16: 58; Start 12/23/17 at 16:00 Thiamine Mononitrate (Vitamin B-1) 100 mg DAILY PO Last administered on at 09:58; Start 12/24/17 at 09:00 Active Scripts Active Clonidine Hcl 0.1 Mg Tablet 0.1 Mg PO TID 60 Days Norvasc (Amlodipine Besylate) 10 Mg Tablet 10 Mg PO DAILY 60 Days Reported Losartan-Hctz 100-12.5 Mg Tab (Losartan/Hydrochlorothiazide) 1 Each Tablet 1 Tab PO DAILY Metoprolol Tartrate 50 Mg Tablet 1 Tab PO BID Pantoprazole Sodium 40 Mg Tablet.dr 1 Tab PO DAILY Simvastatin 20 Mg Tablet 1 Tab PO QHS Potassium Chloride 10 Meq Capsule.er 10 Meq PO DAILY Cardura (Doxazosin Mesylate) 4 Mg Tablet 1 Tab PO DAILY Vitals/I & O Vital Sign - Last 24 Hours 12/23/17 12/23/17 12/23/17 12/23/17 11:00 11:30 15:00 16:41 Temp 98.6 98.6 Pulse 73 76 100 Resp 16 18 20 B/P (MAP) 114/63 (80) Pulse Ox 94 97 96 93 O2 Delivery Room Air Room Air 12/23/17 12/23/17 12/23/17 12/23/17 16:58 16:59 16:59 18:29 Pulse 94 94 94 B/P (MAP) 114/63 114/63 114/63 Pulse Ox 93 O2 Delivery Room Air 12/23/17 12/23/17 12/23/17 12/23/17 19:00 19:00 20:00 20:53 Temp 99.9 99.9 Pulse 107 93 103 Resp 18 B/P (MAP) 80/47 (58) 110/64 (79) 124/87 Pulse Ox 95 O2 Delivery Room Air Room Air 12/23/17 12/23/17 12/24/17 12/24/17 20:53 23:00 03:00 06:58 Temp 97.9 99.2 97.9 99.2 Pulse 103 99 76 Resp 18 18 B/P (MAP) 124/87 94/59 (71) 116/63 (80) Pulse Ox 92 93 93 O2 Delivery Room Air Room Air Room Air 12/24/17 12/24/17 07:00 08:00 Temp 97.7 97.7 Pulse 84 Resp 20 B/P (MAP) 114/66 (82) Pulse Ox 92 O2 Delivery Room Air Room Air Intake and Output 12/23/17 12/23/17 12/24/17 15:00 23:00 07:00 Intake Total 1300 ml Output Total 200 ml 425 ml Balance 1300 ml -200 ml -425 ml PADMAJA GOTTI MD Dec 24, 2017 10:49
[2017-12-24] MEDS ORDERED: cefTRIAXone IV Push 1 GM VIAL. IVP SCH (11:00)
[2017-12-24 11:40] VITALS: BP_SYST 114; BP_SYST 99; BP_DIAS 55; BP_DIAS 66
[2017-12-24 15:00] VITALS: BP 107/64
[2017-12-24] MEDS: ENOXAPARIN 40 MG/0.4 ML SYRINGE. SQ SCH (16:12)
--- NOTE | 2017-12-24 17:02 | RAD ---
Portable chest, 12/24/2017: HISTORY: Pneumonitis Comparison is made to yesterday's study. The heart is at the upper limits of normal in size. There is calcific plaquing of the aorta. There is linear atelectasis in the right base. There are patchy left basilar opacities compatible with atelectasis/infiltrate. These have worsened slightly. The upper lung moseley are clear. No pleural fluid is seen. IMPRESSION: Mild bibasilar atelectasis/infiltrate with slight interval worsening on the left. Electronically signed by: Benjy Poole MD (12/24/2017 4:58 PM) [facility]
[2017-12-24] MEDS: PIPERACILLIN/TAZOBACTAM 3.375 GM in IV NORMAL SALINE 50ML 50 ML IV SCH ×2 (17:58→23:48)
[2017-12-24 19:00] VITALS: BP 121/77
[2017-12-24] MEDS: SIMVASTATIN 20 MG TABLET PO SCH (22:41)
[2017-12-24] MEDS: LACTOBACILLUS RHAMNOSUS GG 1 CAPSULE. PO SCH (22:41)
[2017-12-24 23:00] VITALS: BP 124/82
[2017-12-25 03:00] VITALS: BP 140/83
[2017-12-25] MEDS: PIPERACILLIN/TAZOBACTAM 3.375 GM in IV NORMAL SALINE 50ML 50 ML IV SCH (05:03)
[2017-12-25 07:00] VITALS: BP 115/69
[2017-12-25] MEDS: IPRATRPIUM/ALBUTEROL 0.5/2.5MG 3 ML NEBU. NEB SCH ×3 (07:31→16:11)
[2017-12-25] MEDS ORDERED: THIA100T22 PO (08:56)
[2017-12-25] MEDS ORDERED: FOLI1TAB16 PO (08:56)
[2017-12-25] MEDS ORDERED: MULT1TAB90 PO (08:56)
--- NOTE | 2017-12-25 08:56 | DISCH ---
DISCHARGE DISCHARGE INFORMATION: FINAL DIAGNOSIS Problems Medical Problems: (1) Pneumonia Status: Acute CONDITION ON DISCHARGE: Stable CODE STATUS: Code Status: Full USP: SNF STAY <30 DAYS: Yes HOSPICE: HOSPICE: No HOSPICE EVAL & TREAT: No LTAC: ADMIT TO LTAC: No POST DISCHARGE ORDERS: ACTIVITY ORDERS: No restrictions, Activity as tolerated WEIGHT BEARING STATUS: No restrictions, As tolerated DIET AFTER DISCHARGE: Regular CHECKS AFTER DISCHARGE: CHECKS AFTER DISCHARGE: Check blood press - daily TREATMENT/EQUIPMENT ORDERS: ADAPTIVE EQUIPMENT NEEDED: None Physical Therapy For: Evalulation/Treatment Occupational Therapy For: Evaluation/Treatment DISCHARGE MEDICATIONS: Home Meds Active Scripts Multivits,Ca,Minerals/Iron/Fa (THERA-M TABLET) 1 Each Tablet, 1 TAB PO DAILY for 14 Days, #14 TAB Prov:JULIUS MONAHAN MD 12/25/17 Thiamine Mononitrate (VITAMIN B-1) 100 Mg Tablet, 100 MG PO DAILY for 14 Days, # 14 TAB Prov:JULIUS MONAHAN MD 12/25/17 Folic Acid (FOLIC ACID) 1 Mg Tablet, 1 MG PO DAILY for 14 Days, #14 TAB Prov:JULIUS MONAHAN MD 12/25/17 Clonidine Hcl (CLONIDINE HCL) 0.1 Mg Tablet, 0.1 MG PO TID for 60 Days, #180 TAB Prov:JULIUS MONAHAN MD 08/27/16 Amlodipine Besylate (NORVASC) 10 Mg Tablet, 10 MG PO DAILY for 60 Days, #60 TAB Prov:JULIUS MONAHAN MD 08/27/16 Reported Medications Losartan/Hydrochlorothiazide (LOSARTAN-HCTZ 100-12.5 MG TAB) 1 Each Tablet, 1 TAB PO DAILY, #30 TAB 5 Refills 08/25/16 Metoprolol Tartrate (METOPROLOL TARTRATE) 50 Mg Tablet, 1 TAB PO BID, #60 TAB 5 Refills 08/25/16 Pantoprazole Sodium (PANTOPRAZOLE SODIUM) 40 Mg Tablet.dr, 1 TAB PO DAILY, #30 TAB 3 Refills 08/25/16 Simvastatin (SIMVASTATIN) 20 Mg Tablet, 1 TAB PO QHS, #30 TAB 5 Refills 08/25/16 Potassium Chloride (POTASSIUM CHLORIDE) 10 Meq Capsule.er, 10 MEQ PO DAILY, TAB.SR 08/25/16 Doxazosin Mesylate (CARDURA) 4 Mg Tablet, 1 TAB PO DAILY, #30 TAB 5 Refills 08/25/16 JULIUS MONAHAN MD Dec 25, 2017 08:56
--- NOTE | 2017-12-25 09:23 | PDOC ---
PROGRESS NOTES Subjective Subjective No new complaints. Objective Objective Vital Signs Date Time Temp Pulse Resp B/P (MAP) Pulse Ox O2 Delivery O2 Flow Rate FiO2 12/25/17 07:32 98 Room Air 12/25/17 03:00 98.6 84 18 140/83 (102) 98.6 Intake and Output 12/25/17 07:00 Output Total 2050 ml Balance -2050 ml Output Urine Total 2050 ml # Voids 2 Physical Exam Physical Exam He is supine in bed and comfortable but wants to rest and he walked for short distance with roller walker with physical therapy and they recommend him to go to SNF. Assessment Assessment Problems Medical Problems: (1) Pneumonia Status: Acute Plan Plan of Care To ask for SNF screen. Comment Review of Relevant I have reviewed the following items azeb (where applicable) has been applied. Labs Laboratory Tests Test 12/23/17 09:25 12/23/17 10:40 12/23/17 14:38 12/23/17 23:30 White Blood Count 4.1 x10^3/uL (4.0-11.0) Red Blood Count 3.70 x10^6/uL (4.30-5.70) Hemoglobin 12.8 g/dL (13.0-17.5) Hematocrit 38.2 % (39.0-53.0) Mean Corpuscular Volume 103 fL (79-100) Mean Corpuscular Hemoglobin 35 pg (25-35) Mean Corpuscular Hemoglobin Concent 34 g/dL (31-37) Red Cell Distribution Width 14.9 % (11.5-14.5) Platelet Count 138 x10^3/uL (140-400) Neutrophils (%) (Auto) 42 % (31-73) Lymphocytes (%) (Auto) 42 % (24-48) Monocytes (%) (Auto) 9 % (0-9) Eosinophils (%) (Auto) 6 % (0-3) Basophils (%) (Auto) 1 % (0-3) Neutrophils # (Auto) 1.7 x10^3uL (1.8-7.7) Lymphocytes # (Auto) 1.8 x10^3/uL (1.0-4.8) Monocytes # (Auto) 0.4 x10^3/uL (0.0-1.1) Eosinophils # (Auto) 0.2 x10^3/uL (0.0-0.7) Basophils # (Auto) 0.0 x10^3/uL (0.0-0.2) Prothrombin Time 13.4 SEC (11.7-14.0) Prothromb Time International Ratio 1.1 (0.8-1.1) Sodium Level 133 mmol/L (136-145) Potassium Level 4.0 mmol/L (3.5-5.1) Chloride Level 99 mmol/L (98-107) Carbon Dioxide Level 23 mmol/L (21-32) Anion Gap 11 (6-14) Blood Urea Nitrogen 5 mg/dL (8-26) Creatinine 0.8 mg/dL (0.7-1.3) Estimated GFR (Cockcroft-Gault) 113.7 BUN/Creatinine Ratio 6 (6-20) Glucose Level 99 mg/dL (70-99) Calcium Level 9.2 mg/dL (8.5-10.1) Total Bilirubin 0.7 mg/dL (0.2-1.0) Aspartate Amino Transf (AST/SGOT) 203 U/L (15-37) Alanine Aminotransferase (ALT/SGPT) 77 U/L (16-63) Alkaline Phosphatase 71 U/L (46-116) Troponin I Quantitative < 0.017 ng/mL (0.000-0.055) DP-Htx-F-Type Natriuretic Peptide 94 pg/mL (0-449) Total Protein 7.7 g/dL (6.4-8.2) Albumin 2.9 g/dL (3.4-5.0) Albumin/Globulin Ratio 0.6 (1.0-1.7) Ethyl Alcohol Level 191 mg/dL (0-10) Lactic Acid Level 2.6 mmol/L (0.4-2.0) 2.6 mmol/L (0.4-2.0) Urine Collection Type Unknown Urine Color Jazzy Urine Clarity Clear Urine pH 5.5 Urine Specific [place] 1.015 Urine Protein Negative mg/dL (NEG-TRACE) Urine Glucose (UA) Negative mg/dL (NEG) Urine Ketones (Stick) 40 mg/dL (NEG) Urine Blood Negative (NEG) Urine Nitrite Negative (NEG) Urine Bilirubin Negative (NEG) Urine Urobilinogen Dipstick 1.0 mg/dL (0.2 mg/dL) Urine Leukocyte Esterase Small (NEG) Urine RBC Occ /HPF (0-2) Urine WBC 11-20 /HPF (0-4) Urine Squamous Epithelial Cells Occ /LPF Urine Bacteria 0 /HPF (0-FEW) Urine Hyaline Casts Few /HPF Urine Mucus Mod /LPF Test 12/24/17 06:00 White Blood Count 4.5 x10^3/uL (4.0-11.0) Red Blood Count 2.95 x10^6/uL (4.30-5.70) Hemoglobin 10.4 g/dL (13.0-17.5) Hematocrit 30.8 % (39.0-53.0) Mean Corpuscular Volume 104 fL (79-100) Mean Corpuscular Hemoglobin 35 pg (25-35) Mean Corpuscular Hemoglobin Concent 34 g/dL (31-37) Red Cell Distribution Width 15.1 % (11.5-14.5) Platelet Count 110 x10^3/uL (140-400) Neutrophils (%) (Auto) 44 % (31-73) Lymphocytes (%) (Auto) 43 % (24-48) Monocytes (%) (Auto) 12 % (0-9) Eosinophils (%) (Auto) 0 % (0-3) Basophils (%) (Auto) 1 % (0-3) Neutrophils # (Auto) 2.0 x10^3uL (1.8-7.7) Lymphocytes # (Auto) 1.9 x10^3/uL (1.0-4.8) Monocytes # (Auto) 0.5 x10^3/uL (0.0-1.1) Eosinophils # (Auto) 0.0 x10^3/uL (0.0-0.7) Basophils # (Auto) 0.0 x10^3/uL (0.0-0.2) Sodium Level 135 mmol/L (136-145) Potassium Level 3.8 mmol/L (3.5-5.1) Chloride Level 103 mmol/L (98-107) Carbon Dioxide Level 21 mmol/L (21-32) Anion Gap 11 (6-14) Blood Urea Nitrogen 6 mg/dL (8-26) Creatinine 0.8 mg/dL (0.7-1.3) Estimated GFR (Cockcroft-Gault) 113.7 BUN/Creatinine Ratio 8 (6-20) Glucose Level 89 mg/dL (70-99) Calcium Level 8.4 mg/dL (8.5-10.1) Total Bilirubin 0.6 mg/dL (0.2-1.0) Aspartate Amino Transf (AST/SGOT) 128 U/L (15-37) Alanine Aminotransferase (ALT/SGPT) 57 U/L (16-63) Alkaline Phosphatase 55 U/L (46-116) Total Protein 6.0 g/dL (6.4-8.2) Albumin 2.3 g/dL (3.4-5.0) Albumin/Globulin Ratio 0.6 (1.0-1.7) Microbiology 12/23/17 Blood Culture - Preliminary, Resulted NO GROWTH AFTER 1 DAY Medications Current Medications Sodium Chloride 1,000 ml @ 1,000 mls/hr 1X ONCE IV Last administered on at 09:39; Start 12/23/17 at 09:00; Stop 12/23/17 at 09:59; Status DC Diphtheria/ Tetanus/Acell Pertussis (Boostrix) 0.5 ml ONCE ONCE VAX IM Last administered on 12/23/17at 10:12; Start 12/23/17 at 09:00; Stop 12/23/17 at 09:01 ; Status DC Sodium Chloride 1,000 ml @ 75 mls/hr [id number] IV Last administered on at 03:04; Start 12/23/17 at 10:05; Stop 12/24/17 at 10:04; Status DC Ceftriaxone Sodium 50 ml @ 100 mls/hr 1X ONCE IV Last administered on at 10:57; Start 12/23/17 at 10:15; Stop 12/23/17 at 10:44; Status DC Azithromycin 250 ml @ 250 mls/hr 1X ONCE IV ; Start 12/23/17 at 10:15; Stop at 11:14; Status Cancel Azithromycin 500 mg/Sodium Chloride 250 ml @ 250 mls/hr 1X ONCE IV Last administered on 12/23/17at 13:12; Start 12/23/17 at 12:30; Stop 12/23/17 at 13:29 ; Status DC Ondansetron HCl (Zofran) 4 mg PRN Q6HRS PRN IV NAUSEA/VOMITING Last administered on 12/23/17at 14:40; Start 12/23/17 at 14:15 Ceftriaxone Sodium 1 gm/ Dextrose 50 ml @ 100 mls/hr Q24H IV ; Start 12/23/17 at 15:15; Status UNV Azithromycin (Zithromax) 250 mg DAILY PO Last administered on 12/24/17 09:58; Start 12/24/17 at 09:00; Stop 12/25/17 at 09:11; Status DC Albuterol/ Ipratropium (Duoneb) 3 ml RTQID NEB Last administered on 12/25/17at 07:31; Start 12/23/17 at 16:00 Clonidine HCl (Catapres) 0.1 mg TID PO Last administered on 12/24/17 22:41; Start 12/23/17 at 16:00 Doxazosin Mesylate (Cardura) 4 mg DAILY PO Last administered on 12/23/17at 16:59 ; Start 12/23/17 at 16:00 Metoprolol Tartrate (Lopressor) 50 mg BID PO Last administered on 12/24/17at 22: 41; Start 12/23/17 at 21:00 Pantoprazole Sodium (Protonix) 40 mg DAILYAC PO Last administered on 12/24/17 09:58; Start 12/23/17 at 16:00 Potassium Chloride (Klor-Con) 10 meq [id number] PO Last administered on at 09:58; Start 12/24/17 at 08:00 Non-Formulary Medication (Losartan/ Hydrochlorothiazide (Losartan-Hctz 100-12.5 Mg Tab)) 1 tab DAILY PO ; Start 12/24/17 at 09:00; Status UNV Simvastatin (Zocor) 20 mg HS PO Last administered on 12/24/17at 22:41; Start 01/30 at 21:00 Multivitamins 10 ml/Thiamine HCl 100 mg/Folic Acid 1 mg/Sodium Chloride 1,011.2 ml @ 1,000.088 mls/hr 1X ONCE IV Last administered on 12/23/17at 16:55; Start 12/23/17 at 16:00; Stop 12/23/17 at 17:00; Status DC Multivitamins (Thera M Plus) 1 tab DAILY PO Last administered on 12/24/17 09: 57; Start 12/24/17 at 09:00 Folic Acid (Folic Acid) 1 mg DAILY PO Last administered on 12/24/17at 09:58; Start 12/24/17 at 09:00 Lorazepam (Ativan) 2 mg PRN Q1HR PRN IV For CIWA 8-14 Last administered on 12/24at 03:04; Start 12/23/17 at 15:30 Lorazepam (Ativan) 4 mg PRN Q1HR PRN IV For CIWA 15 or greater; Start 12/23/17 at 15:30 Lorazepam (Ativan) 0.5 mg BID PO Last administered on 12/24/17 22:41; Start at 21:00 Ceftriaxone Sodium (Rocephin) 1 gm Q24H IVP Last administered on 12/24/17at 11: 45; Start 12/24/17 at 11:00; Stop 12/24/17 at 15:47; Status DC Enoxaparin Sodium (Lovenox Per Pharmacy Prophylaxis Dosing) 1 each PRN DAILY PRN MC SEE COMMENTS; Start 12/23/17 at 15:30 Enoxaparin Sodium (Lovenox 40mg Syringe) 40 mg Q24H SQ Last administered on 03/02at 16:12; Start 12/23/17 at 16:00 Hydrochlorothiazide (Microzide) 12.5 mg DAILY PO Last administered on at 16:58; Start 12/23/17 at 16:00 Losartan Potassium (Cozaar) 100 mg DAILY PO Last administered on 12/23/17at 16: 58; Start 12/23/17 at 16:00 Thiamine Mononitrate (Vitamin B-1) 100 mg DAILY PO Last administered on at 09:58; Start 12/24/17 at 09:00 Lactobacillus Rhamnosus (Culturelle) 1 cap BID PO Last administered on at 22:41; Start 12/24/17 at 21:00 Piperacillin Sod/ Tazobactam Sod 3.375 gm/Sodium Chloride 50 ml @ 100 mls/hr Q6HRS IV Last administered on 12/25/17at 05:03; Start 12/24/17 at 18:00; Stop at 08:55; Status DC Levofloxacin/ Dextrose 100 ml @ 100 mls/hr Q24H IV Last administered on at 16:49; Start 12/24/17 at 17:00; Stop 12/25/17 at 08:55; Status DC Levofloxacin (Levaquin) 500 mg Q24H PO ; Start 12/25/17 at 16:00 Active Scripts Active Thera-M Tablet (Multivits,Ca,Minerals/Iron/Fa) 1 Each Tablet 1 Tab PO DAILY 14 Days Vitamin B-1 (Thiamine Mononitrate) 100 Mg Tablet 100 Mg PO DAILY 14 Days Folic Acid 1 Mg Tablet 1 Mg PO DAILY 14 Days Clonidine Hcl 0.1 Mg Tablet 0.1 Mg PO TID 60 Days Norvasc (Amlodipine Besylate) 10 Mg Tablet 10 Mg PO DAILY 60 Days Reported Losartan-Hctz 100-12.5 Mg Tab (Losartan/Hydrochlorothiazide) 1 Each Tablet 1 Tab PO DAILY Metoprolol Tartrate 50 Mg Tablet 1 Tab PO BID Pantoprazole Sodium 40 Mg Tablet.dr 1 Tab PO DAILY Simvastatin 20 Mg Tablet 1 Tab PO QHS Potassium Chloride 10 Meq Capsule.er 10 Meq PO DAILY Cardura (Doxazosin Mesylate) 4 Mg Tablet 1 Tab PO DAILY Vitals/I & O Vital Sign - Last 24 Hours 12/24/17 12/24/17 12/24/17 12/24/17 10:59 11:40 11:40 15:00 Temp 97.7 97.7 Pulse 102 123 111 Resp 20 B/P (MAP) 114/66 (82) 99/55 (70) 107/64 (78) Pulse Ox 94 98 O2 Delivery Room Air Room Air 12/24/17 12/24/17 12/24/17 12/24/17 16:06 19:00 19:43 20:00 Temp 97.7 97.7 Pulse 113 Resp 18 B/P (MAP) 121/77 (92) Pulse Ox 95 O2 Delivery Room Air Room Air Room Air Room Air 12/24/17 12/24/17 12/24/17 12/25/17 22:41 22:41 23:00 03:00 Temp 97.9 98.6 97.9 98.6 Pulse 113 113 103 84 Resp 18 18 B/P (MAP) 121/77 121/77 124/82 (96) 140/83 (102) Pulse Ox 96 95 O2 Delivery Room Air Room Air 12/25/17 07:32 Pulse Ox 98 O2 Delivery Room Air Intake and Output 12/24/17 12/24/17 12/25/17 15:00 23:00 07:00 Output Total 2050 ml Balance -2050 ml QUEENIE RIVAS MD Dec 25, 2017 09:23
[2017-12-25] MEDS: FOLIC ACID 1 MG TABLET. PO SCH (09:24)
[2017-12-25] MEDS: POTASSIUM CHLORIDE 10 MEQ TABLET.ER. PO SCH (09:24)
[2017-12-25] MEDS: LACTOBACILLUS RHAMNOSUS GG 1 CAPSULE. PO SCH (09:24)
[2017-12-25] MEDS: LORazepam 0.5 MG TABLET PO SCH (09:25)
[2017-12-25] MEDS: MULTIVITAMIN with MINERAL TABLET. PO SCH (09:25)
[2017-12-25] MEDS: THIAMINE 100 MG TABLET. PO SCH (09:25)
[2017-12-25] MEDS: PANTOPRAZOLE 40 MG TABLET.DR. PO SCH (09:25)
--- NOTE | 2017-12-25 09:58 | PDOC3 ---
Discharge Summary Visit Information Date of Admission: Dec 23, 2017 Date of Discharge: Dec 25, 2017 Admitting Diagnosis Comment: etoh dependence/intoxication POA resolved Bilateral leg weakness Syncope, not cardiac in etiology Generalized weakness Pneumonia Final Diagnosis Problems Medical Problems: (1) Pneumonia Status: Acute Brief Hospital Course Allergies Allergies Coded Allergies Type Severity Reaction Last Updated Verified No Known Drug Allergies 08/24/16 No Vital Signs Vital Signs Date Time Temp Pulse Resp B/P (MAP) Pulse Ox O2 Delivery O2 Flow Rate FiO2 12/25/17 07:32 98 Room Air 12/25/17 03:00 98.6 84 18 140/83 (102) 98.6 Lab Results Laboratory Tests Test 12/23/17 10:40 12/23/17 14:38 12/23/17 23:30 12/24/17 06:00 Lactic Acid Level 2.6 mmol/L (0.4-2.0) 2.6 mmol/L (0.4-2.0) Urine Collection Type Unknown Urine Color Jazzy Urine Clarity Clear Urine pH 5.5 Urine Specific [place] 1.015 Urine Protein Negative mg/dL (NEG-TRACE) Urine Glucose (UA) Negative mg/dL (NEG) Urine Ketones (Stick) 40 mg/dL (NEG) Urine Blood Negative (NEG) Urine Nitrite Negative (NEG) Urine Bilirubin Negative (NEG) Urine Urobilinogen Dipstick 1.0 mg/dL (0.2 mg/dL) Urine Leukocyte Esterase Small (NEG) Urine RBC Occ /HPF (0-2) Urine WBC 11-20 /HPF (0-4) Urine Squamous Epithelial Cells Occ /LPF Urine Bacteria 0 /HPF (0-FEW) Urine Hyaline Casts Few /HPF Urine Mucus Mod /LPF White Blood Count 4.5 x10^3/uL (4.0-11.0) Red Blood Count 2.95 x10^6/uL (4.30-5.70) Hemoglobin 10.4 g/dL (13.0-17.5) Hematocrit 30.8 % (39.0-53.0) Mean Corpuscular Volume 104 fL (79-100) Mean Corpuscular Hemoglobin 35 pg (25-35) Mean Corpuscular Hemoglobin Concent 34 g/dL (31-37) Red Cell Distribution Width 15.1 % (11.5-14.5) Platelet Count 110 x10^3/uL (140-400) Neutrophils (%) (Auto) 44 % (31-73) Lymphocytes (%) (Auto) 43 % (24-48) Monocytes (%) (Auto) 12 % (0-9) Eosinophils (%) (Auto) 0 % (0-3) Basophils (%) (Auto) 1 % (0-3) Neutrophils # (Auto) 2.0 x10^3uL (1.8-7.7) Lymphocytes # (Auto) 1.9 x10^3/uL (1.0-4.8) Monocytes # (Auto) 0.5 x10^3/uL (0.0-1.1) Eosinophils # (Auto) 0.0 x10^3/uL (0.0-0.7) Basophils # (Auto) 0.0 x10^3/uL (0.0-0.2) Sodium Level 135 mmol/L (136-145) Potassium Level 3.8 mmol/L (3.5-5.1) Chloride Level 103 mmol/L (98-107) Carbon Dioxide Level 21 mmol/L (21-32) Anion Gap 11 (6-14) Blood Urea Nitrogen 6 mg/dL (8-26) Creatinine 0.8 mg/dL (0.7-1.3) Estimated GFR (Cockcroft-Gault) 113.7 BUN/Creatinine Ratio 8 (6-20) Glucose Level 89 mg/dL (70-99) Calcium Level 8.4 mg/dL (8.5-10.1) Total Bilirubin 0.6 mg/dL (0.2-1.0) Aspartate Amino Transf (AST/SGOT) 128 U/L (15-37) Alanine Aminotransferase (ALT/SGPT) 57 U/L (16-63) Alkaline Phosphatase 55 U/L (46-116) Total Protein 6.0 g/dL (6.4-8.2) Albumin 2.3 g/dL (3.4-5.0) Albumin/Globulin Ratio 0.6 (1.0-1.7) Brief Hospital Course Mr. Ho is a 77 old [place] male who came from home,admitted for a fall, came in with some alcohol levels, we did watch out for intoxication or withdrawal symptoms. He's pretty good in that regard. He has bilateral leg weakness, his legs would get weak. Needs SNU and has been accepted at [facility]. Course remarkable for some incidental pneumonia, no SOA, no hypoxia or respiratory failure. I am giving some CAP coverage,dc today [facility]. Full code Med list on file pt seen and examined : Discharge Information Condition at Discharge: Improved, Stable Disposition/Orders: Other (snu) Scheduled Amlodipine Besylate (Norvasc) 10 Mg Tablet, 10 MG PO DAILY for 60 Days, #60 Prescribed by: JULIUS MONAHAN on 08/27/16841 Last Action: HELD on 12/23/171516 by TOREY FRANK Clonidine Hcl (Clonidine Hcl) 0.1 Mg Tablet, 0.1 MG PO TID for 60 Days, #180 Prescribed by: JULIUS MONAHAN on 08/27/16841 Last Action: Continued on 12/23/171516 by TOREY FRANK Doxazosin Mesylate (Cardura) 4 Mg Tablet, 1 TAB PO DAILY, #30 Ref 5 (Reported) Entered as Reported by: KATHLEEN ART on 08/25/161057 Last Action: Continued on 12/23/171516 by TOREY FRANK Folic Acid (Folic Acid) 1 Mg Tablet, 1 MG PO DAILY for 14 Days, #14 Prescribed by: JULIUS MONAHAN on 12/25/17 0856 Losartan/Hydrochlorothiazide (Losartan-Hctz 100-12.5 Mg Tab) 1 Each Tablet, 1 TAB PO DAILY, #30 Ref 5 (Reported) Entered as Reported by: KATHLEEN ART on 08/25/161057 Last Action: Converted on 12/23/171516 by TOREY FRANK Metoprolol Tartrate (Metoprolol Tartrate) 50 Mg Tablet, 1 TAB PO BID, #60 Ref 5 (Reported) Entered as Reported by: KATHLEEN ART on 08/25/161057 Last Action: Continued on 12/23/171516 by TOREY FRANK Multivits,Ca,Minerals/Iron/Fa (Thera-M Tablet) 1 Each Tablet, 1 TAB PO DAILY for 14 Days, #14 Prescribed by: JULIUS MONAHAN on 12/25/17 0856 Pantoprazole Sodium (Pantoprazole Sodium) 40 Mg Tablet.dr, 1 TAB PO DAILY, #30 Ref 3 (Reported) Entered as Reported by: KATHLEEN ART on 08/25/161057 Last Action: Continued on 12/23/171516 by TOREY FRANK Potassium Chloride (Potassium Chloride) 10 Meq Capsule.er, 10 MEQ PO DAILY, ( Reported) Entered as Reported by: KATHLEEN ART on 08/25/161057 Last Action: Continued on 12/23/171516 by TOREY FRANK Simvastatin (Simvastatin) 20 Mg Tablet, 1 TAB PO QHS, #30 Ref 5 (Reported) Entered as Reported by: KATHLEEN ART on 08/25/161057 Last Action: Converted on 12/23/171516 by TOREY FRANK Thiamine Mononitrate (Vitamin B-1) 100 Mg Tablet, 100 MG PO DAILY for 14 Days, # 14 Prescribed by: JULIUS MONAHAN on 12/25/17 0856 JULIUS MONAHAN MD Dec 25, 2017 09:58
[2017-12-25 11:00] VITALS: BP 137/84
[2017-12-25] MEDS: DOXAZOSIN MESYLATE 4 MG TABLET. PO SCH (11:58)
[2017-12-25] MEDS: LOSARTAN POTASSIUM 50 MG TABLET. PO SCH (12:01)
[2017-12-25 15:00] VITALS: BP 139/85
[2017-12-25] MEDS: ENOXAPARIN 40 MG/0.4 ML SYRINGE. SQ SCH (16:00)
== END 2017-12-25 17:00 | DRG 177 ==
LOC: ER 08:49 → 5 NORTH 10:00
PROVIDERS: ADMIT Internal Medicine; ATTEND Internal Medicine
DX: J69.0 Pneumonitis due to inhalation of food and vomit (principal); E43 Unspecified severe protein-calorie malnutrition; I50.32 Chronic diastolic (congestive) heart failure; J15.6 Pneumonia due to other Gram-negative bacteria; E78.00 Pure hypercholesterolemia, unspecified; G62.9 Polyneuropathy, unspecified; I11.0 Hypertensive heart disease with heart failure; F10.229 Alcohol dependence with intoxication, unspecified; M17.0 Bilateral primary osteoarthritis of knee; W18.39XA Other fall on same level, initial encounter; Y93.89 Activity, other specified; Y92.89 Other specified places as the place of occurrence of the external cause; Y99.8 Other external cause status; Z87.891 Personal history of nicotine dependence; I95.9 Hypotension, unspecified
CPT/HCPCS: 36415; 70450; 71045; 80053; 81001; 83605; 83880; 84484; 85025; 85610; 87040; 87086; 90471; 90715; 93005; 94640; 94760; 96361; 96365; G0480; J0456; J0690; J0696; J1650; J1956; J2060; J2405; J2543; J7030; J7050; J7620; Q0144; 97530; 99285-25

== ENCOUNTER 2019-05-12 14:20 | Inpatient (IN) | payer OTHER ==
[~2019-05-12 14:20] MED LIST changes: +AMLO5TAB10 PO; +ASPI325T8 PO; +FOLI1TAB16 PO; +LACT20SO PO; +METO25TA4 PO; +MULT-697 PO; +MULT1TAB90 PO; -PANT40TA5 PO; +PANT40TA77 PO; +PRED-220 PO; +SIMV20TA18 PO; -SIMV20TA3 PO; +THIA100T22 PO
[2019-05-12] MEDS ORDERED: ONDANSETRON PF 4 MG/2 ML VIAL. IVP PRN (15:15)
[2019-05-12] MEDS ORDERED: BISACODYL 10 MG SUPP.RECT. PR PRN (15:15)
--- NOTE | 2019-05-12 15:18 | NUR ---
patient readmitted under [facility].
[2019-05-12] MEDS ORDERED: SCOPOLAMINE 1.5MG PATCH. TD SCH (16:00)
[2019-05-12] MEDS: HYDROmorphone 2 MG/ML VIAL IV SCH ×4 (16:20→22:17)
[2019-05-12 19:00] VITALS: BP 82/54
[2019-05-13] MEDS: HYDROmorphone 2 MG/ML VIAL IV SCH ×2 (00:14→02:10)
--- NOTE | 2019-05-13 04:10 | NUR ---
Called [facility] [phone] to inform of patient's passing. No answer and no voicemail is set up. Will attempt again in approximately 30 minutes.
--- NOTE | 2019-05-13 04:47 | NUR ---
Called second number listed Gerson Mendes [phone], informed her of patient's passing. Also attempted to call [facility] [phone] again, she answered and was informed of patient's passing as well.
--- NOTE | 2019-05-13 05:30 | NUR ---
publishing systems analyst has arrived. Patient's IV removed. Still awaiting family arrival. Will discharge patient at this time.
--- NOTE | 2019-05-13 07:42 | NUR ---
Spoke with patient's , states that she is fine with whatever home the significant other chooses. Significant other has chosen Mrs. Steven Cobb [facility]. also states that she will try to be here as soon as she can but if we need to move patient to [facility] before she gets here at approximately 0900 then that is fine. States she is here as a support for patient's significant other. Spoke with clinical haematologist, states that there is no paperwork that she needs to sign. No paperwork from [facility] that needs to sign. Nursing food preparation supervisor updated.
== END 2019-05-13 03:45 | disposition expired | DRG 441 ==
LOC: 5 SOUTH 14:20 → MERGE 14:20
PROVIDERS: ADMIT Internal Medicine; ATTEND Internal Medicine
DX: K72.90 Hepatic failure, unspecified without coma (principal); E43 Unspecified severe protein-calorie malnutrition; I21.4 Non-ST elevation (NSTEMI) myocardial infarction; K86.1 Other chronic pancreatitis; R74.0 Nonspecific elevation of levels of transaminase and lactic acid dehydrogenase [LDH]; K74.60 Unspecified cirrhosis of liver; Z66 Do not resuscitate
CPT/HCPCS: J1170; J2060; G0378